=== PATIENT | female | born 1945 | race Caucasian/White ===

== ENCOUNTER 2020-09-13 12:53 | Emergency (ER) | payer MEDICARE, OTHER ==
--- NOTE | 2020-09-13 13:25 | ER Document Report ---
ED Medical Screen (RME) - General Chief Complaint: Shortness Of Breath Stated Complaint: SHORTNESS OF BREATH Time Seen by Provider: 09/13/20 13:17 - HPI Notes: 09/13/20 13:22 75 year old with a history of hypertension, hyperlipidemia and hypothyroidism female presents to ER today with complaints of SOB on exertion that has become progressively worse since starting over the weekend. Reports she started with LUQ abd pain and bloating today. denies any cp, n/v/d, fevers, chills. has not tried any otc meds for her symptoms. Denies any pedal edema. Denies any asthma, emphysema, smoking. Denies any Covid positive exposure. last bowel movement was yesterday, normal for patient. I have greeted and performed a rapid initial assessment of this patient. A comprehensive ED assessment and evaluation of the patient, analysis of test results and completion of the medical decision making process will be conducted by additional ED providers. PHYSICAL EXAMINATION: GENERAL: Well-appearing, well-nourished and in no acute distress. HEAD: Atraumatic, normocephalic. EYES: Pupils equal round extraocular movements intact, conjunctiva are normal. NECK: Normal range of motion CV: s1, s2 regular LUNGS: No respiratory distress abd: LUQ abd pain on palpation, no cva tenderness appreciated. Physical Exam - Vital signs Vitals: Temp Pulse Resp BP Pulse Ox 98.5 F 107 H 20 127/77 H 100 09/13/20 13:02 09/13/20 13:02 09/13/20 13:02 09/13/20 13:02 09/13/20 13:02 Course - Vital Signs Vital signs: Temp Pulse Resp BP Pulse Ox 98.5 F 107 H 20 127/77 H 100 09/13/20 13:02 09/13/20 13:02 09/13/20 13:02 09/13/20 13:02 09/13/20 13:02
--- NOTE | 2020-09-13 14:04 | RADIOLOGY REPORT (SQ) ---
EXAM DESCRIPTION: CHEST SINGLE VIEW IMAGES COMPLETED DATE/TIME: 09/13/2020 1:47 pm REASON FOR STUDY: LUQ abd pain x 3 days, +bloating COMPARISON: None. EXAM PARAMETERS: NUMBER OF VIEWS: One view. TECHNIQUE: Single frontal radiographic view of the chest acquired. RADIATION DOSE: NA LIMITATIONS: None. FINDINGS: LUNGS AND PLEURA: No opacities, masses or pneumothorax. No pleural effusion. MEDIASTINUM AND HILAR STRUCTURES: No masses. Contour normal. HEART AND VASCULAR STRUCTURES: Heart normal in size. Normal vasculature. BONES: No acute findings. HARDWARE: None in the chest. OTHER: No other significant finding. IMPRESSION: NO ACUTE RADIOGRAPHIC FINDING IN THE CHEST. TECHNICAL DOCUMENTATION: JOB ID: [id number] 2010 [employer]- All Rights Reserved Reading location - IP/workstation name: [email or web address]
[2020-09-13 14:08] LABS: ABSOLUTE BASOPHILS # (AUTO) 0.1 10^3/uL (0.0-0.2); ABSOLUTE EOSINOPHILS # (AUTO) 0.2 10^3/uL (0.0-0.6); ABSOLUTE LYMPHOCYTES (AUTO) 1.5 10^3/uL (0.5-4.7); ABSOLUTE NEUT (AUTO) 14.4 10^3/uL (1.7-8.2); BASOPHILS % (AUTO) 0.5 % (0-2); EOSINOPHILS % (AUTO) 0.9 % (0-6); HEMATOCRIT 36.2 % (36.0-47.0); HEMOGLOBIN 12.1 g/dL (12.0-15.5); LYMPHOCYTES % (AUTO) 8.8 % (13-45); MEAN CORPUSCULAR HEMOGLOBIN 26.3 pg (27.0-33.4); MEAN CORPUSCULAR HGB CONC 33.3 g/dL (32.0-36.0); MEAN CORPUSCULAR VOLUME 79 fl (80-97); MONOCYTES % (AUTO) 5.7 % (3-13); PLATELET COUNT 422 10^3/uL (150-450); RED BLOOD COUNT 4.59 10^6/uL (3.72-5.28); RED CELL DISTRIBUTION WIDTH 15.1 % (11.5-14.0); SEGMENTED NEUTROPHILS % (AUTO) 84.1 % (42-78); TOTAL CELLS COUNTED % (AUTO) 100 %; WHITE BLOOD COUNT 17.1 10^3/uL (4.0-10.5)
--- NOTE | 2020-09-13 14:19 | EKG REPORT ---
SEVERITY:- ABNORMAL ECG - SINUS TACHYCARDIA ABNRM R PROG, CONSIDER ASMI OR LEAD PLACEMENT NONSPECIFIC T ABNORMALITIES, LATERAL LEADS : Confirmed by: Ayla Landers MD 13-Sep-2020 14:18:42
[2020-09-13 14:26] LABS: ALBUMIN 3.4 g/dL (3.5-5.0); ALKALINE PHOSPHATASE 94 U/L (38-126); ANION GAP 10 (5-19); ASPARTATE AMINO TRANSFERASE 35 U/L (14-36); BILIRUBIN,DIRECT 0.1 mg/dL (0.0-0.4); BILIRUBIN,TOTAL 0.8 mg/dL (0.2-1.3); BLOOD UREA NITROGEN 24 mg/dL (7-20); CARBON DIOXIDE 25 mmol/L (22-30); CHLORIDE 93 mmol/L (98-107); GLUCOSE 151 mg/dL (75-110); POTASSIUM 4.5 mmol/L (3.6-5.0); TOTAL PROTEIN 6.1 g/dL (6.3-8.2)
--- NOTE | 2020-09-13 14:56 | ER Document Report ---
ED General - General Chief Complaint: Shortness Of Breath Stated Complaint: SHORTNESS OF BREATH Time Seen by Provider: 09/13/20 13:17 Mode of Arrival: Ambulatory Information source: Patient - HPI Notes: Patient presents complaining of shortness of breath for 3 days and abdominal pain for 1 day. No vomiting but some nausea. Decreased appetite. No diarrhea. No problems urination. No cough cold or congestion. She denies any known Covid virus exposures. The abdominal pain is been mild and crampy. Nothing makes it better or worse. It radiates throughout her abdomen. She has had a hysterectomy but no other previous abdominal surgeries. - Related Data Allergies/Adverse Reactions: No Known Allergies Allergy (Verified 09/13/20 14:33) Home Medications: simvastatin, bisoprolol, levothyroxine Past Medical History - General Information source: Patient - Social History Smoking Status: Former Smoker Frequency of alcohol use: None Drug Abuse: None Family History: Reviewed & Not Pertinent Patient has homicidal ideation: No - Past Medical History Cardiac Medical History: Reports: Hx Hypercholesterolemia, Hx Hypertension Past Surgical History: Reports: Hx Section, Hx Hysterectomy, Hx Oral Surgery - wisdom teeth Review of Systems - Review of Systems Constitutional: denies: Chills, Fever Cardiovascular: denies: Chest pain, Palpitations Respiratory: Short of breath. denies: Cough, Hemoptysis -: Yes All other systems reviewed and negative Physical Exam - Vital signs Vitals: Temp Pulse Resp BP Pulse Ox 98.5 F 107 H 20 127/77 H 100 09/13/20 13:02 09/13/20 13:02 09/13/20 13:02 09/13/20 13:02 09/13/20 13:02 Interpretation: Tachycardic - General General appearance: Appears well, Alert - HEENT Head: Normocephalic, Atraumatic Eyes: Normal Pupils: PERRL - Respiratory Respiratory status: No respiratory distress Chest status: Nontender Breath sounds: Decreased air movement Chest palpation: Normal - Cardiovascular Rhythm: Tachycardia Heart sounds: Normal auscultation Murmur: No - Abdominal Inspection: Normal Distension: Distended Bowel sounds: Normal Tenderness: Tender Organomegaly: No organomegaly - Back Back: Normal, Nontender - Extremities General upper extremity: Normal inspection, Nontender, Normal color, Normal ROM, Normal temperature General lower extremity: Normal inspection, Nontender, Normal color, Normal ROM, Normal temperature, Normal weight bearing. No: Annie's sign - Neurological Neuro grossly intact: Yes Cognition: Normal Orientation: AAOx4 [place] Coma Scale Eye Opening: Spontaneous [place] Coma Scale Verbal: Oriented [place] Coma Scale Motor: Obeys Commands [place] Coma Scale Total: 15 Speech: Normal Motor strength normal: LUE, RUE, LLE, RLE Sensory: Normal - Psychological Associated symptoms: Normal affect, Normal mood - Skin Skin Temperature: Warm Skin Moisture: Dry Skin Color: Normal Course - Re-evaluation Re-evalutation: 09/13/20 18:45 Patient presents with abdominal distention and shortness of breath. She is found to have an elevated white blood cell count on laboratories as well. She does have a urinary tract infection. She also has what appears to be metastatic cancer. I have called and discussed this case with the oncologist, Dr. Ennis. He will see the patient in the office tomorrow. Patient is agreeable to this. For the shortness of breath I did consider the possibly patient may have a pulmonary embolism given the diagnosis of possible cancer. However patient has a pulse ox of 100% on room air. In addition she cannot receive the dye because she received the dye for the CAT scan of the abdomen. I told her to make sure if she is still short of breath mild to discuss a a CT scan of the chest to look for a blood clot with the oncologist. - Vital Signs Vital signs: Temp Pulse Resp BP Pulse Ox 98.5 F 107 H 20 127/77 H 100 09/13/20 13:02 09/13/20 13:02 09/13/20 13:02 09/13/20 13:02 09/13/20 13:02 - Laboratory Results Result Diagrams: 09/13/20 13:28 09/13/20 13:28 Laboratory Results Interpreted: 09/13/20 09/13/20 09/13/20 13:28 13:28 15:47 WBC 17.1 H MCV 79 L MCH 26.3 L RDW 15.1 H Lymph % (Auto) 8.8 L Absolute Neuts (auto) 14.4 H Seg Neutrophils % 84.1 H Sodium 128.4 L Chloride 93 L BUN 24 H Est GFR ( Amer) 58 L Est GFR (MDRD) Non-Af 48 L Glucose 151 H Total Protein 6.1 L Albumin 3.4 L Urine Protein 30 H Urine Urobilinogen 2.0 H Ur Leukocyte Esterase LARGE H Urine Ascorbic Acid 40 H Critical Laboratory Results Reviewed: No Critical Results - Radiology Results Critical Radiology Results Reviewed: Yes Attending or Supervising Physician who Reviewed Radiology: GOPI WOODY Discharge - Discharge Clinical Impression: Abdominal pain Qualifiers: Abdominal location: generalized Qualified Code(s): R10.84 - Generalized abdominal pain Dyspnea Qualifiers: Dyspnea type: other forms of dyspnea Qualified Code(s): R06.09 - Other forms of dyspnea UTI (urinary tract infection) Qualifiers: Urinary tract infection type: acute cystitis Hematuria presence: without hematuria Qualified Code(s): N30.00 - Acute cystitis without hematuria Abdominal mass Qualifiers: Abdominal location: left upper quadrant Qualified Code(s): R19.02 - Left upper quadrant abdominal swelling, mass and lump Condition: Stable Disposition: HOME, SELF-CARE Instructions: Abdominal Pain ([facility]), Urinary Tract Infection ([facility]) Prescriptions: Ondansetron [Zofran Odt 4 mg Tablet] 1 - 2 tab PO Q4HP PRN #10 tab.rapdis PRN Reason: Cefdinir 300 mg PO BID 7 Days #14 capsule Hydrocodone/Acetaminophen [[place] 5-325 mg Tablet] 1 tab PO Q6 PRN 3 Days #12 tablet PRN Reason: For Pain Referrals: IWONA WHITFIELD MD [Primary Care Provider] - Follow up as needed BENNY ENNIS MD [ACTIVE STAFF] - Follow up tomorrow
[2020-09-13 16:06] LABS: AMORPHOUS SEDIMENT,URINE TRACE /HPF; APPEARANCE,URINE CLOUDY; BILIRUBIN,URINE NEGATIVE (NEGATIVE); COLOR,URINE AMBER; GLUCOSE, URINE NEGATIVE (NEGATIVE); KETONES,URINE NEGATIVE (NEGATIVE); LEUKOCYTE ESTERASE,URINE LARGE (NEGATIVE); NITRITE,URINE NEGATIVE (NEGATIVE); PROTEIN,URINE 30 mg/dL (NEGATIVE); URINE SPECIFIC GRAVITY 1.019
--- NOTE | 2020-09-13 18:29 | RADIOLOGY REPORT (SQ) ---
EXAM DESCRIPTION: CT ABD/PELVIS WITH IV ORAL IMAGES COMPLETED DATE/TIME: 09/13/2020 2:33 pm REASON FOR STUDY: LUQ abd pain x 3 days, +bloating COMPARISON: None. TECHNIQUE: CT scan of the abdomen and pelvis performed using helical scanning technique with dynamic intravenous contrast injection. Oral contrast was also given. Images reviewed with lung, soft tissu e, and bone windows. Reconstructed coronal and sagittal MPR images reviewed. Delayed images for evalu ation of the urinary system also acquired. All images stored on PACS. All CT scanners at this facility use dose modulation, iterative reconstruction, and/or weight based d osing when appropriate to reduce radiation dose to as low as reasonably achievable (ALARA). [facility]: Dose Right [facility]: CareDose [facility]: Dose Right [facility]: Teradose 4D [facility]: [employer] CONTRAST TYPE AND DOSE: contrast/concentration: Isovue 350.00 mmol/ml; Total Contrast Delivered: 100 .0 ml; Total Saline Delivered: 72.0 ml RENAL FUNCTION: Creatinine 1.12 RADIATION DOSE: CT Rad equipment meets quality standard of care and radiation dose reduction techniq ues were employed. CTDIvol: 15.4 - 18.4 mGy. DLP: 1966 mGy-cm.. LIMITATIONS: None. FINDINGS: LOWER CHEST: Minimal basilar atelectasis/scarring. LIVER: Normal size. No masses. No dilated ducts. SPLEEN: Normal size. No focal lesions. PANCREAS: No masses. No significant calcifications. No adjacent inflammation or peripancreatic fluid collections. Pancreatic duct not dilated. GALLBLADDER: Cholelithiasis with single large gallstone demonstrated measuring up to 2.7 cm. No asso ciated inflammatory changes. ADRENAL GLANDS: No significant masses or asymmetry. RIGHT KIDNEY AND URETER: No solid masses. No significant calcifications. No hydronephrosis or hyd roureter. LEFT KIDNEY AND URETER: No solid masses. No significant calcifications. No hydronephrosis or hydr oureter. AORTA AND VESSELS: No aneurysm. No dissection. Renal arteries, SMA, celiac without stenosis. RETROPERITONEUM: Enlarged left periaortic lymph node suspicious for metastatic adenopathy. Represent ative lymph node measures 2.0 x 1.8 cm (series 4, image 30). BOWEL AND PERITONEAL CAVITY: Multiple masses along the gastrohepatic ligament suspicious for metastat ic lymphadenopathy. There is a mass along the lesser curvature of the stomach measuring approximatel y 5.9 x 4.7 cm which could represent metastatic lymphadenopathy. Cannot exclude an exophytic lesion off of the stomach. There is some diffuse gastric wall thickening. Multiple nodules also demonstrat ed in the left upper quadrant lateral to the stomach. Moderate ascites with multiple small nodules/o mental caking along the anterior abdomen and pelvis suspicious for peritoneal metastatic disease. No small bowel obstruction. There may be some small nodules also demonstrated posteriorly on the right (series 6, image 47 and image 61). Moderate stool in the colon. No significant colon wall thickeni ng. APPENDIX: Partially visualized normal appendix. PELVIS: Status post hysterectomy. Urinary bladder demonstrates a small amount of gas in the lumen, p robably due to recent instrumentation. ABDOMINAL WALL: No masses. No hernias. BONES: Circumscribed small sclerotic lesion in the left iliac bone probably representing a bone islan d. No destructive bone lesions. OTHER: No other significant finding. IMPRESSION: 1. Multiple masses in the central and left upper abdomen suspicious for metastatic dise ase. Mass along the lesser curvature of the stomach could represent metastatic lymphadenopathy. Can not definitively exclude an exophytic mass arising off of the stomach. There is some diffuse gastric wall thickening which could reflect primary neoplasm. 2. Moderate ascites with omental caking and peritoneal nodularity suspicious for peritoneal carcinom atosis. 3. Cholelithiasis. 4. Gas within the urinary bladder lumen is probably iatrogenic. Correlate with any recent history o f instrumentation. TECHNICAL DOCUMENTATION: JOB ID: [id number] Quality ID # [id number]: Final reports with documentation of one or more dose reduction techniques (e.g., Au tomated exposure control, adjustment of the mA and/or kV according to patient size, use of iterative reconstruction technique) 2010 [employer]- All Rights Reserved Reading location - IP/workstation name: [email or web address]
[2020-09-13 19:29] VITALS: BP 116/68
== END 2020-09-13 19:23 | disposition home or self-care (01) ==
LOC: ER 12:53
DX: R10.84 Generalized abdominal pain (principal); R06.09 Other forms of dyspnea; R19.02 Left upper quadrant abdominal swelling, mass and lump; N30.00 Acute cystitis without hematuria; R06.02 Shortness of breath; R11.0 Nausea; D72.829 Elevated white blood cell count, unspecified; E78.00 Pure hypercholesterolemia, unspecified; I10 Essential (primary) hypertension; Z90.710 Acquired absence of both cervix and uterus
CPT/HCPCS: 36415; 71045; 74177; 80053; 81001; 83690; 84484; 85025; 93005; 93010; 99285

== ENCOUNTER 2020-09-15 11:06 | Day surgery (SDC) | payer MEDICARE, OTHER ==
[2020-09-15 12:18] LABS: HEMATOCRIT 35.4 % (36.0-47.0); HEMOGLOBIN 11.5 g/dL (12.0-15.5); MEAN CORPUSCULAR HEMOGLOBIN 25.7 pg (27.0-33.4); MEAN CORPUSCULAR HGB CONC 32.5 g/dL (32.0-36.0); MEAN CORPUSCULAR VOLUME 79 fl (80-97); PLATELET COUNT 400 10^3/uL (150-450); RED BLOOD COUNT 4.48 10^6/uL (3.72-5.28); RED CELL DISTRIBUTION WIDTH 15.5 % (11.5-14.0); WHITE BLOOD COUNT 23.4 10^3/uL (4.0-10.5)
[2020-09-15 12:26] LABS: INTERNATIONAL RATION (INR) 1.21; PROTHROMBIN TIME 15.5 SEC (11.4-15.4)
[2020-09-15 12:27] LABS: PARTIAL THROMBOPLASTIN TIME 29.6 SEC (23.5-35.8)
[2020-09-15 12:41] LABS: BLOOD UREA NITROGEN 33 mg/dL (7-20)
--- NOTE | 2020-09-15 15:35 | RADIOLOGY REPORT (SQ) ---
EXAM DESCRIPTION: U/S ABD PARACENTESIS IMAGES COMPLETED DATE/TIME: 09/15/2020 2:17 pm REASON FOR STUDY: MALIGNANT ASCITES COMPARISON None. LIMITATIONS: None. PROCEDURE: After obtaining informed consent, the patient was brought to the ultrasound suite. The p rocedure was performed with the patient on a gurney. Ultrasound was used to identify a prominent poc ket of ascites in the right lower quadrant. An appropriate access site was selected. The patient wa s prepped and draped in usual sterile fashion. The access site was anesthetized with 7 mL 1% lidoca ine. A Bixv-O-[id number] needle was advanced into the fluid. After aspiration of fluid the needle, th e catheter was advanced off the needle into the fluid. A total of 4750 mL of serosanguineous fluid w as removed. Fluid was sent to lab for analysis per doctor's orders. The patient tolerated the proce dure well left the department in satisfactory condition. IMPRESSION: Successful ultrasound-guided paracentesis COMMENT: Patient medication list reviewed: Yes- Quality ID# [id number]:Eligible professional attests to doc umenting in the medical record they obtained, updated, or reviewed the patient's current medications. TECHNICAL DOCUMENTATION: JOB ID: [id number] 2010 [email or web address]- All Rights Reserved Reading location - IP/workstation name: [email or web address]
[2020-09-15 16:56] VITALS: BP 97/59
== END 2020-09-15 16:20 | disposition home or self-care (01) ==
LOC: RAD 11:06
PROVIDERS: ATTEND Internal Medicine
DX: R18.8 Other ascites (principal); E86.0 Dehydration; R11.0 Nausea; Z79.01 Long term (current) use of anticoagulants; Z79.84 Long term (current) use of oral hypoglycemic drugs; Z79.899 Other long term (current) drug therapy
CPT/HCPCS: 36415; 49083; 82565; 84520; 85027; 85610; 85730; 88305; 88313; 88341; 88342

== ENCOUNTER 2020-09-15 16:38 | Inpatient (IN) | payer MEDICARE ==
--- NOTE | 2020-09-15 17:25 | ER Document Report ---
ED Medical Screen (RME) - General Stated Complaint: SHORTNESS OF BREATH Time Seen by Provider: 09/15/20 17:11 Primary Care Provider: IWONA WHITFIELD MD [Primary Care Provider] - Follow up as needed Notes: 35-year-old female with newly diagnosed masses in the abdomen with ascites comes emergency department for chief complaint of difficulty breathing. Patient states with any exertion including sitting up she becomes short of breath. She denies lower extremity swelling, history of DVT. Patient had abdominal centesis today with drainage of 4700 cc from the abdomen. She states she thought she would feel better afterwards but she still has shortness of breath. She has started following with Dr. Bowser (as of yesterday). - Related Data Allergies/Adverse Reactions: No Known Allergies Allergy (Verified 09/13/20 14:33) Past Medical History - Social History Chew tobacco use (# tins/day): No Frequency of alcohol use: None Drug Abuse: None - Past Medical History Cardiac Medical History: Reports: Hx Hypercholesterolemia, Hx Hypertension Denies: Hx Coronary Artery Disease, Hx Heart Attack Pulmonary Medical History: Denies: Hx Asthma, Hx Bronchitis, Hx COPD, Hx Pneumonia Neurological Medical History: Denies: Hx Cerebrovascular Accident, Hx Seizures Musculoskeltal Medical History: Denies Hx Arthritis Past Surgical History: Reports: Hx Section, Hx Hysterectomy, Hx Oral Surgery - wisdom teeth - Immunizations Hx Diphtheria, Pertussis, Tetanus Vaccination: No - UNKNOWN Physical Exam - Vital signs Vitals: Temp 97.3 F 09/15/20 16:38 - Respiratory Breath sounds: Other - Coarse breath sounds in the lower lung huynh but no overt rales. Speaks in full sentences. No respiratory distress. Course - Re-evaluation Re-evalutation: 09/15/20 17:25 I have greeted and performed a rapid initial assessment of this patient. A comprehensive ED assessment and evaluation of the patient, analysis of test r esults and completion of the medical decision making process will be conducted by additional ED providers. - Vital Signs Vital signs: Temp Pulse Resp BP Pulse Ox 97.3 F 09/15/20 16:38 Doctor's Discharge - Discharge Referrals: IWONA WHITFIELD MD [Primary Care Provider] - Follow up as needed
[2020-09-15 18:14] LABS: HEMOGLOBIN 11.4 g/dL (12.0-15.5); MEAN CORPUSCULAR HEMOGLOBIN 25.7 pg (27.0-33.4); MEAN CORPUSCULAR HGB CONC 32.5 g/dL (32.0-36.0); MEAN CORPUSCULAR VOLUME 79 fl (80-97); PLATELET COUNT 411 10^3/uL (150-450); RED BLOOD COUNT 4.44 10^6/uL (3.72-5.28); RED CELL DISTRIBUTION WIDTH 15.3 % (11.5-14.0); WHITE BLOOD COUNT 20.7 10^3/uL (4.0-10.5)
[2020-09-15 18:32] LABS: ALBUMIN 2.7 g/dL (3.5-5.0); ALKALINE PHOSPHATASE 75 U/L (38-126); ASPARTATE AMINO TRANSFERASE 35 U/L (14-36); BILIRUBIN,DIRECT 0.2 mg/dL (0.0-0.4); BILIRUBIN,TOTAL 0.6 mg/dL (0.2-1.3); BLOOD UREA NITROGEN 35 mg/dL (7-20); CALCIUM 8.1 mg/dL (8.4-10.2); GLUCOSE 143 mg/dL (75-110); POTASSIUM 5.1 mmol/L (3.6-5.0); TOTAL PROTEIN 5.2 g/dL (6.3-8.2)
[2020-09-15 18:37] LABS: CARBON DIOXIDE 26 mmol/L (22-30); CHLORIDE 95 mmol/L (98-107)
[2020-09-15 18:38] LABS: ANION GAP 5 (5-19)
[2020-09-15 18:41] LABS: ABSOLUTE LYMPHOCYTES# (MANUAL) 1.9 10^3/uL (0.5-4.7); ANISOCYTOSIS SLIGHT; BASOPHILS % (MANUAL) 0 % (0-2); EOSINOPHILS % (MANUAL) 0 % (0-6); LYMPHOCYTES % (MANUAL) 9 % (13-45); MONOCYTES % (MANUAL) 5 % (3-13); PLATELET COMMENT ADEQUATE; SEGMENTED NEUTROPHILS % (MAN) 86 % (42-78); TOTAL CELLS COUNTED 100
[2020-09-15 18:42] LABS: HYPOCHROMASIA SLIGHT
[2020-09-15 18:43] LABS: BURR CELLS 1+; OVALOCYTES SLIGHT
[2020-09-15 18:44] LABS: POLYCHROMASIA SLIGHT
[2020-09-15] MEDS ORDERED: MORPHINE SULFATE 10 MG/ML INJ IV ONE (19:00)
--- NOTE | 2020-09-15 19:13 | RADIOLOGY REPORT (SQ) ---
EXAM DESCRIPTION: CTA CHEST IMAGES COMPLETED DATE/TIME: 09/15/2020 3:51 pm REASON FOR STUDY: Dyspnea on exertion, shortness of breath, cancer COMPARISON: Single-view chest 09/13/[address] abdomen pelvis 09/13/2020. TECHNIQUE: CT scan of the chest performed using helical scanning technique with dynamic intravenous contrast injection. Images reviewed with lung, soft tissue and bone windows. Reconstructed coronal and sagittal MPR images reviewed. Additional 3 dimensional post-processing performed to develop Maximal Intensity Projection images (HI P). All images stored on PACS. All CT scanners at this facility use dose modulation, iterative reconstruction, and/or weight based d osing when appropriate to reduce radiation dose to as low as reasonably achievable (ALARA). [facility]: Dose Right [facility]: CareDose [facility]: Dose Right [facility]: Teradose 4D [facility]: [employer] CONTRAST TYPE AND DOSE: contrast/concentration: Isovue 350.00 mmol/ml; Total Contrast Delivered: 74. 0 ml; Total Saline Delivered: 48.0 ml Contrast bolus optimized for the pulmonary arteries. Not diagnostic for the aorta. RENAL FUNCTION: Creatinine 1.49 RADIATION DOSE: CT Rad equipment meets quality standard of care and radiation dose reduction techniq ues were employed. CTDIvol: 9.9 - 14.8 mGy. DLP: 509 mGy-cm. . LIMITATIONS: None. FINDINGS: LUNGS AND PLEURA: Some mild linear opacities likely representing atelectasis. No signific ant consolidation or suspicious pulmonary nodule. No pleural effusion. No pneumothorax. 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 HEART: No pericardial effusion. Coronary artery calcifications. There is some enlargement of the rig ht heart with slight leftward deviation of the intraventricular septum. PULMONARY ARTERIES: Extensive filling defects within the distal aspect of the main right and main lef t pulmonary arteries extending into the lobar, segmental, and subsegmental pulmonary artery supplying all lobes. No larger central saddle pulmonary embolism HILAR AND MEDIASTINAL STRUCTURES: No identified masses or abnormal nodes. HARDWARE: None in the chest. UPPER ABDOMEN: Masses in the upper abdomen are partially visualized and similar to recent CT abdomen pelvis. Mild ascites and evidence of peritoneal carcinomatosis. THYROID AND OTHER SOFT TISSUES: No masses. No adenopathy. BONES: No acute or significant finding. 3D MIPS: Confirm above findings. OTHER: No other significant finding. IMPRESSION: Extensive bilateral pulmonary emboli with evidence of right heart strain. COMMENT: This report was called to JAYLA MARLEY at16:02 [place] time on 09/15/2020. Quality ID # 436: Final reports with documentation of one or more dose reduction techniques (e.g., Au tomated exposure control, adjustment of the mA and/or kV according to patient size, use of iterative reconstruction technique) TECHNICAL DOCUMENTATION: JOB ID: [id number] 2010 [employer]- All Rights Reserved Reading location - IP/workstation name: [email or web address]
--- NOTE | 2020-09-15 20:55 | RADIOLOGY REPORT (SQ) ---
EXAM DESCRIPTION: CT HEAD WITHOUT CLINICAL HISTORY: 75 years Female cancer TECHNIQUE: Noncontrast CT head. All CT scans at this facility use dose modulation, iterative reconstruction, and/or weight based dosing when appropriate to reduce radiation dose to as low as reasonably achievable. COMPARISON: None. FINDINGS: A small subcentimeter area of heterogeneity, with both hyperdense and hypodense components, is seen in the right parietal cortical/subcortical region, incompletely evaluated on this exam. Visualized portions of paranasal sinuses and mastoids are clear. Small well-circumscribed exophytic calcific structures projecting off the outer table of the frontal calvarium bilaterally are nonspecific but favored to represent benign calcific lesions. IMPRESSION: Small area of heterogeneity in the right parietal cortical/subcortical region. Further evaluation with contrast enhanced MRI is recommended. Given presence of hyperdensity, a subtle hemorrhagic component is not excluded.
[2020-09-15] MEDS ORDERED: ENOXAPARIN SODIUM INJ 100 MG/1 ML DISP.SYRIN SUBCUT ONE (21:39)
[2020-09-15] MEDS ORDERED: VANCOMYCIN HCL INJ 1000 MG VIAL IV ONE (21:40)
[2020-09-15] MEDS ORDERED: HEPARIN SOD (PORCINE) 1,000 UNIT/ML 1 ML VIAL IV ONE (21:40)
[2020-09-15] MEDS ORDERED: CEFEPIME 2 GM/D5W RTU 2 GM/50 ML RTUPB IV ONE (21:41)
[2020-09-15] MEDS ORDERED: APIXABAN 5 MG TABLET PO ONE (21:41)
--- NOTE | 2020-09-15 21:49 | ER Document Report ---
ED Respiratory Problem - General Chief Complaint: Shortness Of Breath Stated Complaint: SHORTNESS OF BREATH Time Seen by Provider: 09/15/20 17:11 Primary Care Provider: IWONA WHITFIELD MD [Primary Care Provider] - Follow up as needed Mode of Arrival: Ambulatory Information source: Patient Notes: AYAKA CAMACHO) Course - Re-evaluation Re-evalutation: 09/15/20 19:02 Troponin is elevated at 0.4. I strongly suspect pulmonary embolism. Radiologist called and reports extensive clot load with some right heart strain. I added CT of the head. - Vital Signs Vital signs: Temp Pulse Resp BP Pulse Ox 97.3 F 09/15/20 16:38 - Laboratory Results Result Diagrams: 09/15/20 17:56 09/15/20 17:56 Laboratory Results Interpreted: 09/15/20 09/15/20 17:56 17:56 WBC 20.7 H Hgb 11.4 L Hct 35.0 L MCV 79 L MCH 25.7 L RDW 15.3 H Seg Neuts % (Manual) 86 H Lymphocytes % (Manual) 9 L Abs Neuts (Manual) 17.8 H Sodium 125.5 L Potassium 5.1 H Chloride 95 L BUN 35 H Creatinine 1.53 H Est GFR ( Amer) 40 L Est GFR (MDRD) Non-Af 33 L Glucose 143 H Calcium 8.1 L Total Protein 5.2 L Albumin 2.7 L Critical Laboratory Results Reviewed: Yes Attending or Supervising Physician who Reviewed Labs: HONEY SCRUGGS JR - Radiology Results Critical Radiology Results Reviewed: Yes Attending or Supervising Physician who Reviewed Radiology: HONEY SCRUGGS JR Original Note: ED Medical Screen (BRUCE CAMACHO) - General Stated Complaint: SHORTNESS OF BREATH Time Seen by Provider: 09/15/20 17:11 Primary Care Provider: IWONA WHITFIELD MD [Primary Care Provider] - Follow up as needed Notes: 35-year-old female with newly diagnosed masses in the abdomen with ascites comes emergency department for chief complaint of difficulty breathing. Patient states with any exertion including sitting up she becomes short of breath. She denies lower extremity swelling, history of DVT. Patient had abdominal centesis today with drainage of 4700 cc from the abdomen. She states she thought she would feel better afterwards but she still has shortness of breath. She has started following with Dr. Bowser (as of yesterday). MY NOTES 75-year-old female arrives with chief complaint of having difficulty breathing status post paracentesis today. Patient continues to have shortness of breath and is followed by Dr. Bowser. Patient complains of difficulty moving all extremities all week long. CTA as ordered by Bruce MARLEY it was positive for bilateral PEs but also CT head returned as hyperdensity in the right parietal area subcortical suspected of hemorrhagic and therefore I called Dr. Bowser at 2153 and he advises putting in consult for himself with admission. We will order MRI of her head. We will hold the order for Eliquis and Lovenox heparin until we get a MRI results. - Related Data Allergies/Adverse Reactions: No Known Allergies Allergy (Verified 09/13/20 14:33) Past Medical History - General Information source: Patient - Social History Smoking Status: Never Smoker Cigarette use (# per day): No Chew tobacco use (# tins/day): No Smoking Education Provided: No Frequency of alcohol use: None Drug Abuse: None Lives with: Family Family History: Reviewed & Not Pertinent Patient has suicidal ideation: No Patient has homicidal ideation: No - Past Medical History Cardiac Medical History: Reports: Hx Hypercholesterolemia, Hx Hypertension Denies: Hx Coronary Artery Disease, Hx Heart Attack Pulmonary Medical History: Denies: Hx Asthma, Hx Bronchitis, Hx COPD, Hx Pneumonia Neurological Medical History: Denies: Hx Cerebrovascular Accident, Hx Seizures Musculoskeletal Medical History: Denies Hx Arthritis Past Surgical History: Reports: Hx Section, Hx Hysterectomy, Hx Oral Surgery - wisdom teeth - Immunizations Hx Diphtheria, Pertussis, Tetanus Vaccination: No - UNKNOWN Review of Systems - Review of Systems Constitutional: See HPI, Weakness, Recent illness EENT: No symptoms reported Cardiovascular: See HPI, Dyspnea, Lightheaded Respiratory: See HPI, Short of breath Gastrointestinal: No symptoms reported Genitourinary: No symptoms reported Female Genitourinary: No symptoms reported Musculoskeletal: No symptoms reported Skin: No symptoms reported Hematologic/Lymphatic: No symptoms reported Neurological/Psychological: See HPI, Weakness -: Yes All other systems reviewed and negative Physical Exam - Vital signs Vitals: Temp 97.3 F 09/15/20 16:38 Interpretation: Normal - General General appearance: Appears well, Alert - HEENT Head: Normocephalic, Atraumatic Eyes: Normal Pupils: PERRL - Respiratory Respiratory status: No respiratory distress Chest status: Nontender Breath sounds: Normal Chest palpation: Normal - Cardiovascular Rhythm: Regular Heart sounds: Normal auscultation Murmur: No - Abdominal Inspection: Normal Distension: No distension Bowel sounds: Normal Tenderness: Nontender Organomegaly: No organomegaly - Rectal Hemorrhoids: Other - Deferred - Genitourinary Bimanuel exam: Other - Deferred - Back Back: Normal, Nontender - Extremities General upper extremity: Normal inspection, Nontender, Normal color, Normal ROM, Normal temperature General lower extremity: Normal inspection, Nontender, Normal color, Normal ROM, Normal temperature, Normal weight bearing. No: Annie's sign - Neurological Neuro grossly intact: Yes Cognition: Normal Orientation: AAOx4 [place] Coma Scale Eye Opening: Spontaneous [place] Coma Scale Verbal: Oriented [place] Coma Scale Motor: Obeys Commands [place] Coma Scale Total: 15 Speech: Normal Motor strength normal: LUE, RUE, LLE, RLE Sensory: Normal - Psychological Associated symptoms: Normal affect, Normal mood - Skin Skin Temperature: Warm Skin Moisture: Dry Skin Color: Normal Course - Vital Signs Vital signs: Temp Pulse Resp BP Pulse Ox 97.7 F 20 104/55 L 97 09/15/20 23:32 09/15/20 23:32 09/15/20 23:32 09/15/20 23:32 - Laboratory Results Result Diagrams: 09/15/20 17:56 09/15/20 17:56 Laboratory Results Interpreted: 09/15/20 09/15/20 17:56 17:56 WBC 20.7 H Hgb 11.4 L Hct 35.0 L MCV 79 L MCH 25.7 L RDW 15.3 H Seg Neuts % (Manual) 86 H Lymphocytes % (Manual) 9 L Abs Neuts (Manual) 17.8 H Sodium 125.5 L Potassium 5.1 H Chloride 95 L BUN 35 H Creatinine 1.53 H Est GFR ( Amer) 40 L Est GFR (MDRD) Non-Af 33 L Glucose 143 H Calcium 8.1 L Total Protein 5.2 L Albumin 2.7 L Critical Laboratory Results Reviewed: Yes Attending or Supervising Physician who Reviewed Labs: HONEY SCRUGGS JR - Radiology Results Radiology Results Interpreted: 09/16/20 01:[address] A[address] Castillo radiologist Critical Radiology Results Reviewed: Yes Attending or Supervising Physician who Reviewed Radiology: HONEY SCRUGGS JR - EKG Interpretation by Me EKG shows normal: Sinus rhythm Rate: Normal Rhythm: NSR - 98 bpm with probable inferior infarct age indeterminate 2 3 aVF and also no ST elevation to anterior leads and no ST depression anterior leads and no T wave inversion and no T wave elevation and axis appears to be within normal limits and I read this EKG and I agree with the EKG machine findings Critical Care Note - Critical Care Note Comments: I spoke with Dr. Bowser as per HPI my notes and then with Dr. Escoto at 2200 and he advises continuing with MRI and will await these findings prior to admission. MRI findings arrived around 0 115 and these were negative for any sorts of hemorrhage. It appears patient has subacute versus chronic infarct of parietal area gliosis. I spoke with Dr. Escoto at 0 115 for admission at this time. We will proceed with heparin Lovenox Eliquis Discharge - Discharge Clinical Impression: Brain lesion, Elevated troponin Abdominal mass Qualifiers: Abdominal location: unspecified location Qualified Code(s): R19.00 - Intra- abdominal and pelvic swelling, mass and lump, unspecified site Pulmonary emboli Qualifiers: Pulmonary embolism type: unspecified Chronicity: unspecified Acute cor pulmonale presence: unspecified Qualified Code(s): I26.99 - Other pulmonary embolism without acute cor pulmonale Condition: Stable Disposition: ADMITTED INPATIENT Admitting Provider: [email or web address] Unit Admitted: IMCU Referrals: IWONA WHITFIELD MD [Primary Care Provider] - Follow up as needed
[2020-09-15 22:14] LABS: PROTHROMBIN TIME 15.4 SEC (11.4-15.4)
--- NOTE | 2020-09-16 01:15 | RADIOLOGY REPORT (SQ) ---
EXAM: MRI HEAD WITHOUT CLINICAL INDICATION: 75-year-old female with RIGHT parietal hemorrhage. COMPARISON: None. TECHNIQUE: Multiplanar, multi-sequence MR imaging of the brain without intravenous administration of contrast. FINDINGS: Focal area of curvilinear increased signal intensity is identified on diffusion-weighted imaging present at the level of the RIGHT parietal lobe, (series 4, image 22). No associated decreased signal intensity on ADC to suggest acute ischemia. On FLAIR weighted imaging there appears to be diffusely increased signal intensity without gyral thickening or edema at the level of the RIGHT parietal lobe suggesting gliosis, involving appearance of subacute to chronic infarction. Correlation with postcontrast imaging may be considered to evaluate for acuity. 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 Gradient echo imaging at this location reveals tiny petechial foci of cortically-based decreased signal intensity compatible with hemosiderin and suspected sequela of prior hemorrhage. This finding is likewise identified in a region of cortical gliosis and encephalomalacia on T2 coronal image, (series 10, image 24). Findings are suspected secondary to recent infarction with minimal residual diffusion signal intensity which may reflect subacute infarct versus focal diffusion signal intensity, artifactual of adjacent hemosiderin. Correlation with patient prior imaging and clinical history of recent stroke like symptoms or neurological deficits. 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 Short-term interval follow-up may be considered to evaluate for stability. No additional abnormal increased signal intensity is present on diffusion-weighted imaging to suggest restricted diffusion/acute infarction. T2/flair weighted imaging reveals multifocal areas of patchy increased signal intensity present in a subcortical and periventricular deep white matter distribution, a nonspecific finding however may be seen with small vessel ischemic change. There is no evidence of intracranial mass or edema. Midline structures are within normal limits. The ventricles and basal cisterns are normal in size and configuration. Major intracranial flow voids are identified. The paranasal sinuses and mastoid air cells are patent. IMPRESSION: 1. Increased signal intensity present at the level of the parietal lobe suspected secondary to sequela of subacute versus chronic infarction with associated gliosis, cortical laminar necrosis and sequela of petechial hemorrhage at this site. Please correlate with patient neurological findings and consider short-term interval follow-up for stability. No clearly acute hemorrhage is identified.
[2020-09-16] MEDS ORDERED: HEPARIN SOD (PORCINE) 1,000 UNIT/ML 1 ML VIAL IV ONE (01:45)
[2020-09-16] MEDS ORDERED: APIXABAN 5 MG TABLET PO ONE (01:45)
[2020-09-16] MEDS ORDERED: ENOXAPARIN SODIUM INJ 100 MG/1 ML DISP.SYRIN SUBCUT ONE (01:45)
[2020-09-16] MEDS ORDERED: OXYCODONE-ACETAMINOPHEN 5-325 MG TABLET PO PRN (02:00)
[2020-09-16] MEDS ORDERED: ACETAMINOPHEN 325 MG TABLET PO PRN (02:00)
[2020-09-16] MEDS ORDERED: ONDANSETRON HCL INJ/PF 4 MG/2 ML SDV IV PRN (02:00)
[2020-09-16] MEDS ORDERED: RINGERS SOLUTION,LACTATED 1,000 ML IV PRN (02:00)
[2020-09-16] MEDS ORDERED: CEFTRIAXONE 1 GM/D5W RTU 1 GM/50 ML RTUPB IV ONE (03:00)
--- NOTE | 2020-09-16 03:30 | PDOC H&P ---
History of Present Illness Admission Date/PCP: 09/16/20 01:31 IWONA WHITFIELD MD Patient complains of: Shortness of breath History of Present Illness: NHAN BLANTON is a 75 year old female with a history of hypertension, hyperlipidemia and prediabetes who was diagnosed with abdominal mass with possible malignant sciatic fluid 2 days back status post paracentesis with removal of 4750 mL of acetic fluid this morning is seen at the emergency department for 4 days duration of progressively worsening shortness of breath. After being seen at the ED 2 days back the shortness of breath was thought to be due to massive ascites and patient underwent ultrasound-guided paracentesis this morning. Following the procedure patient continued to feel short of breath and had no interval improvement in her symptoms. She states that her difficulty of breathing was worsening. She also reports a sharp pleuritic chest pain bilaterally when taking a deep breath. She denies hypertension, dizziness, focal weakness of extremities, dysarthria, dysphagia, change in her vision. She also denied any fever, chills, cough, hemoptysis, nausea, vomiting or diarrhea. Past Medical History Cardiac Medical History: Reports: Hyperlipidema, Hypertension Denies: Coronary Artery Disease, Myocardial Infarction Pulmonary Medical History: Denies: Asthma, Bronchitis, Chronic Obstructive Pulmonary Disease (COPD), Pneumonia Neurological Medical History: Denies: Seizures Musculoskeltal Medical History: Denies: Arthritis Hematology: Denies: Anemia Past Surgical History Past Surgical History: Reports: Section, Hysterectomy Social History Information Source: Patient Lives with: Family Smoking Status: Never Smoker Electronic Cigarette use?: No Hx Recreational Drug Use: No Drugs: None - Advance Directive Resuscitation Status: Full Code Family History Family History: Reviewed & Not Pertinent Parental Family History Reviewed: Yes Children Family History Reviewed: Yes Sibling(s) Family History Reviewed.: Yes Medication/Allergy Home Medications: Cefdinir 300 mg PO BID 7 Days #14 capsule 09/13/20 Hydrocodone/Acetaminophen [[place] 5-325 mg Tablet] 1 tab PO Q6 PRN 3 Days #12 tablet 09/13/20 Bisoprolol/Hydrochlorothiazide [Bisoprolol-Hctz 2.5-6.25 mg Tb] 1 tab PO DAILY 09/15/20 Levothyroxine Sodium [Levothyroxine] 150 mg PO DAILY 09/15/20 Ondansetron [Zofran Odt 4 mg Tablet] 8 mg PO Q4HP PRN 09/15/20 Simvastatin 20 mg PO DAILY 09/15/20 Allergies/Adverse Reactions: metformin Adverse Reaction (Verified 09/16/20 06:31) Review of Systems Constitutional: ABSENT: chills, fever(s), headache(s), weight gain, weight loss Eyes: ABSENT: visual disturbances Ears: ABSENT: hearing changes Cardiovascular: PRESENT: as per HPI, dyspnea on exertion. ABSENT: edema, orthropnea, palpitations Respiratory: PRESENT: as per HPI Gastrointestinal: ABSENT: abdominal pain, constipation, diarrhea, hematemesis, hematochezia, nausea, vomiting Genitourinary: ABSENT: hematuria Musculoskeletal: ABSENT: joint swelling Integumentary: ABSENT: rash, wounds Neurological: ABSENT: abnormal gait, abnormal speech, confusion, dizziness, focal weakness, syncope Psychiatric: ABSENT: anxiety, depression, homidical ideation, suicidal ideation Endocrine: ABSENT: cold intolerance, heat intolerance, polydipsia, polyuria Hematologic/Lymphatic: ABSENT: easy bleeding, easy bruising Physical Exam Vital Signs: Temp Pulse Resp BP Pulse Ox 97.7 F 17 104/55 L 97 09/15/20 23:32 09/16/20 02:00 09/15/20 23:32 09/15/20 23:32 Intake & Output 09/14/20 09/15/20 09/16/20 06:59 06:59 06:59 Intake Total 50 Balance 50 Weight 86.183 kg Additional comments: GENERAL APPEARANCE: Alert and oriented x3, in no acute distress HEENT: Normocephalic and atraumatic. No scleral icterus. Moist oral mucosa NECK: Supple. No lymphadenopathy or tenderness. No JVD CHEST: Symmetric. Nontender to palpation. LUNGS: Clear with good air entry bilaterally. No wheezing or crackles HEART: Regular rate and rhythm with normal S1 and S2. No murmurs, gallops, or ru bs. ABDOMEN: soft, active bowel sounds, no direct or rebound tenderness. No organomegaly detected. EXTREMITIES: No cyanosis, clubbing, or edema. MUSCULOSKELETAL: No deformity, atrophy or swelling noted PSYCHIATRIC: Recent and remote memory is intact. Appropriate mood and affect. SKIN: Warm, dry, and well perfused. No lesions or rashes are noted. NEUROLOGIC: No focal sensory or motor deficits are noted. Results Laboratory Results: 09/15/20 17:56 09/15/20 17:56 09/15/20 09/15/20 17:56 17:56 WBC 20.7 H RBC 4.44 Hgb 11.4 L Hct 35.0 L MCV 79 L MCH 25.7 L MCHC 32.5 RDW 15.3 H Plt Count 411 Seg Neutrophils % Not Reportable Sodium 125.5 L Potassium 5.1 H Chloride 95 L Carbon Dioxide 26 Anion Gap 5 BUN 35 H Creatinine 1.53 H Est GFR ( Amer) 40 L Glucose 143 H Calcium 8.1 L Total Bilirubin 0.6 AST 35 Alkaline Phosphatase 75 Total Protein 5.2 L Albumin 2.7 L 09/15/20 17:56 Troponin I 0.440 Impressions: Chest/Abdomen CTA 09/15/20 17:18 IMPRESSION: Extensive bilateral pulmonary emboli with evidence of right heart strain. Head CT 09/15/20 19:02 IMPRESSION: Small area of heterogeneity in the right parietal cortical/subcortical region. Further evaluation with contrast enhanced MRI is recommended. Given presence of hyperdensity, a subtle hemorrhagic component is not excluded. Head MRI 09/15/20 21:48 IMPRESSION: 1. Increased signal intensity present at the level of the parietal lobe suspected secondary to sequela of subacute versus chronic infarction with associated gliosis, cortical laminar necrosis and sequela of petechial hemorrhage at this site. Please correlate with patient neurological findings and consider short-term interval follow-up for stability. No clearly acute hemorrhage is identified. Assessment and Plan - Diagnosis (1) Pulmonary embolism, bilateral Is this a current diagnosis for this admission?: Yes Plan: Patient presents with 4 days duration of shortness of breath At increased risk for hypercoagulable state due to possible malignant abdominal mass CTA of the chest showed extensive bilateral PE in distal main right and main left pulmonary arteries extending to the lobar, segmental and subsegmental arteries Head CT obtained at the ED without contrast was suspicious for right parietal hyper density concerning for hemorrhage in this cortical region MRI of the head done subsequently was significant for subacute versus chronic infarction but no acute hemorrhage was identified Ordered the EKG and echocardiogram to assess for signs of right heart strain Currently patient is hemodynamically stable with systolic blood pressure ranging in the low one hundreds Started on therapeutic Lovenox at the ED and she was also given a dose of apixaban Continue therapeutic Lovenox with the plan to switch to apixaban on discharge We will continue gentle hydration Follow-up with heme-onc recommendations Closely monitor blood pressure and dietary parameters (2) Acute kidney injury Is this a current diagnosis for this admission?: Yes Plan: BUN/creatinine was 35/1.53 from a baseline Cr of 1.122 days back Likely prerenal from poor oral intake versus IV contrast induced nephropathy Continue IV hydration Monitor BMP, avoid nephrotoxic's, renally dose medications. (3) Hyponatremia Is this a current diagnosis for this admission?: Yes Plan: Likely hypovolemic hyponatremia due to poor oral intake Sodium level was 125 on this presentation Obtain urine sodium, urine osmolality and osmolality Continue gentle hydration to avoid overcorrection (4) Elevated troponin Is this a current diagnosis for this admission?: Yes Plan: Likely due to right heart strain from extensive PE EKG showed no significant ST-T wave changes Trend cardiac enzymes Continue telemetry monitoring Continue aspirin and statin (5) Hyperkalemia Is this a current diagnosis for this admission?: Yes Plan: Potassium level was mildly elevated at 5.1 Likely due to acute kidney injury Currently is being hydrated Continue telemetry monitoring Continue monitoring BMP (6) Abdominal mass Qualifiers: Abdominal location: unspecified location Qualified Code(s): R19.00 - Intra- abdominal and pelvic swelling, mass and lump, unspecified site Is this a current diagnosis for this admission?: Yes Plan: CT abdomen showed multiple masses in the central and left upper abdomen area with moderate ascites and diffuse stomach wall thickening with a month along the lesser curvature area on 09/13 Lesions are suspicious for metastatic disease Patient is currently being followed by heme-onc (7) Ascites, malignant Is this a current diagnosis for this admission?: Yes Plan: Status post large-volume paracentesis with removal of 4750 mL fluid this morning Ascites fluid analysis was not found on chart Patient has abdominal pain and leukocytosis Currently on ceftriaxone Follow-up with blood culture (8) UTI (urinary tract infection) Qualifiers: Urinary tract infection type: acute cystitis Hematuria presence: without hematuria Qualified Code(s): N30.00 - Acute cystitis without hematuria Is this a current diagnosis for this admission?: Yes Plan: Urine analysis on 09/13 was significant for large leukocyte esterase with multiple WBCs Was being treated with cefdinir as outpatient Patient denies urinary symptoms at this point Currently on IV ceftriaxone Follow-up with urine culture and sensitivity (9) Hypertension Is this a current diagnosis for this admission?: Yes Plan: Currently patient has soft blood pressure Hold antihypertensive for now Closely monitor vital signs - Time Time Spent with patient: 35 or more minutes Total Critical Time (Minutes): 50 Medications reviewed and adjusted accordingly: Yes Anticipated Discharge Disposition: Home, Self Care Anticipated Discharge Timeframe: within 72 hours - Inpatient Certification Based on my medical assessment, after consideration of the patient's comorbidities, presenting symptoms, or acuity I expect that the services needed warrant INPATIENT care.: Yes I certify that my determination is in accordance with my understanding of Medicare's requirements for reasonable and necessary INPATIENT services [42 CFR 412.3e].: Yes Medical Necessity: Significant Comorbidiites Make Outpatient Treatment Too Risky, Need Close Monitoring Due to Risk of Patient Decompensation, Need For IV Fluids, Need For Continuous Telemetry Monitoring, Need for IV Antibiotics, Risk of Complication if Not Cared For in Hospital Post Hospital Care: D/C or Transfer Summary
[2020-09-16 06:36] LABS: HEMATOCRIT 33.7 % (36.0-47.0); HEMOGLOBIN 11.1 g/dL (12.0-15.5); MEAN CORPUSCULAR HEMOGLOBIN 25.8 pg (27.0-33.4); MEAN CORPUSCULAR VOLUME 78 fl (80-97); PLATELET COUNT 356 10^3/uL (150-450); RED BLOOD COUNT 4.29 10^6/uL (3.72-5.28); RED CELL DISTRIBUTION WIDTH 15.6 % (11.5-14.0)
[2020-09-16 06:53] LABS: ABSOLUTE LYMPHOCYTES# (MANUAL) 0.2 10^3/uL (0.5-4.7); ABSOLUTE MONOCYTES # (MANUAL) 0.9 10^3/uL (0.1-1.4); BASOPHILS % (MANUAL) 0 % (0-2); EOSINOPHILS % (MANUAL) 3 % (0-6); LYMPHOCYTES % (MANUAL) 1 % (13-45); MONOCYTES % (MANUAL) 4 % (3-13); SEGMENTED NEUTROPHILS % (MAN) 92 % (42-78); TOTAL CELLS COUNTED 100
[2020-09-16 06:54] LABS: ANION GAP 7 (5-19); BLOOD UREA NITROGEN 37 mg/dL (7-20); CALCIUM 8.4 mg/dL (8.4-10.2); CARBON DIOXIDE 23 mmol/L (22-30); CHLORIDE 95 mmol/L (98-107); GLUCOSE 145 mg/dL (75-110)
[2020-09-16 06:57] LABS: ANISOCYTOSIS SLIGHT; BURR CELLS 2+; OVALOCYTES 1+; POIKILOCYTOSIS 1+; SCHISTOCYTES SLIGHT; TEAR DROP CELLS SLIGHT; TOXIC GRANULATION 1+
[2020-09-16 06:58] LABS: PLATELET COMMENT ADEQUATE
[2020-09-16] MEDS ORDERED: NORMAL SALINE 1000 ML 500 ML IV ONE (08:05)
--- NOTE | 2020-09-16 08:48 | PDOC CONSULTATION ---
Consultation Consult Date: 09/16/20 Attending physician:: PRASHANT DENIS Provider Consulted: BENNY ENNIS Consult reason:: Patient with what appears to be malignant ascites, omental caking and probable GI malignancy here with large PE and possible cerebral infarct History of Present Illness Admission Date/PCP: 09/16/20 01:31 IWONA WHITFIELD MD Patient complains of: Shortness of breath, dyspnea History of Present Illness: NHAN BLANTON is a 75 year old female who with just recent diagnosis of what appears to be some sort of metastatic disease. She presented just 2 days to the ED where she was found to have a 1 week history of increasing abdominal girth, nausea and vomiting, ultimately CT of the abdomen pelvis with contrast indicated possible gastric lesions, gastric adenopathy, omental caking and ascites. Overall picture seemed possible for some sort of a metastatic GI malignancy, gastric would be most likely. She had paracentesis done yesterday and had some shortness of breath and chest discomfort thereafter, presented to the ER and also had some confusion, therefore had CTA of the chest which indicated large bilateral PE, and CT of the head was concerning for some sort of hemorrhage. Ultimately, MRI confirmed that it was a small infarct rather than hemorrhage. She feels better today. Clinically she has been stable. I have called pathology to ensure that the ascites fluid is being analyzed for cytology. Past Medical History Cardiac Medical History: Reports: Hyperlipidema, Hypertension Denies: Coronary Artery Disease, Myocardial Infarction Pulmonary Medical History: Denies: Asthma, Bronchitis, Chronic Obstructive Pulmonary Disease (COPD), Pneumonia Neurological Medical History: Denies: Seizures Musculoskeltal Medical History: Denies: Arthritis Psychiatric Medical History: Denies: Depression Hematology: Denies: Anemia Past Surgical History Past Surgical History: Reports: Section, Hysterectomy Social History Information Source: Patient Lives with: Family Smoking Status: Never Smoker Electronic Cigarette use?: No Hx Recreational Drug Use: No Drugs: None - Advance Directive Resuscitation Status: Full Code Family History Family History: Reviewed & Not Pertinent Parental Family History Reviewed: Yes Children Family History Reviewed: Yes Sibling(s) Family History Reviewed.: Yes Medication/Allergy Home Medications: Cefdinir 300 mg PO BID 7 Days #14 capsule 09/13/20 Hydrocodone/Acetaminophen [Warba 5-325 mg Tablet] 1 tab PO Q6 PRN 3 Days #12 tablet 09/13/20 Bisoprolol/Hydrochlorothiazide [Bisoprolol-Hctz 2.5-6.25 mg Tb] 1 tab PO DAILY 09/15/20 Levothyroxine Sodium [Levothyroxine] 150 mg PO DAILY 09/15/20 Ondansetron [Zofran Odt 4 mg Tablet] 8 mg PO Q4HP PRN 09/15/20 Simvastatin 20 mg PO DAILY 09/15/20 Allergies/Adverse Reactions: metformin Adverse Reaction (Verified 09/16/20 06:31) Review of Systems Constitutional: ABSENT: chills, fever(s), headache(s), weight gain, weight loss Eyes: ABSENT: visual disturbances Ears: ABSENT: hearing changes Cardiovascular: ABSENT: chest pain, dyspnea on exertion, edema, orthropnea, palpitations Respiratory: ABSENT: cough, hemoptysis Gastrointestinal: ABSENT: abdominal pain, constipation, diarrhea, hematemesis, hematochezia, nausea, vomiting Genitourinary: ABSENT: dysuria, hematuria Musculoskeletal: ABSENT: joint swelling Integumentary: ABSENT: rash, wounds Neurological: ABSENT: abnormal gait, abnormal speech, confusion, dizziness, focal weakness, syncope Psychiatric: ABSENT: anxiety, depression, homidical ideation, suicidal ideation Endocrine: ABSENT: cold intolerance, heat intolerance, polydipsia, polyuria Hematologic/Lymphatic: ABSENT: easy bleeding, easy bruising Physical Exam Vital Signs: Temp Pulse Resp BP Pulse Ox 97.3 F 97 18 82/58 L 96 09/16/20 08:37 09/16/20 07:00 09/16/20 07:56 09/16/20 07:56 09/16/20 06:20 Intake & Output 09/15/20 09/16/20 09/17/20 06:59 06:59 06:59 Intake Total 100 644 Balance 100 644 Weight 86.183 kg General appearance: PRESENT: no acute distress, well-developed, well-nourished Head exam: PRESENT: atraumatic, normocephalic Eye exam: PRESENT: conjunctiva pink, EOMI, PERRLA. ABSENT: scleral icterus Ear exam: PRESENT: normal external ear exam Mouth exam: PRESENT: moist, tongue midline Neck exam: ABSENT: carotid bruit, JVD, lymphadenopathy, thyromegaly Respiratory exam: PRESENT: clear to auscultation xander. ABSENT: rales, rhonchi, wheezes Cardiovascular exam: PRESENT: RRR. ABSENT: diastolic murmur, rubs, systolic murmur Pulses: PRESENT: normal dorsalis pedis pul Vascular exam: PRESENT: normal capillary refill GI/Abdominal exam: PRESENT: normal bowel sounds, soft. ABSENT: distended, guarding, mass, organolmegaly, rebound, tenderness Rectal exam: PRESENT: deferred Extremities exam: PRESENT: full ROM. ABSENT: calf tenderness, clubbing, pedal edema Neurological exam: PRESENT: alert, awake, oriented to person, oriented to place, oriented to time, oriented to situation, CN II-XII grossly intact. ABSENT: motor sensory deficit Psychiatric exam: PRESENT: appropriate affect, normal mood. ABSENT: homicidal ideation, suicidal ideation Skin exam: PRESENT: dry, intact, warm. ABSENT: cyanosis, rash Results Laboratory Results: 09/16/20 06:16 09/16/20 06:16 09/15/20 09/15/20 09/16/20 17:56 17:56 06:16 WBC 20.7 H 23.0 H RBC 4.44 4.29 Hgb 11.4 L 11.1 L Hct 35.0 L 33.7 L MCV 79 L 78 L MCH 25.7 L 25.8 L MCHC 32.5 33.0 RDW 15.3 H 15.6 H Plt Count 411 356 Seg Neutrophils % Not Reportable Not Reportable Sodium 125.5 L Potassium 5.1 H Chloride 95 L Carbon Dioxide 26 Anion Gap 5 BUN 35 H Creatinine 1.53 H Est GFR ( Amer) 40 L Glucose 143 H Calcium 8.1 L Total Bilirubin 0.6 AST 35 Alkaline Phosphatase 75 Total Protein 5.2 L Albumin 2.7 L 09/16/20 06:16 WBC RBC Hgb Hct MCV MCH MCHC RDW Plt Count Seg Neutrophils % Sodium 125.3 L Potassium 5.0 Chloride 95 L Carbon Dioxide 23 Anion Gap 7 BUN 37 H Creatinine 1.30 H Est GFR ( Amer) 48 L Glucose 145 H Calcium 8.4 Total Bilirubin AST Alkaline Phosphatase Total Protein Albumin 09/15/20 09/16/20 09/16/20 17:56 02:51 06:16 Troponin I 0.440 0.381 0.258 Impressions: Chest/Abdomen CTA 09/15/20 17:18 IMPRESSION: Extensive bilateral pulmonary emboli with evidence of right heart strain. Head CT 09/15/20 19:02 IMPRESSION: Small area of heterogeneity in the right parietal cortical/subcortical region. Further evaluation with contrast enhanced MRI is recommended. Given presence of hyperdensity, a subtle hemorrhagic component is not excluded. Head MRI 09/15/20 21:48 IMPRESSION: 1. Increased signal intensity present at the level of the parietal lobe suspected secondary to sequela of subacute versus chronic infarction with associated gliosis, cortical laminar necrosis and sequela of petechial hemorrhage at this site. Please correlate with patient neurological findings and consider short-term interval follow-up for stability. No clearly acute hemorrhage is identified. Status: Image reviewed by me Assessment & Plan - Diagnosis (1) Pulmonary embolism, bilateral Is this a current diagnosis for this admission?: Yes Plan: Bilateral PE, continue with Lovenox for now. Hospitalist team following as well. (2) Abdominal mass Qualifiers: Abdominal location: epigastric Qualified Code(s): R19.06 - Epigastric swelling, mass or lump Is this a current diagnosis for this admission?: Yes Plan: Overall picture concerning for some sort of gastric or GI malignancy, ascites cytology pending - Time Time Spent: Greater than 70 Minutes
--- NOTE | 2020-09-16 08:58 | EKG REPORT ---
SEVERITY:- ABNORMAL ECG - SINUS RHYTHM PROBABLE INFERIOR INFARCT, AGE INDETERMINATE : Confirmed by: Ayla Landers MD 16-Sep-2020 08:57:41
--- NOTE | 2020-09-16 08:58 | EKG REPORT ---
SEVERITY:- NORMAL ECG - SINUS RHYTHM : Confirmed by: Ayla Landers MD 16-Sep-2020 08:57:13
[2020-09-16] MEDS ORDERED: ALBUMIN HUMAN 500 ML IV ONE (09:00)
[2020-09-16] MEDS ORDERED: ENOXAPARIN SODIUM INJ 100 MG/1 ML DISP.SYRIN SUBCUT SCH (10:00)
[2020-09-16] MEDS: FAMOTIDINE 20 MG TABLET PO SCH ×2 (10:17→22:16)
--- NOTE | 2020-09-16 10:51 | RADIOLOGY REPORT (SQ) ---
EXAM DESCRIPTION: VENOUS BILATERAL LOWER IMAGES COMPLETED DATE/TIME: 09/16/2020 10:32 am REASON FOR STUDY: submassive pe. eval for dvt COMPARISON: 09/15/2020 CT TECHNIQUE: Dynamic and static gatica scale and color images acquired of both lower extremity venous sy stems. Selected spectral images acquired with additional compression and augmentation maneuvers. Imag es stored on PACS. LIMITATIONS: None. FINDINGS: RIGHT LEG COMMON FEMORAL AND FEMORAL: Normal phasicity, compression and augmentation. No visualized echogenic m aterial on gatica scale. No defects on color images. POPLITEAL: Normal compression and augmentation. No visualized echogenic material on gatica scale. No de fects on color images. CALF VESSELS: Decreased compressibility with intraluminal defect on grayscale evaluation involving th e 1 of the 2 posterior tibial veins and both peroneal veins compatible with thrombus. GSV AND SSV: Decreased compressibility and intraluminal defect on grayscale evaluation within the SS V compatible with thrombus. GSV demonstrates normal compression. No visualized echogenic material on gatica scale. No defects on color images. ANY DEEP VENOUS INSUFFICIENCY: Not evaluated. ANY EVIDENCE OF POPLITEAL CYST: No. OTHER: No other significant finding. LEFT LEG COMMON FEMORAL AND FEMORAL: Normal phasicity, compression and augmentation. No visualized echogenic m aterial on gatica scale. No defects on color images. POPLITEAL: Normal compression and augmentation. No visualized echogenic material on gatica scale. No de fects on color images. CALF VESSELS: Decreased compressibility and intraluminal defect noted within the peroneal veins and 1 of the 2 posterior tibial veins compatible with thrombus. GSV AND SSV: Normal compression. No visualized echogenic material on gatica scale. No defects on color images. ANY DEEP VENOUS INSUFFICIENCY: Not evaluated. ANY EVIDENCE POPLITEAL CYST: No. OTHER: No other significant finding. IMPRESSION: 1. DVT within the bilateral peroneal and posterior tibial veins. 2. SVT within the right small saphenous vein. TECHNICAL DOCUMENTATION: JOB ID: [id number] [employer]- All Rights Reserved Reading location - IP/workstation name: [email or web address]
--- NOTE | 2020-09-16 11:10 | XCELERA REPORT ---
[address] [address] Transthoracic Echocardiogram Report Name: NHAN BLANTON Age: 75 yrs Gender: Female : 1945 Patient Status: Inpatient Patient Location: [address] [place] [address] Study Date: 09/16/2020 08:33 AM History: PE Height: 69 in Weight: 190 lb BSA: 2.0 m2 Procedure: A complete two-dimensional transthoracic echocardiogram was performed (2D, M-mode, spectral and color flow Doppler). The study was technically difficult with many images being suboptimal in quality. Reason For Study: bilateral PE, to assess for right heart strain Previous Evaluation: No previous studies were available. History: PE. Ordering Physician: PRASHANT DENIS Performed By: Macrina Martinez Interpretation Summary The left ventricle is hyperdynamic. The Ejection Fraction estimate is >70% The right ventricle is mildly dilated. The right ventricular systolic function is mild to moderately reduced. There is a trace amount of mitral regurgitation There is no aortic valve stenosis There is a mild amount of tricuspid regurgitation There is no pericardial effusion. MMode/2D Measurements & Calculations RVDd: 3.6 cm LVIDd: 4.1 cm FS: 31.4 % Ao root diam: 3.2 cm IVSd: 1.4 cm LVIDs: 2.8 cm EDV(Teich): Ao root area: LVPWd: 1.4 cm 76.3 ml 8.0 cm2 ESV(Teich): LA dimension: 3.1 cm 30.7 ml EF(Teich): 59.8 % LVLd ap4: 8.3 cm SV(MOD-sp4): EDV(MOD-sp4): 59.0 ml 76.0 ml LVLs ap4: 6.3 cm ESV(MOD-sp4): 17.0 ml EF(MOD-sp4): 77.6 % Doppler Measurements & Calculations MV E max aleksey: MV P1/2t max aleksey: Ao V2 max: LV V1 max P.2 cm/sec 58.4 cm/sec 220.2 cm/sec 23.5 mmHg MV A max aleksey: MV P1/2t: 47.0 msec Ao max PG: LV V1 mean P.1 cm/sec MVA(P1/2t): 4.7 cm2 19.4 mmHg 9.2 mmHg MV E/A: 0.57 MV dec slope: LV V1 max: 363.6 cm/sec2 242.5 cm/sec MV dec time: 0.16 sec LV V1 mean: 137.6 cm/sec LV V1 VTI: 37.3 cm PA V2 max: TR max aleksey: MV P1/2t-pr_phl: 82.5 cm/sec 265.0 cm/sec 47.0 msec PA max P.7 mmHgTR max P.1 mmHg Left Ventricle The left ventricular cavity is small. There is severe concentric left ventricular hypertrophy. The Ejection Fraction estimate is >70%. The left ventricle is hyperdynamic. No regional wall motion abnormalities noted. Right Ventricle The right ventricle is mildly dilated. The right ventricular systolic function is mild to moderately reduced. Atria The right atrium is normal. The left atrial size is normal. The interatrial septum is intact with no evidence for an atrial septal defect. There is no Doppler evidence for an interatrial shunt. Mitral Valve There is mild mitral leaflet calcification. There is no evidence of mitral valve prolapse. There is no mitral valve stenosis. There is a trace amount of mitral regurgitation. Aortic Valve The aortic valve is sclerotic, but shows no functional abnormality. The aortic valve opens well. The aortic valve is grossly normal. The aortic valve is trileaflet. There is no aortic valve stenosis. Doppler on aortic valve is suboptimal. Tricuspid Valve The tricuspid valve is normal in structure and function. There is no tricuspid stenosis. There is a mild amount of tricuspid regurgitation. Tricuspid regurgitation jet envelope not well defined to measure RV systolic pressure accurately. Pulmonic Valve The pulmonic valve is not well visualized. There is no pulmonic valvular stenosis. There is a trace amount of pulmonic regurgitation. Great Vessels The aortic root is normal size. Effusions There is no pericardial effusion. : PRASHANT DENIS Anil
[2020-09-16] MEDS ORDERED: HEPARIN SOD (PORCINE) 1,000 UNIT/ML 10 ML VIAL IV ONE (11:26)
--- NOTE | 2020-09-16 12:52 | PDOC CONSULTATION ---
Consultation Consult Date: 09/16/20 Attending physician:: JO BONDS Provider Consulted: FEI PELAYO Consult reason:: Hypotension; requested transfer to ICU History of Present Illness Admission Date/PCP: 09/16/20 01:31 IWONA WHITFIELD MD Patient complains of: Hypotension History of Present Illness: NHAN BLANTON is a 75 year old female Past Medical History Cardiac Medical History: Reports: Hyperlipidema, Hypertension Denies: Coronary Artery Disease, Myocardial Infarction Pulmonary Medical History: Denies: Asthma, Bronchitis, Chronic Obstructive Pulmonary Disease (COPD), Pneumonia Neurological Medical History: Denies: Seizures Musculoskeltal Medical History: Denies: Arthritis Psychiatric Medical History: Denies: Depression Hematology: Denies: Anemia Past Surgical History Past Surgical History: Reports: Section, Hysterectomy Social History Lives with: Family Smoking Status: Never Smoker Electronic Cigarette use?: No Hx Recreational Drug Use: No Drugs: None - Advance Directive Resuscitation Status: Full Code Family History Family History: Reviewed & Not Pertinent Parental Family History Reviewed: No Children Family History Reviewed: No Sibling(s) Family History Reviewed.: No Medication/Allergy Home Medications: Cefdinir 300 mg PO BID 7 Days #14 capsule 09/13/20 Hydrocodone/Acetaminophen [Jonancy 5-325 mg Tablet] 1 tab PO Q6 PRN 3 Days #12 tablet 09/13/20 Bisoprolol/Hydrochlorothiazide [Bisoprolol-Hctz 2.5-6.25 mg Tb] 1 tab PO DAILY 09/15/20 Levothyroxine Sodium [Levothyroxine] 150 mg PO DAILY 09/15/20 Aspirin [Ecotrin 81 mg EC Tablet] 81 mg PO DAILY 09/16/20 Atorvastatin Calcium [Lipitor 20 mg Tablet] 20 mg PO QHS 09/16/20 Cholecalciferol (Vitamin D3) [Vitamin D3 1000 Unit Tablet] 1,000 unit PO DAILY 09/16/20 Loratadine/Pseudoephedrine [Claritin-D 24 Hour Tablet] 1 each PO DAILY 09/16/20 Multivitamin [Tab-A-Zachariah (Multiple Vitamin) Tablet] 1 tab PO DAILY 09/16/20 Ondansetron HCl [Zofran 8 mg Tablet] 8 mg PO Q4HP PRN 09/16/20 Oxycodone HCl [Oxy-Ir 5 mg Tablet] 5 mg PO QID 09/16/20 Allergies/Adverse Reactions: metformin Adverse Reaction (Verified 09/16/20 06:31) Review of Systems Constitutional: PRESENT: weight gain. ABSENT: chills, fever(s), headache(s), weight loss Cardiovascular: PRESENT: dyspnea on exertion, edema, orthropnea. ABSENT: chest pain, palpitations Respiratory: PRESENT: dyspnea. ABSENT: cough, hemoptysis Gastrointestinal: PRESENT: abdominal pain, bloating. ABSENT: coffee ground emesis, constipation, diarrhea, dysphagia, nausea, vomiting Genitourinary: ABSENT: difficulty urinating, dysuria, hematuria, nocturia Musculoskeletal: ABSENT: joint swelling Integumentary: ABSENT: rash, wounds Neurological: PRESENT: paresthesias, tingling. ABSENT: abnormal gait, abnormal speech, confusion, dizziness, focal weakness, syncope Psychiatric: ABSENT: anxiety, depression, homidical ideation, suicidal ideation Endocrine: ABSENT: cold intolerance, heat intolerance, menstrual abnormalities, polydipsia, polyuria Hematologic/Lymphatic: ABSENT: easy bleeding, easy bruising, lymphadenopathy Physical Exam Vital Signs: Temp Pulse Resp BP Pulse Ox 97.3 F 97 18 82/58 L 91 L 09/16/20 08:37 09/16/20 07:00 09/16/20 07:56 09/16/20 07:56 09/16/20 09:15 Intake & Output 09/15/20 09/16/20 09/17/20 06:59 06:59 06:59 Intake Total 100 644 Balance 100 644 Weight 86.183 kg General appearance: PRESENT: no acute distress, well-developed, well-nourished Head exam: PRESENT: atraumatic, normocephalic Eye exam: PRESENT: conjunctiva pink, EOMI, PERRLA. ABSENT: scleral icterus Neck exam: PRESENT: full ROM. ABSENT: carotid bruit, JVD, lymphadenopathy, thyromegaly Respiratory exam: PRESENT: clear to auscultation xander, crackles - Bases, symmetrical. ABSENT: rales, rhonchi, tachypnea Cardiovascular exam: PRESENT: RRR. ABSENT: diastolic murmur, rubs, systolic murmur Pulses: PRESENT: normal dorsalis pedis pul, +2 pedal pulses bilateral Vascular exam: PRESENT: normal capillary refill GI/Abdominal exam: PRESENT: ascites, distended, normal bowel sounds, soft. ABSENT: guarding, mass, organolmegaly, rebound, tenderness Extremities exam: PRESENT: pedal edema. ABSENT: calf tenderness, joint swelling Musculoskeletal exam: PRESENT: normal inspection. ABSENT: deformity Neurological exam: PRESENT: alert, awake, oriented to person, oriented to place, oriented to time, oriented to situation, CN II-XII grossly intact. ABSENT: motor sensory deficit Psychiatric exam: PRESENT: appropriate affect. ABSENT: agitated, anxious Skin exam: PRESENT: dry, intact, warm. ABSENT: cyanosis, rash Results Laboratory Results: 09/16/20 06:16 09/16/20 06:16 09/15/20 09/15/20 09/16/20 17:56 17:56 06:16 WBC 20.7 H 23.0 H RBC 4.44 4.29 Hgb 11.4 L 11.1 L Hct 35.0 L 33.7 L MCV 79 L 78 L MCH 25.7 L 25.8 L MCHC 32.5 33.0 RDW 15.3 H 15.6 H Plt Count 411 356 Seg Neutrophils % Not Reportable Not Reportable Sodium 125.5 L Potassium 5.1 H Chloride 95 L Carbon Dioxide 26 Anion Gap 5 BUN 35 H Creatinine 1.53 H Est GFR ( Amer) 40 L Glucose 143 H Calcium 8.1 L Total Bilirubin 0.6 AST 35 Alkaline Phosphatase 75 Total Protein 5.2 L Albumin 2.7 L 09/16/20 06:16 WBC RBC Hgb Hct MCV MCH MCHC RDW Plt Count Seg Neutrophils % Sodium 125.3 L Potassium 5.0 Chloride 95 L Carbon Dioxide 23 Anion Gap 7 BUN 37 H Creatinine 1.30 H Est GFR ( Amer) 48 L Glucose 145 H Calcium 8.4 Total Bilirubin AST Alkaline Phosphatase Total Protein Albumin 09/15/20 09/16/20 09/16/20 17:56 02:51 06:16 Troponin I 0.440 0.381 0.258 Impressions: Chest/Abdomen CTA 09/15/20 17:18 IMPRESSION: Extensive bilateral pulmonary emboli with evidence of right heart strain. Head CT 09/15/20 19:02 IMPRESSION: Small area of heterogeneity in the right parietal cortical/subcortical region. Further evaluation with contrast enhanced MRI is recommended. Given presence of hyperdensity, a subtle hemorrhagic component is not excluded. Head MRI 09/15/20 21:48 IMPRESSION: 1. Increased signal intensity present at the level of the parietal lobe suspected secondary to sequela of subacute versus chronic infarction with associated gliosis, cortical laminar necrosis and sequela of petechial hemorrhage at this site. Please correlate with patient neurological findings and consider short-term interval follow-up for stability. No clearly acute hemorrhage is identified. Venous Doppler Study 09/16/20 00:00 IMPRESSION: 1. DVT within the bilateral peroneal and posterior tibial veins. 2. SVT within the right small saphenous vein. Assessment & Plan - Diagnosis (1) Hypotension Is this a current diagnosis for this admission?: Yes (2) Abdominal mass Qualifiers: Abdominal location: epigastric Qualified Code(s): R19.06 - Epigastric swelling, mass or lump Is this a current diagnosis for this admission?: Yes (3) Ascites, malignant Is this a current diagnosis for this admission?: Yes (4) Pulmonary embolism, bilateral Is this a current diagnosis for this admission?: Yes (5) UTI (urinary tract infection) Qualifiers: Urinary tract infection type: acute cystitis Hematuria presence: without hematuria Qualified Code(s): N30.00 - Acute cystitis without hematuria Is this a current diagnosis for this admission?: Yes - Time Time Spent: 30 to 50 Minutes - Plan Summary Plan Summary: * The patient has a documented blood pressure of 82/58. At this time, the patient is already receiving 50 g albumin infusion (25 g of 25% and 25 g of 5%). In light of her recent large volume paracentesis, which was performed without pretreatment with albumin infusion, this hypotension may be simply a result of fluid shifts induced by a large volume paracentesis. However, she does have other acute issues, including bilateral pulmonary emboli (albeit she is only requiring supplemental oxygen at 2 LPM) and urinary tract infection (for which she has already started on antibiotic therapy). * I understand Dr. Bonds's concern for the potential hemodynamic deterioration of this patient. However, as all of the treatments that I would choose to administer at this time are already underway, I believe it is appropriate to continue with the current course of treatment and continue to monitor her blood pressure. Obviously, failure for her to favorably respond to ongoing treatment would warrant more aggressive measures at blood pressure correction and would mandate transfer to ICU. * I have communicated this position to Dr. Bonds.
[2020-09-16 13:12] LABS: ABSOLUTE BASOPHILS # (AUTO) 0.1 10^3/uL (0.0-0.2); ABSOLUTE EOSINOPHILS # (AUTO) 0.3 10^3/uL (0.0-0.6); ABSOLUTE LYMPHOCYTES (AUTO) 1.2 10^3/uL (0.5-4.7); ABSOLUTE MONOCYTES (AUTO) 1.2 10^3/uL (0.1-1.4); ABSOLUTE NEUT (AUTO) 16.5 10^3/uL (1.7-8.2); BASOPHILS % (AUTO) 0.5 % (0-2); EOSINOPHILS % (AUTO) 1.4 % (0-6); HEMATOCRIT 29.9 % (36.0-47.0); HEMOGLOBIN 9.9 g/dL (12.0-15.5); LYMPHOCYTES % (AUTO) 6.1 % (13-45); MEAN CORPUSCULAR HEMOGLOBIN 25.9 pg (27.0-33.4); MEAN CORPUSCULAR VOLUME 79 fl (80-97); MONOCYTES % (AUTO) 6.3 % (3-13); PLATELET COUNT 352 10^3/uL (150-450); RED CELL DISTRIBUTION WIDTH 15.2 % (11.5-14.0); SEGMENTED NEUTROPHILS % (AUTO) 85.7 % (42-78); TOTAL CELLS COUNTED % (AUTO) 100 %; WHITE BLOOD COUNT 19.2 10^3/uL (4.0-10.5)
[2020-09-16 13:18] LABS: INTERNATIONAL RATION (INR) 1.31; PROTHROMBIN TIME 16.5 SEC (11.4-15.4)
[2020-09-16 13:19] LABS: PARTIAL THROMBOPLASTIN TIME 30.9 SEC (23.5-35.8)
[2020-09-16] MEDS: HEPARIN SODIUM,PORCINE/D5W 25,000 UNIT/250 ML RTUINJ IV PRN (14:57)
[2020-09-16] MEDS ORDERED: MEROPENEM 500 MG VIAL IV ONE (15:05)
[2020-09-16] MEDS ORDERED: HEPARIN SOD (PORCINE) 1,000 UNIT/ML 10 ML VIAL IV PRN (15:30)
[2020-09-16] MEDS: ALBUMIN HUMAN 12.5 GM/50 ML RTUINJ IV SCH ×2 (15:51→17:02)
[2020-09-16] MEDS ORDERED: MEROPENEM 1 GM in NORMAL SALINE 50 ML IV SCH (16:30)
[2020-09-16 16:37] LABS: BLOOD UREA NITROGEN 33 mg/dL (7-20); CALCIUM 7.7 mg/dL (8.4-10.2); CHLORIDE 96 mmol/L (98-107); GLUCOSE 155 mg/dL (75-110)
[2020-09-16 16:48] LABS: CARBON DIOXIDE 23 mmol/L (22-30); POTASSIUM 4.5 mmol/L (3.6-5.0)
[2020-09-16 16:51] LABS: ANION GAP 6 (5-19)
[2020-09-16 17:02] LABS: APPEARANCE,URINE SLIGHTLY-CLOUDY; BILIRUBIN,URINE NEGATIVE (NEGATIVE); COLOR,URINE AMBER; GLUCOSE, URINE 50 mg/dL (NEGATIVE); KETONES,URINE TRACE mg/dL (NEGATIVE); PROTEIN,URINE NEGATIVE (NEGATIVE); URINE SPECIFIC GRAVITY 1.039
--- NOTE | 2020-09-16 18:28 | Progress Note ---
Provider Note Provider Note: This morning, patient was notably hypotensive. She was noted to be in the 80s over 50s. Hypotension could be due to volume depletion following large volume paracentesis yesterday as no albumin was administered with the possibility of contribution from obstructive shock from PE burden. She however looked comfortable. She was hypoxic at 91% on 3 L nasal cannula this morning. I did discuss her current condition with her and her son who was at bedside. Contacted [facility] as well as [facility] for potential transfer. Patient was declined. The paste mixer liquid at [facility] reviewed the images with the CT surgeon over there and determined that patient was not a candidate for any advanced therapy for treatment of her submassive pulmonary embolism. She certainly does not qualify for TPA given her strokes but paste mixer liquid informed that she is not a candidate for thrombectomy or other advanced measures given her significant comorbidities and the location of her clots. We did discuss patient's old petechial hemorrhage findings in the brain and risk of rebleeding with anticoagulation but still patient was declined for transfer. I consulted Dr. Kim for transfer to our ICU for monitoring over the next 24-48hrs and Watch Assembly Inspector has evaluated patient and declines tranfer to ICU recommending continued therapy and monitoring in IMCU. I have discussed risk and benefits of anticoagulation with patient and she agreed to continue anticoagulation therapy. She is placed on a heparin drip. Have instructed her symptoms to watch out for. We will monitor PTTs closely. Currently BP has normalized and she is no longer hypotensive after receiving normal saline and 50 G of albumin.
[2020-09-16] MEDS ORDERED: MEROPENEM 1 GM VIAL IV SCH (22:00)
[2020-09-16] MEDS ORDERED: CEFTRIAXONE 1 GM/D5W RTU 1 GM/50 ML RTUPB IV SCH (22:00)
[2020-09-16 22:13] LABS: INTERNATIONAL RATION (INR) 1.33; PROTHROMBIN TIME 16.7 SEC (11.4-15.4)
[2020-09-16] MEDS: ATORVASTATIN CALCIUM 20 MG TABLET PO SCH (22:15)
[2020-09-17] MEDS: LEVOTHYROXINE SODIUM 0.15 MG TABLET PO SCH (05:30)
[2020-09-17] MEDS: HEPARIN SODIUM,PORCINE/D5W 25,000 UNIT/250 ML RTUINJ IV PRN ×2 (05:32→21:57)
[2020-09-17 08:52] LABS: HEMATOCRIT 32.3 % (36.0-47.0); HEMOGLOBIN 10.6 g/dL (12.0-15.5); MEAN CORPUSCULAR HEMOGLOBIN 25.6 pg (27.0-33.4); MEAN CORPUSCULAR HGB CONC 32.7 g/dL (32.0-36.0); MEAN CORPUSCULAR VOLUME 78 fl (80-97); PLATELET COUNT 396 10^3/uL (150-450); RED BLOOD COUNT 4.13 10^6/uL (3.72-5.28); RED CELL DISTRIBUTION WIDTH 15.5 % (11.5-14.0); WHITE BLOOD COUNT 20.7 10^3/uL (4.0-10.5)
[2020-09-17 08:55] LABS: ALBUMIN 2.8 g/dL (3.5-5.0); ALKALINE PHOSPHATASE 72 U/L (38-126); ANION GAP 7 (5-19); ASPARTATE AMINO TRANSFERASE 35 U/L (14-36); BILIRUBIN,DIRECT 0.2 mg/dL (0.0-0.4); BILIRUBIN,TOTAL 0.8 mg/dL (0.2-1.3); BLOOD UREA NITROGEN 26 mg/dL (7-20); CARBON DIOXIDE 23 mmol/L (22-30); CHLORIDE 97 mmol/L (98-107); GLUCOSE 131 mg/dL (75-110); POTASSIUM 4.4 mmol/L (3.6-5.0); TOTAL PROTEIN 5.1 g/dL (6.3-8.2)
[2020-09-17 09:09] LABS: ABSOLUTE LYMPHOCYTES# (MANUAL) 1.7 10^3/uL (0.5-4.7); BASOPHILS % (MANUAL) 1 % (0-2); EOSINOPHILS % (MANUAL) 3 % (0-6); LYMPHOCYTES % (MANUAL) 8 % (13-45); MONOCYTES % (MANUAL) 5 % (3-13); SEGMENTED NEUTROPHILS % (MAN) 83 % (42-78); TOTAL CELLS COUNTED 100
[2020-09-17 09:10] LABS: ANISOCYTOSIS SLIGHT; HYPOCHROMASIA SLIGHT; OVALOCYTES 1+; POLYCHROMASIA SLIGHT
[2020-09-17 09:11] LABS: BURR CELLS 2+; PLATELET COMMENT ADEQUATE
[2020-09-17] MEDS: CEFTRIAXONE 2 GM/D5W RTU 2 GM/50 ML RTUPB IV SCH (09:50)
[2020-09-17] MEDS: ASPIRIN 81 MG TABLET, ENT COATED PO SCH (09:51)
[2020-09-17] MEDS: MULTIVITAMIN TABLET PO SCH (09:51)
[2020-09-17] MEDS: CHOLECALCIFEROL (D3) 1,000 UNIT (25 MCG) TABLET PO SCH (09:51)
[2020-09-17] MEDS: FAMOTIDINE 20 MG TABLET PO SCH ×2 (09:51→21:57)
[2020-09-17] MEDS ORDERED: LACTULOSE SYRUP 20 GM/30 ML UDCUP PO ONE (10:00)
--- NOTE | 2020-09-17 11:07 | PDOC PROGRESS REPORT ---
Subjective Date:: 09/17/20 Subjective:: Today I had a long discussion with family at bedside about next steps of care, discussed that the PE came from the left lower extremity DVT that was found. Continue with Lovenox, probably will need ultimately Lovenox on discharge rather than something like Xarelto. Discussed that she will be in for at least another 48 hours to see how she does. Discussed with nursing to try and get her up in a chair today and ultimately tomorrow if she is feeling up to it to walk the nelson. Also will need oxygen weaning evaluation. Reason For Visit: ABDOMONAL MASS,PULMONARY EMBOLISM,BRAIN LESIONS, Physical Exam Vital Signs: Temp Pulse Resp BP Pulse Ox 97.8 F 92 18 108/61 94 09/17/20 07:33 09/17/20 07:33 09/17/20 07:33 09/17/20 07:33 09/17/20 04:39 Intake & Output 09/16/20 09/17/20 09/18/20 06:59 06:59 06:59 Intake Total 100 3271 Output Total 2000 Balance 100 1271 Weight 86.183 kg 92.8 kg General appearance: PRESENT: no acute distress, well-developed, well-nourished Head exam: PRESENT: atraumatic, normocephalic Eye exam: PRESENT: conjunctiva pink, EOMI, PERRLA. ABSENT: scleral icterus Ear exam: PRESENT: normal external ear exam Mouth exam: PRESENT: moist, tongue midline Neck exam: ABSENT: carotid bruit, JVD, lymphadenopathy, thyromegaly Respiratory exam: PRESENT: clear to auscultation xander. ABSENT: rales, rhonchi, wheezes Cardiovascular exam: PRESENT: RRR. ABSENT: diastolic murmur, rubs, systolic murmur Pulses: PRESENT: normal dorsalis pedis pul Vascular exam: PRESENT: normal capillary refill GI/Abdominal exam: PRESENT: normal bowel sounds, soft. ABSENT: distended, guarding, mass, organolmegaly, rebound, tenderness Rectal exam: PRESENT: deferred Extremities exam: PRESENT: full ROM. ABSENT: calf tenderness, clubbing, pedal edema Neurological exam: PRESENT: alert, awake, oriented to person, oriented to place, oriented to time, oriented to situation, CN II-XII grossly intact. ABSENT: motor sensory deficit Psychiatric exam: PRESENT: appropriate affect, normal mood. ABSENT: homicidal ideation, suicidal ideation Skin exam: PRESENT: dry, intact, warm. ABSENT: cyanosis, rash Results Laboratory Results: 09/17/20 05:19 09/17/20 05:19 09/16/20 09/16/20 09/16/20 12:59 14:00 15:49 WBC 19.2 H RBC 3.80 Hgb 9.9 L Hct 29.9 L MCV 79 L MCH 25.9 L MCHC 33.0 RDW 15.2 H Plt Count 352 Seg Neutrophils % 85.7 H Sodium 125.1 L Potassium 4.5 Chloride 96 L Carbon Dioxide 23 Anion Gap 6 BUN 33 H Creatinine 1.07 Est GFR ( Amer) > 60 Glucose 155 H Calcium 7.7 L Total Bilirubin AST Alkaline Phosphatase Total Protein Albumin Urine Color HANH Urine Appearance SLIGHTLY-CLOUDY Urine pH 5.0 Ur Specific [place] 1.039 Urine Protein NEGATIVE Urine Glucose (UA) 50 H Urine Ketones TRACE H Urine Blood NEGATIVE Urine RBC (Auto) 4 09/17/20 09/17/20 05:19 05:19 WBC 20.7 H RBC 4.13 Hgb 10.6 L Hct 32.3 L MCV 78 L MCH 25.6 L MCHC 32.7 RDW 15.5 H Plt Count 396 Seg Neutrophils % Not Reportable Sodium 126.5 L Potassium 4.4 Chloride 97 L Carbon Dioxide 23 Anion Gap 7 BUN 26 H Creatinine 0.89 Est GFR ( Amer) > 60 Glucose 131 H Calcium 8.0 L Total Bilirubin 0.8 AST 35 Alkaline Phosphatase 72 Total Protein 5.1 L Albumin 2.8 L Urine Color Urine Appearance Urine pH Ur Specific [place] Urine Protein Urine Glucose (UA) Urine Ketones Urine Blood Urine RBC (Auto) 09/15/20 09/16/20 09/16/20 17:56 02:51 06:16 Troponin I 0.440 0.381 0.258 Impressions: Chest/Abdomen CTA 09/15/20 17:18 IMPRESSION: Extensive bilateral pulmonary emboli with evidence of right heart strain. Head CT 09/15/20 19:02 IMPRESSION: Small area of heterogeneity in the right parietal cortical/subcortical region. Further evaluation with contrast enhanced MRI is recommended. Given presence of hyperdensity, a subtle hemorrhagic component is not excluded. Head MRI 09/15/20 21:48 IMPRESSION: 1. Increased signal intensity present at the level of the parietal lobe suspected secondary to sequela of subacute versus chronic infarction with associated gliosis, cortical laminar necrosis and sequela of petechial hemorrhage at this site. Please correlate with patient neurological findings and consider short-term interval follow-up for stability. No clearly acute hemorrhage is identified. Venous Doppler Study 09/16/20 00:00 IMPRESSION: 1. DVT within the bilateral peroneal and posterior tibial veins. 2. SVT within the right small saphenous vein. Assessment & Plan - Diagnosis (1) Pulmonary embolism, bilateral Is this a current diagnosis for this admission?: Yes Plan: Continue with current anticoagulation regimen. (2) Abdominal mass Qualifiers: Abdominal location: epigastric Qualified Code(s): R19.06 - Epigastric swelling, mass or lump Is this a current diagnosis for this admission?: Yes Plan: Awaiting cytology it is pending per pathology now. - Time Time Spent with patient: 35 or more minutes
--- NOTE | 2020-09-17 16:11 | PDOC PROGRESS REPORT ---
Subjective Date:: 09/17/20 Subjective:: Patient feels well today. Her shortness of breath is improved. She has no naus ea or vomiting. She is yet to have a bowel movement. States she has not had a bowel movement since Saturday. She is passing urine fine. Reason For Visit: ABDOMONAL MASS,PULMONARY EMBOLISM,BRAIN LESIONS, Physical Exam Vital Signs: Temp Pulse Resp BP Pulse Ox 97.8 F 100 18 106/52 L 98 09/17/20 10:00 09/17/20 11:34 09/17/20 11:34 09/17/20 11:34 09/17/20 11:34 Intake & Output 09/16/20 09/17/20 09/18/20 06:59 06:59 06:59 Intake Total 100 3271 Output Total 2000 Balance 100 1271 Weight 86.183 kg 92.8 kg General appearance: PRESENT: no acute distress, cooperative Neck exam: ABSENT: JVD Respiratory exam: PRESENT: clear to auscultation xander, symmetrical, unlabored. ABSENT: accessory muscle use, retraction, tachypnea, wheezes Cardiovascular exam: PRESENT: RRR, +S1, +S2. ABSENT: tachycardia GI/Abdominal exam: PRESENT: distended, soft. ABSENT: rebound, rigid, tenderness Neurological exam: PRESENT: alert, awake, oriented to person, oriented to place, oriented to time Psychiatric exam: ABSENT: agitated, anxious Skin exam: ABSENT: jaundice Results Laboratory Results: 09/17/20 05:19 09/17/20 05:19 09/16/20 09/16/20 09/17/20 14:00 15:49 05:19 WBC 20.7 H RBC 4.13 Hgb 10.6 L Hct 32.3 L MCV 78 L MCH 25.6 L MCHC 32.7 RDW 15.5 H Plt Count 396 Seg Neutrophils % Not Reportable Sodium 125.1 L Potassium 4.5 Chloride 96 L Carbon Dioxide 23 Anion Gap 6 BUN 33 H Creatinine 1.07 Est GFR ( Amer) > 60 Glucose 155 H Calcium 7.7 L Total Bilirubin AST Alkaline Phosphatase Total Protein Albumin Urine Color HANH Urine Appearance SLIGHTLY-CLOUDY Urine pH 5.0 Ur Specific [place] 1.039 Urine Protein NEGATIVE Urine Glucose (UA) 50 H Urine Ketones TRACE H Urine Blood NEGATIVE Urine RBC (Auto) 4 09/17/20 05:19 WBC RBC Hgb Hct MCV MCH MCHC RDW Plt Count Seg Neutrophils % Sodium 126.5 L Potassium 4.4 Chloride 97 L Carbon Dioxide 23 Anion Gap 7 BUN 26 H Creatinine 0.89 Est GFR ( Amer) > 60 Glucose 131 H Calcium 8.0 L Total Bilirubin 0.8 AST 35 Alkaline Phosphatase 72 Total Protein 5.1 L Albumin 2.8 L Urine Color Urine Appearance Urine pH Ur Specific [place] Urine Protein Urine Glucose (UA) Urine Ketones Urine Blood Urine RBC (Auto) 09/15/20 09/16/20 09/16/20 17:56 02:51 06:16 Troponin I 0.440 0.381 0.258 Impressions: Chest/Abdomen CTA 09/15/20 17:18 IMPRESSION: Extensive bilateral pulmonary emboli with evidence of right heart strain. Head CT 09/15/20 19:02 IMPRESSION: Small area of heterogeneity in the right parietal cortical/subcortical region. Further evaluation with contrast enhanced MRI is recommended. Given presence of hyperdensity, a subtle hemorrhagic component is not excluded. Head MRI 09/15/20 21:48 IMPRESSION: 1. Increased signal intensity present at the level of the parietal lobe suspected secondary to sequela of subacute versus chronic infarction with associated gliosis, cortical laminar necrosis and sequela of petechial hemorrhage at this site. Please correlate with patient neurological findings and consider short-term interval follow-up for stability. No clearly acute hemorrhage is identified. Venous Doppler Study 09/16/20 00:00 IMPRESSION: 1. DVT within the bilateral peroneal and posterior tibial veins. 2. SVT within the right small saphenous vein. Assessment and Plan - Diagnosis (1) Acute pulmonary embolism with acute cor pulmonale Qualifiers: Pulmonary embolism type: other Qualified Code(s): I26.09 - Other pulmonary embolism with acute cor pulmonale Is this a current diagnosis for this admission?: Yes Plan: Patient has Submassive PE. CTA shows extensive bilateral pulmonary embolism in the main arteries stretching all the way to the subsegmental branches of lower lobes with evidence of right heart strain on CT and RV dysfunction on echocardi ogram. Patient is not a candidate for TPA. Also not a candidate for other aggressive advanced measures. Continue heparin. PTT this morning was therapeutic. Will monitor. (2) DVT (deep venous thrombosis) Qualifiers: DVT location: lower extremity Affected thrombotic vein of extremity: peroneal Chronicity: acute Laterality: bilateral Qualified Code(s): I82.453 - Acute embolism and thrombosis of peroneal vein, bilateral Is this a current diagnosis for this admission?: Yes Plan: Doppler yesterday shows extensive bilateral DVTs. Likely these are from hypercoagulability from suspected malignancy. Given that patient already has a submassive PE, she may not survive another embolic event. I have discussed case with interventional radiologist Dr. Bustamante at [facility] who will perform IVC filter placement at [facility] this afternoon after which patient to be sent back to [facility]. Preprocedural Covid screen (3) Acute respiratory failure with hypoxia Is this a current diagnosis for this admission?: Yes Plan: Secondary to PE. Was on 3-4 L nasal cannula yesterday. Able to wean her down to 2 L today. (4) Abdominal mass Qualifiers: Abdominal location: epigastric Qualified Code(s): R19.06 - Epigastric swelling, mass or lump Is this a current diagnosis for this admission?: Yes Plan: CT abdomen showed multiple masses in the central and left upper abdomen area with moderate ascites and diffuse stomach wall thickening with a month along the lesser curvature area on 09/13 Lesions are suspicious for metastatic disease Oncology is following. Not yet confirmed but there is very high suspicion for malignancy may be gastric. Cytology from paracentesis is pending. Patient likely will undergo EGD with gastric biopsy as outpatient once her PE and respiratory issue simmers down a bit. (5) Acute kidney injury Is this a current diagnosis for this admission?: Yes Plan: Likely secondary to intravascular depletion. Resolved following albumin infusions yesterday. Last creatinine is 0.89 (6) Ascites, malignant Is this a current diagnosis for this admission?: Yes Plan: Status post large-volume paracentesis with removal of 4750 mL on 09/15/2020. Cytology is pending. (7) Elevated troponin Is this a current diagnosis for this admission?: Yes Plan: Secondary to right heart strain from PE. (8) Hyperkalemia Is this a current diagnosis for this admission?: Yes Plan: Resolved (9) Hypertension Is this a current diagnosis for this admission?: Yes Plan: Hypertensive remains on hold since systolic BP is around 100. (10) Hyponatremia Is this a current diagnosis for this admission?: Yes Plan: Mildly improved today. We will continue to monitor metabolic panel. (11) UTI (urinary tract infection) Qualifiers: Urinary tract infection type: acute cystitis Hematuria presence: without hematuria Qualified Code(s): N30.00 - Acute cystitis without hematuria Is this a current diagnosis for this admission?: Yes Plan: Urine analysis on 09/13 was significant for large leukocyte esterase with multiple WBCs Was being treated with cefdinir as outpatient Continue ceftriaxone for 2 more days. - Time Time Spent with patient: 15-24 minutes Anticipated Discharge Disposition: Home, Self Care Anticipated Discharge Timeframe: within 48 hours
[2020-09-17] MEDS: ATORVASTATIN CALCIUM 20 MG TABLET PO SCH (21:57)
[2020-09-18] MEDS: LEVOTHYROXINE SODIUM 0.15 MG TABLET PO SCH (05:41)
[2020-09-18 07:21] LABS: HEMATOCRIT 33.2 % (36.0-47.0); HEMOGLOBIN 11.1 g/dL (12.0-15.5); MEAN CORPUSCULAR HEMOGLOBIN 26.3 pg (27.0-33.4); MEAN CORPUSCULAR HGB CONC 33.5 g/dL (32.0-36.0); MEAN CORPUSCULAR VOLUME 79 fl (80-97); PLATELET COUNT 475 10^3/uL (150-450); RED BLOOD COUNT 4.22 10^6/uL (3.72-5.28); RED CELL DISTRIBUTION WIDTH 15.6 % (11.5-14.0); WHITE BLOOD COUNT 19.1 10^3/uL (4.0-10.5)
[2020-09-18 07:43] LABS: ANION GAP 7 (5-19); BLOOD UREA NITROGEN 25 mg/dL (7-20); CARBON DIOXIDE 20 mmol/L (22-30); CHLORIDE 96 mmol/L (98-107); GLUCOSE 119 mg/dL (75-110); POTASSIUM 4.9 mmol/L (3.6-5.0)
[2020-09-18 08:58] LABS: FREE T4 (FREE THYROXINE) 1.12 ng/dL (0.78-2.19)
[2020-09-18 09:12] LABS: THYROID STIMULATING HORMONE 21.2 uIU/mL (0.47-4.68)
[2020-09-18] MEDS: CHOLECALCIFEROL (D3) 1,000 UNIT (25 MCG) TABLET PO SCH (09:33)
[2020-09-18] MEDS: FAMOTIDINE 20 MG TABLET PO SCH ×2 (09:33→22:32)
[2020-09-18] MEDS: ASPIRIN 81 MG TABLET, ENT COATED PO SCH (09:33)
[2020-09-18] MEDS: MULTIVITAMIN TABLET PO SCH (09:33)
[2020-09-18] MEDS: CEFTRIAXONE 2 GM/D5W RTU 2 GM/50 ML RTUPB IV SCH (09:34)
[2020-09-18] MEDS ORDERED: POLYETHYLENE GLYCOL 3350 POWDER 17 GM/1 PACKET PO ONE (10:00)
[2020-09-18] MEDS ORDERED: FUROSEMIDE INJ/PF 40 MG/4 ML SDV IV ONE (13:43)
[2020-09-18] MEDS ORDERED: DEXTROSE 40% GEL 15 GM TUBE PO PRN ×2 (13:46)
[2020-09-18] MEDS ORDERED: DEXTROSE 50%-WATER 25 GM/50 ML DISP.SYRIN IV PRN ×2 (13:46)
[2020-09-18] MEDS ORDERED: GLUCAGON,HUMAN RECOMB 1 MG INJ SUBCUT PRN (13:46)
--- NOTE | 2020-09-18 13:51 | PDOC PROGRESS REPORT ---
Subjective Date:: 09/18/20 Subjective:: Complains of increased abdominal tension and distention causing her pain. In te cindy of her breathing she is female. She was mildly short of breath at times very much tolerable. States better than before. Reason For Visit: ABDOMONAL MASS,PULMONARY EMBOLISM,BRAIN LESIONS, Physical Exam Vital Signs: Temp Pulse Resp BP Pulse Ox 97.5 F 104 H 18 103/60 91 L 09/18/20 12:18 09/18/20 12:18 09/18/20 12:18 09/18/20 12:18 09/18/20 12:18 Intake & Output 09/17/20 09/18/20 09/19/20 06:59 06:59 06:59 Intake Total 3271 231 197 Output Total 2000 800 Balance 1271 -569 197 Weight 92.8 kg 93.6 kg General appearance: PRESENT: no acute distress, cooperative Neck exam: ABSENT: JVD Respiratory exam: PRESENT: clear to auscultation xander, unlabored. ABSENT: accessory muscle use, retraction, tachypnea, wheezes Cardiovascular exam: PRESENT: +S1, +S2, tachycardia. ABSENT: irregular rhythm GI/Abdominal exam: PRESENT: ascites, distended, soft, tenderness - Mild. ABSENT: rebound, rigid Extremities exam: PRESENT: pedal edema Neurological exam: PRESENT: alert, awake, oriented to person, oriented to place, oriented to time, oriented to situation Results Laboratory Results: 09/18/20 05:57 09/18/20 05:57 09/18/20 09/18/20 09/18/20 05:57 05:57 05:57 WBC 19.1 H RBC 4.22 Hgb 11.1 L Hct 33.2 L MCV 79 L MCH 26.3 L MCHC 33.5 RDW 15.6 H Plt Count 475 H Sodium 122.8 L Potassium 4.9 Chloride 96 L Carbon Dioxide 20 L Anion Gap 7 BUN 25 H Creatinine 0.71 Est GFR ( Amer) > 60 Glucose 119 H Calcium 8.0 L TSH 21.20 H Free T4 1.12 09/15/20 09/16/20 09/16/20 17:56 02:51 06:16 Troponin I 0.440 0.381 0.258 Impressions: Chest/Abdomen CTA 09/15/20 17:18 IMPRESSION: Extensive bilateral pulmonary emboli with evidence of right heart strain. Head CT 09/15/20 19:02 IMPRESSION: Small area of heterogeneity in the right parietal cortical/subcortical region. Further evaluation with contrast enhanced MRI is recommended. Given presence of hyperdensity, a subtle hemorrhagic component is not excluded. Head MRI 09/15/20 21:48 IMPRESSION: 1. Increased signal intensity present at the level of the parietal lobe suspected secondary to sequela of subacute versus chronic infarction with associated gliosis, cortical laminar necrosis and sequela of petechial hemorrhage at this site. Please correlate with patient neurological findings and consider short-term interval follow-up for stability. No clearly acute hemorrhage is identified. Venous Doppler Study 09/16/20 00:00 IMPRESSION: 1. DVT within the bilateral peroneal and posterior tibial veins. 2. SVT within the right small saphenous vein. Assessment and Plan - Diagnosis (1) Acute pulmonary embolism with acute cor pulmonale Qualifiers: Pulmonary embolism type: other Qualified Code(s): I26.09 - Other pulmonary embolism with acute cor pulmonale Is this a current diagnosis for this admission?: Yes Plan: Patient has Submassive PE. CTA shows extensive bilateral pulmonary embolism in the main arteries stretching all the way to the subsegmental branches of lower lobes with evidence of right heart strain on CT and RV dysfunction on echocardiogram. Patient is not a candidate for TPA. Also not a candidate for other aggressive advanced measures. Continue heparin. Monitor PTT. Will transition to Lovenox shots tomorrow -oncology recommended Lovenox on discharge. (2) DVT (deep venous thrombosis) Qualifiers: DVT location: lower extremity Affected thrombotic vein of extremity: per baires Chronicity: acute Laterality: bilateral Qualified Code(s): I82.453 - Acute embolism and thrombosis of peroneal vein, bilateral Is this a current diagnosis for this admission?: Yes Plan: IVC filter placed on 09/17/[address] Bustamante at [facility]. Groin access site looks good. (3) Acute respiratory failure with hypoxia Is this a current diagnosis for this admission?: Yes Plan: Secondary to PE. We will see if we can get her down to room air today. Othe rwise we will qualify her for oxygen (4) Abdominal mass Qualifiers: Abdominal location: epigastric Qualified Code(s): R19.06 - Epigastric swelling, mass or lump Is this a current diagnosis for this admission?: Yes Plan: CT abdomen showed multiple masses in the central and left upper abdomen area with moderate ascites and diffuse stomach wall thickening with a month along the lesser curvature area on 09/13 Lesions are suspicious for metastatic disease Oncology is following. Not yet confirmed but there is very high suspicion for malignancy may be gastric. Cytology from paracentesis is pending. Patient likely will undergo EGD with gastric biopsy as outpatient once her PE and respiratory issue simmers down a bit. (5) Ascites, malignant Is this a current diagnosis for this admission?: Yes Plan: Status post large-volume paracentesis with removal of 4750 mL on 09/15/2020. Cytology is pending. Today patient complains of further distention. I did discuss about holding off on paracentesis for now but this afternoon it seems that the tension is becoming much more uncomfortable for patient. We will plan for another therapeutic paracentesis tomorrow prior to discharge. (6) Hyponatremia Is this a current diagnosis for this admission?: Yes Plan: Sodium dropped further today. Now at 122. Check urine OSM and sodium. Will give Lasix. Repeat BMP this afternoon. (7) UTI (urinary tract infection) Qualifiers: Urinary tract infection type: acute cystitis Hematuria presence: without hematuria Qualified Code(s): N30.00 - Acute cystitis without hematuria Is this a current diagnosis for this admission?: Yes Plan: Urine analysis on 09/13 was significant for large leukocyte esterase with multiple WBCs Was being treated with cefdinir as outpatient Continue ceftriaxone for 2 days and stop then (8) Elevated troponin Is this a current diagnosis for this admission?: Yes Plan: Secondary to right heart strain from PE. (9) Hyperkalemia Is this a current diagnosis for this admission?: Yes Plan: Resolved (10) Hypertension Is this a current diagnosis for this admission?: Yes Plan: Hypertensive remains on hold since systolic BP is around 100. (11) Acute kidney injury Is this a current diagnosis for this admission?: Yes Plan: Likely secondary to intravascular depletion. Resolved following albumin infusions yesterday. Last creatinine is 0.89 - Time Time Spent with patient: 15-24 minutes Anticipated Discharge Disposition: Home with Home Health Anticipated Discharge Timeframe: within 24 hours
[2020-09-18] MEDS: HEPARIN SODIUM,PORCINE/D5W 25,000 UNIT/250 ML RTUINJ IV PRN (14:18)
[2020-09-18] MEDS: ALBUMIN HUMAN 12.5 GM/50 ML RTUINJ IV SCH ×2 (14:48→15:46)
[2020-09-18 15:43] LABS: URINE SODIUM < 5 mmol/L (30-90)
[2020-09-18 15:45] LABS: OSMOLALITY,URINE 566 mOsm/kg (300-900)
[2020-09-18] MEDS: HYDROCODONE/ACETAMINOPHEN 10-325 MG TABLET PO PRN ×2 (16:37→22:37)
[2020-09-18] MEDS ORDERED: LACTULOSE SYRUP 20 GM/30 ML UDCUP PO ONE ×2 (17:38→23:50)
[2020-09-18 18:43] LABS: ANION GAP 7 (5-19); BLOOD UREA NITROGEN 28 mg/dL (7-20); CARBON DIOXIDE 22 mmol/L (22-30); CHLORIDE 91 mmol/L (98-107); GLUCOSE 180 mg/dL (75-110)
[2020-09-18] MEDS ORDERED: NORMAL SALINE 1000 ML 500 ML IV ONE (19:01)
[2020-09-18] MEDS ORDERED: SODIUM CHLORIDE 1 GM TABLET PO ONE (19:30)
[2020-09-18] MEDS: ATORVASTATIN CALCIUM 20 MG TABLET PO SCH (22:32)
[2020-09-18] MEDS: ENOXAPARIN SODIUM INJ 100 MG/1 ML DISP.SYRIN SUBCUT SCH (22:32)
[2020-09-18 22:42] LABS: BLOOD UREA NITROGEN 29 mg/dL (7-20); CALCIUM 7.8 mg/dL (8.4-10.2); GLUCOSE 163 mg/dL (75-110)
[2020-09-18 22:43] LABS: CARBON DIOXIDE 19 mmol/L (22-30); CHLORIDE 92 mmol/L (98-107)
[2020-09-18 22:45] LABS: ANION GAP 9 (5-19)
[2020-09-18] MEDS ORDERED: NORMAL SALINE 500 ML IV PRN (23:31)
[2020-09-19 06:16] LABS: HEMATOCRIT 31.4 % (36.0-47.0); HEMOGLOBIN 10.5 g/dL (12.0-15.5); MEAN CORPUSCULAR HGB CONC 33.4 g/dL (32.0-36.0); MEAN CORPUSCULAR VOLUME 78 fl (80-97); PLATELET COUNT 503 10^3/uL (150-450); RED BLOOD COUNT 4.04 10^6/uL (3.72-5.28); RED CELL DISTRIBUTION WIDTH 15.5 % (11.5-14.0); WHITE BLOOD COUNT 18.6 10^3/uL (4.0-10.5)
[2020-09-19 06:40] LABS: ANION GAP 13 (5-19); BLOOD UREA NITROGEN 30 mg/dL (7-20); CARBON DIOXIDE 14 mmol/L (22-30); CHLORIDE 94 mmol/L (98-107); GLUCOSE 137 mg/dL (75-110)
[2020-09-19 06:48] LABS: CALCIUM 7.1 mg/dL (8.4-10.2)
[2020-09-19 06:57] LABS: APPEARANCE,URINE SLIGHTLY-CLOUDY; BILIRUBIN,URINE NEGATIVE (NEGATIVE); COLOR,URINE AMBER; GLUCOSE, URINE NEGATIVE (NEGATIVE); KETONES,URINE NEGATIVE (NEGATIVE); LEUKOCYTE ESTERASE,URINE NEGATIVE (NEGATIVE); NITRITE,URINE NEGATIVE (NEGATIVE); PROTEIN,URINE NEGATIVE (NEGATIVE); URINE SPECIFIC GRAVITY 1.025; UROBILINOGEN,URINE NEGATIVE mg/dL (<2.0)
--- NOTE | 2020-09-19 07:59 | PDOC PROGRESS REPORT ---
Subjective Date:: 09/19/20 Subjective:: Having more discomfort this morning with the abdomen. Paracentesis planned for today. Reason For Visit: ABDOMONAL MASS,PULMONARY EMBOLISM,BRAIN LESIONS, Physical Exam Vital Signs: Temp Pulse Resp BP Pulse Ox 98.0 F 97 18 118/64 97 09/19/20 04:32 09/19/20 07:00 09/19/20 04:32 09/19/20 04:32 09/19/20 04:32 Intake & Output 09/18/20 09/19/20 09/20/20 06:59 06:59 06:59 Intake Total 231 2006 Output Total 800 550 Balance -569 1457 Weight 93.6 kg 95.4 kg General appearance: PRESENT: no acute distress, well-developed, well-nourished Head exam: PRESENT: atraumatic, normocephalic Eye exam: PRESENT: conjunctiva pink, EOMI, PERRLA. ABSENT: scleral icterus Ear exam: PRESENT: normal external ear exam Mouth exam: PRESENT: moist, tongue midline Neck exam: ABSENT: carotid bruit, JVD, lymphadenopathy, thyromegaly Respiratory exam: PRESENT: clear to auscultation xander. ABSENT: rales, rhonchi, wheezes Cardiovascular exam: PRESENT: RRR. ABSENT: diastolic murmur, rubs, systolic murmur Pulses: PRESENT: normal dorsalis pedis pul Vascular exam: PRESENT: normal capillary refill GI/Abdominal exam: PRESENT: normal bowel sounds, soft. ABSENT: distended, guarding, mass, organolmegaly, rebound, tenderness Rectal exam: PRESENT: deferred Extremities exam: PRESENT: full ROM. ABSENT: calf tenderness, clubbing, pedal edema Neurological exam: PRESENT: alert, awake, oriented to person, oriented to place, oriented to time, oriented to situation, CN II-XII grossly intact. ABSENT: motor sensory deficit Psychiatric exam: PRESENT: appropriate affect, normal mood. ABSENT: homicidal ideation, suicidal ideation Skin exam: PRESENT: dry, intact, warm. ABSENT: cyanosis, rash Results Laboratory Results: 09/19/20 05:30 09/19/20 05:30 09/18/20 09/18/20 09/18/20 05:57 14:48 18:00 WBC RBC Hgb Hct MCV MCH MCHC RDW Plt Count Sodium 120.1 L* Potassium 5.0 Chloride 91 L Carbon Dioxide 22 Anion Gap 7 BUN 28 H Creatinine 1.25 Est GFR ( Amer) 51 L Glucose 180 H Calcium 8.0 L TSH 21.20 H Free T4 1.12 Urine Color Urine Appearance Urine pH Ur Specific [place] Urine Protein Urine Glucose (UA) Urine Ketones Urine Blood Urine Nitrite Ur Leukocyte Esterase Urine WBC (Auto) Urine RBC (Auto) Urine Osmolality 566 09/18/20 09/19/20 09/19/20 22:18 05:30 05:30 WBC 18.6 H RBC 4.04 Hgb 10.5 L Hct 31.4 L MCV 78 L MCH 26.0 L MCHC 33.4 RDW 15.5 H Plt Count 503 H Sodium 119.6 L* 121.1 L Potassium 5.0 5.0 Chloride 92 L 94 L Carbon Dioxide 19 L 14 L Anion Gap 9 13 BUN 29 H 30 H Creatinine 1.36 H 1.28 H Est GFR ( Amer) 46 L 49 L Glucose 163 H 137 H Calcium 7.8 L 7.1 L TSH Free T4 Urine Color Urine Appearance Urine pH Ur Specific [place] Urine Protein Urine Glucose (UA) Urine Ketones Urine Blood Urine Nitrite Ur Leukocyte Esterase Urine WBC (Auto) Urine RBC (Auto) Urine Osmolality 09/19/20 05:40 WBC RBC Hgb Hct MCV MCH MCHC RDW Plt Count Sodium Potassium Chloride Carbon Dioxide Anion Gap BUN Creatinine Est GFR ( Amer) Glucose Calcium TSH Free T4 Urine Color HANH Urine Appearance SLIGHTLY-CLOUDY Urine pH 5.0 Ur Specific [place] 1.025 Urine Protein NEGATIVE Urine Glucose (UA) NEGATIVE Urine Ketones NEGATIVE Urine Blood NEGATIVE Urine Nitrite NEGATIVE Ur Leukocyte Esterase NEGATIVE Urine WBC (Auto) 1 Urine RBC (Auto) 1 Urine Osmolality 09/15/20 09/16/20 09/16/20 17:56 02:51 06:16 Troponin I 0.440 0.381 0.258 Impressions: Chest/Abdomen CTA 09/15/20 17:18 IMPRESSION: Extensive bilateral pulmonary emboli with evidence of right heart strain. Head CT 09/15/20 19:02 IMPRESSION: Small area of heterogeneity in the right parietal cortical/subcortical region. Further evaluation with contrast enhanced MRI is recommended. Given presence of hyperdensity, a subtle hemorrhagic component is not excluded. Head MRI 09/15/20 21:48 IMPRESSION: 1. Increased signal intensity present at the level of the parietal lobe suspected secondary to sequela of subacute versus chronic infarction with associated gliosis, cortical laminar necrosis and sequela of petechial hemorrhage at this site. Please correlate with patient neurological findings and consider short-term interval follow-up for stability. No clearly acute hemorrhage is identified. Venous Doppler Study 09/16/20 00:00 IMPRESSION: 1. DVT within the bilateral peroneal and posterior tibial veins. 2. SVT within the right small saphenous vein. Assessment & Plan - Diagnosis (1) Pulmonary embolism, bilateral Is this a current diagnosis for this admission?: Yes Plan: Continue with Lovenox for now. (2) Abdominal mass Qualifiers: Abdominal location: epigastric Qualified Code(s): R19.06 - Epigastric swelling, mass or lump Is this a current diagnosis for this admission?: Yes Plan: Awaiting cytology (3) Ascites, malignant Is this a current diagnosis for this admission?: Yes Plan: Worsened again, paracentesis planned for today - Time Time Spent with patient: 35 or more minutes
[2020-09-19 08:18] LABS: INTERNATIONAL RATION (INR) 1.14; PROTHROMBIN TIME 14.8 SEC (11.4-15.4)
[2020-09-19 08:19] LABS: PARTIAL THROMBOPLASTIN TIME 33.9 SEC (23.5-35.8)
[2020-09-19] MEDS: LEVOTHYROXINE SODIUM 0.15 MG TABLET PO SCH (09:19)
[2020-09-19] MEDS: CHOLECALCIFEROL (D3) 1,000 UNIT (25 MCG) TABLET PO SCH (09:20)
[2020-09-19] MEDS: ENOXAPARIN SODIUM INJ 100 MG/1 ML DISP.SYRIN SUBCUT SCH ×2 (09:20→21:37)
[2020-09-19] MEDS: MULTIVITAMIN TABLET PO SCH (09:20)
[2020-09-19] MEDS: FAMOTIDINE 20 MG TABLET PO SCH ×2 (09:20→21:37)
[2020-09-19] MEDS: ASPIRIN 81 MG TABLET, ENT COATED PO SCH (09:20)
[2020-09-19] MEDS: ALBUMIN HUMAN 12.5 GM/50 ML RTUINJ IV SCH ×2 (11:30→14:01)
[2020-09-19] MEDS ORDERED: ALBUMIN HUMAN 12.5 GM/50 ML RTUINJ IV ONE ×2 (12:17→14:30)
--- NOTE | 2020-09-19 12:44 | RADIOLOGY REPORT (SQ) ---
EXAM DESCRIPTION: U/S ABD PARACENTESIS IMAGES COMPLETED DATE/TIME: 09/19/2020 11:49 am REASON FOR STUDY: abdominal pain/distension from ascites COMPARISON None. LIMITATIONS: None. PROCEDURE: The procedure, risks, benefits, and alternatives were discussed with the patient and the patient's family who then gave written consent. The right lower quadrant was then marked utilizing s onographic guidance and a time-out was performed to document correct marking verification. The area around the selected percutaneous access site was then prepped and draped with 2% chlorhexidi ne utilizing standard sterile technique. After that, the selected access site was infiltrated with 5 ml of 1% lidocaine. A 6 [place] [id number] catheter was then introduced into the fluid-filled p eritoneal cavity and the fluid was aspirated. After the fluid was aspirated, the catheter was removed and the entry site was covered with a sterile bandage. No immediate complications were noted. Volume of Fluid: 3800 mL. Quality of the Fluid: Serosanguinous. Was the fluid collected for analysis? No. Images acquired during the procedure were submitted to PACS. The patient tolerated the procedure with local anesthesia. At the end of the procedure the patient's condition was unchanged from the preprocedural baseline. Documentation of [id number] time the proceduralist spent monitoring the patient: 15 minutes. IMPRESSION: Successful ultrasound-guided paracentesis. COMMENT: Patient medication list reviewed: Yes- Quality ID# [id number]:Eligible professional attests to doc umenting in the medical record they obtained, updated, or reviewed the patient's current medications. TECHNICAL DOCUMENTATION: JOB ID: [id number] 2010 [employer]- All Rights Reserved Reading location - IP/workstation name: [email or web address]
[2020-09-19 15:37] LABS: ANION GAP 14 (5-19); BLOOD UREA NITROGEN 32 mg/dL (7-20); CALCIUM 8.3 mg/dL (8.4-10.2); CARBON DIOXIDE 17 mmol/L (22-30); CHLORIDE 93 mmol/L (98-107); GLUCOSE 172 mg/dL (75-110); POTASSIUM 4.6 mmol/L (3.6-5.0)
--- NOTE | 2020-09-19 17:16 | PDOC PROGRESS REPORT ---
Subjective Date:: 09/19/20 Subjective:: Has seen patient twice a day before and after paracentesis. Patient is doing ok ay. She feels better after the paracentesis. Abdominal discomfort seems a lot better. Her breathing also is better following the para. Her cytology from her initial paracentesis has come back positive. Reason For Visit: ABDOMONAL MASS,PULMONARY EMBOLISM,BRAIN LESIONS, Physical Exam Vital Signs: Temp Pulse Resp BP Pulse Ox 97.6 F 102 H 16 94/49 L 95 09/19/20 13:57 09/19/20 14:00 09/19/20 13:57 09/19/20 13:57 09/19/20 13:57 Intake & Output 09/18/20 09/19/20 09/20/20 06:59 06:59 06:59 Intake Total 231 2007 50 Output Total 800 550 Balance -569 1457 50 Weight 93.6 kg 95.4 kg General appearance: PRESENT: no acute distress, cooperative Neck exam: ABSENT: JVD Respiratory exam: PRESENT: clear to auscultation xander, symmetrical, unlabored. ABSENT: tachypnea, wheezes Cardiovascular exam: PRESENT: RRR, +S1, +S2. ABSENT: tachycardia GI/Abdominal exam: PRESENT: ascites, distended, soft, tenderness. ABSENT: firm, guarding, rebound, rigid Neurological exam: PRESENT: alert, awake, oriented to person, oriented to place, oriented to time, oriented to situation Psychiatric exam: ABSENT: agitated, anxious Results Laboratory Results: 09/19/20 05:30 09/19/20 15:00 09/18/20 09/18/20 09/19/20 18:00 22:18 05:30 WBC RBC Hgb Hct MCV MCH MCHC RDW Plt Count Sodium 120.1 L* 119.6 L* 121.1 L Potassium 5.0 5.0 5.0 Chloride 91 L 92 L 94 L Carbon Dioxide 22 19 L 14 L Anion Gap 7 9 13 BUN 28 H 29 H 30 H Creatinine 1.25 1.36 H 1.28 H Est GFR ( Amer) 51 L 46 L 49 L Glucose 180 H 163 H 137 H Calcium 8.0 L 7.8 L 7.1 L Albumin Urine Color Urine Appearance Urine pH Ur Specific Silver Urine Protein Urine Glucose (UA) Urine Ketones Urine Blood Urine Nitrite Ur Leukocyte Esterase Urine WBC (Auto) Urine RBC (Auto) 12/21/20 12/21/20 12/21/20 05:30 05:30 05:40 WBC 18.6 H RBC 4.04 Hgb 10.5 L Hct 31.4 L MCV 78 L MCH 26.0 L MCHC 33.4 RDW 15.5 H Plt Count 503 H Sodium Potassium Chloride Carbon Dioxide Anion Gap BUN Creatinine Est GFR ( Amer) Glucose Calcium Albumin 2.7 L Urine Color HANH Urine Appearance SLIGHTLY-CLOUDY Urine pH 5.0 Ur Specific Silver 1.025 Urine Protein NEGATIVE Urine Glucose (UA) NEGATIVE Urine Ketones NEGATIVE Urine Blood NEGATIVE Urine Nitrite NEGATIVE Ur Leukocyte Esterase NEGATIVE Urine WBC (Auto) 1 Urine RBC (Auto) 1 09/19/20 15:00 WBC RBC Hgb Hct MCV MCH MCHC RDW Plt Count Sodium 123.6 L Potassium 4.6 Chloride 93 L Carbon Dioxide 17 L Anion Gap 14 BUN 32 H Creatinine 1.54 H Est GFR ( Amer) 40 L Glucose 172 H Calcium 8.3 L Albumin Urine Color Urine Appearance Urine pH Ur Specific Silver Urine Protein Urine Glucose (UA) Urine Ketones Urine Blood Urine Nitrite Ur Leukocyte Esterase Urine WBC (Auto) Urine RBC (Auto) 09/15/20 09/16/20 09/16/20 17:56 02:51 06:16 Troponin I 0.440 0.381 0.258 Impressions: Chest/Abdomen CTA 09/15/20 17:18 IMPRESSION: Extensive bilateral pulmonary emboli with evidence of right heart strain. Head CT 09/15/20 19:02 IMPRESSION: Small area of heterogeneity in the right parietal cortical/subcortical region. Further evaluation with contrast enhanced MRI is recommended. Given presence of hyperdensity, a subtle hemorrhagic component is not excluded. Head MRI 09/15/20 21:48 IMPRESSION: 1. Increased signal intensity present at the level of the parietal lobe suspected secondary to sequela of subacute versus chronic infarction with associated gliosis, cortical laminar necrosis and sequela of petechial hemorrhage at this site. Please correlate with patient neurological findings and consider short-term interval follow-up for stability. No clearly acute hemorrhage is identified. Venous Doppler Study 09/16/20 00:00 IMPRESSION: 1. DVT within the bilateral peroneal and posterior tibial veins. 2. SVT within the right small saphenous vein. Paracentesis Ultrasound 09/19/20 00:00 IMPRESSION: Successful ultrasound-guided paracentesis. Assessment and Plan - Diagnosis (1) Adenocarcinoma of stomach, stage 4 Is this a current diagnosis for this admission?: Yes Plan: New diagnosis. Cytology from initial paracentesis has resulted today. Has omental spread. Dr. Bowser initiating chemo tomorrow. (2) Hyponatremia Is this a current diagnosis for this admission?: Yes Plan: Worsened yesterday but seems to be improving now. Wonder if heparin infusion solvent could have played a role in worsening her sodium yesterday. Serial BMPs. I consulted Nephrology and discussed case jack in light of JAIDA - Nephro to see tomorrow. (3) Ascites, malignant Is this a current diagnosis for this admission?: Yes Plan: S/P paracentesis on 09/15 - 4.7L removed S/p therapeutic paracentestis 09/19 - 3.8 L removed. 37.5g of albumin given. (4) Acute pulmonary embolism with acute cor pulmonale Qualifiers: Pulmonary embolism type: other Qualified Code(s): I26.09 - Other pulmonary embolism with acute cor pulmonale Is this a current diagnosis for this admission?: Yes Plan: Submassive PE. CTA shows extensive bilateral pulmonary embolism in the main arteries stretching all the way to the subsegmental branches of lower lobes with evidence of right heart strain on CT and RV dysfunction on echocardiogram. Patient is not a candidate for TPA. Also not a candidate for other aggressive advanced measures. Initially on heparin gtt. Now on Lovenox shots which she will be discharged with. (5) DVT (deep venous thrombosis) Qualifiers: DVT location: lower extremity Affected thrombotic vein of extremity: peroneal Chronicity: acute Laterality: bilateral Qualified Code(s): I82.453 - Acute embolism and thrombosis of peroneal vein, bilateral Is this a current diagnosis for this admission?: Yes Plan: IVC filter placed on 09/17/2020 [was sent to [facility] for the procedure] due to Submassive PE and likely fatality from further embolic event. C/w AC. (6) Acute kidney injury Is this a current diagnosis for this admission?: Yes Plan: Suspect her 3rd spacing of fluid may have left her intravascular depleted. No obstruction on CT. Nephrology has been consulted. (7) Acute respiratory failure with hypoxia Is this a current diagnosis for this admission?: Yes Plan: Secondary to PE. Attempt O2 wean as tolerated. (8) UTI (urinary tract infection) Qualifiers: Urinary tract infection type: acute cystitis Hematuria presence: without hematuria Qualified Code(s): N30.00 - Acute cystitis without hematuria Is this a current diagnosis for this admission?: Yes Plan: Diagnosed as outpt. Completed IV abx course yesterday. (9) Hypertension Is this a current diagnosis for this admission?: Yes Plan: Hypertensive med remains on hold since systolic BPs have been soft. (10) Elevated troponin Is this a current diagnosis for this admission?: Yes Plan: Secondary to right heart strain from PE. - Time Time Spent with patient: 25-34 minutes Anticipated Discharge Disposition: Home with Home Health Anticipated Discharge Timeframe: within 72 hours
[2020-09-19] MEDS: ATORVASTATIN CALCIUM 20 MG TABLET PO SCH (21:37)
[2020-09-20] MEDS: LEVOTHYROXINE SODIUM 0.15 MG TABLET PO SCH (05:52)
[2020-09-20 06:26] LABS: ANION GAP 9 (5-19); BLOOD UREA NITROGEN 33 mg/dL (7-20); CALCIUM 8.1 mg/dL (8.4-10.2); CARBON DIOXIDE 20 mmol/L (22-30); CHLORIDE 93 mmol/L (98-107); GLUCOSE 115 mg/dL (75-110); POTASSIUM 5.1 mmol/L (3.6-5.0)
--- NOTE | 2020-09-20 08:10 | PDOC PROGRESS REPORT ---
Subjective Date:: 09/20/20 Subjective:: Patient feeling better this morning, had long discussion with her yesterday as well as today, spent greater than 45 minutes in discussion. Also discussed her case with her son. She does have adenocarcinoma, consistent with GI primary noted on the malignant ascites, this seems consistent with a probable gastric primary. We discussed this is stage IV disease. We would like to initiate chemotherapy as soon as possible. We have placed order for this, and have asked chemo nursing today to work on getting her treated as soon as possible. They note that today may be possible to treat. Reason For Visit: ABDOMONAL MASS,PULMONARY EMBOLISM,BRAIN LESIONS, Physical Exam Vital Signs: Temp Pulse Resp BP Pulse Ox 98.0 F 99 17 103/74 94 09/20/20 03:03 09/20/20 03:03 09/20/20 03:03 09/20/20 03:03 09/20/20 03:03 Intake & Output 09/19/20 09/20/20 09/21/20 06:59 06:59 06:59 Intake Total 2007 870 Output Total 550 Balance 1457 870 Weight 95.4 kg 91.9 kg General appearance: PRESENT: no acute distress, well-developed, well-nourished Head exam: PRESENT: atraumatic, normocephalic Eye exam: PRESENT: conjunctiva pink, EOMI, PERRLA. ABSENT: scleral icterus Ear exam: PRESENT: normal external ear exam Mouth exam: PRESENT: moist, tongue midline Neck exam: ABSENT: carotid bruit, JVD, lymphadenopathy, thyromegaly Respiratory exam: PRESENT: clear to auscultation xander. ABSENT: rales, rhonchi, wheezes Cardiovascular exam: PRESENT: RRR. ABSENT: diastolic murmur, rubs, systolic murmur Pulses: PRESENT: normal dorsalis pedis pul Vascular exam: PRESENT: normal capillary refill GI/Abdominal exam: PRESENT: normal bowel sounds, soft. ABSENT: distended, guarding, mass, organolmegaly, rebound, tenderness Rectal exam: PRESENT: deferred Extremities exam: PRESENT: full ROM. ABSENT: calf tenderness, clubbing, pedal edema Neurological exam: PRESENT: alert, awake, oriented to person, oriented to place, oriented to time, oriented to situation, CN II-XII grossly intact. ABSENT: motor sensory deficit Psychiatric exam: PRESENT: appropriate affect, normal mood. ABSENT: homicidal ideation, suicidal ideation Skin exam: PRESENT: dry, intact, warm. ABSENT: cyanosis, rash Results Laboratory Results: 09/19/20 05:30 09/20/20 05:30 09/19/20 09/19/20 09/20/20 05:30 15:00 05:30 Sodium 123.6 L 121.7 L Potassium 4.6 5.1 H Chloride 93 L 93 L Carbon Dioxide 17 L 20 L Anion Gap 14 9 BUN 32 H 33 H Creatinine 1.54 H 1.23 Est GFR ( Amer) 40 L 52 L Glucose 172 H 115 H Calcium 8.3 L 8.1 L Albumin 2.7 L 09/15/20 09/16/20 09/16/20 17:56 02:51 06:16 Troponin I 0.440 0.381 0.258 Impressions: Chest/Abdomen CTA 09/15/20 17:18 IMPRESSION: Extensive bilateral pulmonary emboli with evidence of right heart strain. Head CT 09/15/20 19:02 IMPRESSION: Small area of heterogeneity in the right parietal cortical/subcortical region. Further evaluation with contrast enhanced MRI is recommended. Given presence of hyperdensity, a subtle hemorrhagic component is not excluded. Head MRI 09/15/20 21:48 IMPRESSION: 1. Increased signal intensity present at the level of the parietal lobe suspected secondary to sequela of subacute versus chronic infarction with associated gliosis, cortical laminar necrosis and sequela of petechial hemorrhage at this site. Please correlate with patient neurological findings and consider short-term interval follow-up for stability. No clearly acute hemorrhage is identified. Venous Doppler Study 09/16/20 00:00 IMPRESSION: 1. DVT within the bilateral peroneal and posterior tibial veins. 2. SVT within the right small saphenous vein. Paracentesis Ultrasound 09/19/20 00:00 IMPRESSION: Successful ultrasound-guided paracentesis. Assessment & Plan - Diagnosis (1) Pulmonary embolism, bilateral Is this a current diagnosis for this admission?: Yes Plan: Continue current anticoagulation (2) Ascites, malignant Is this a current diagnosis for this admission?: Yes Plan: Paracentesis done yesterday. Hopefully we could wait 1 more week before next paracentesis. (3) Adenocarcinoma of stomach, stage 4 Is this a current diagnosis for this admission?: Yes Plan: Stage IV adenocarcinoma of the stomach most likely, plan for initiation of FOLFOX chemotherapy, placed orders, hopeful initiation of therapy today. - Time Time Spent with patient: 35 or more minutes - Inpatient Certification Based on my medical assessment, after consideration of the patient's comorbidities, presenting symptoms, or acuity I expect that the services needed warrant INPATIENT care.: Yes I certify that my determination is in accordance with my understanding of Medicare's requirements for reasonable and necessary INPATIENT services [42 CFR 412.3e].: Yes Medical Necessity: Risk of Complication if Not Cared For in Hospital
[2020-09-20] MEDS ORDERED: DEXTROSE 5% IV PRN ×2 (09:00)
[2020-09-20] MEDS ORDERED: PALONOSETRON 0.25 MG/5 ML VIAL IV PRN (09:00)
[2020-09-20] MEDS ORDERED: FLUOROURACIL IV PRN ×2 (09:00)
[2020-09-20] MEDS ORDERED: LEUCOVORIN CALCIUM IV PRN (09:00)
[2020-09-20] MEDS ORDERED: DEXTROSE 5%-WATER 250 ML IV PRN (09:00)
[2020-09-20] MEDS ORDERED: WATER IV PRN ×2 (09:00)
[2020-09-20] MEDS ORDERED: CONTAINER EMPTY IV PRN (09:00)
[2020-09-20] MEDS ORDERED: DEXAMETHASONE 10 MG in NS 50 ML IV PRN (09:00)
[2020-09-20] MEDS ORDERED: OXALIPLATIN IV PRN (09:00)
[2020-09-20] MEDS ORDERED: DISPOSABLE IV PRN (09:00)
[2020-09-20] MEDS: SENNOSIDES/DOCUSATE 8.6-50 MG 1 EACH TABLET PO SCH (10:31)
[2020-09-20] MEDS: CHOLECALCIFEROL (D3) 1,000 UNIT (25 MCG) TABLET PO SCH (10:32)
[2020-09-20] MEDS: ASPIRIN 81 MG TABLET, ENT COATED PO SCH (10:33)
[2020-09-20] MEDS: ENOXAPARIN SODIUM INJ 100 MG/1 ML DISP.SYRIN SUBCUT SCH (10:33)
[2020-09-20] MEDS: FAMOTIDINE 20 MG TABLET PO SCH ×2 (10:34→22:18)
[2020-09-20] MEDS: MULTIVITAMIN TABLET PO SCH (10:34)
--- NOTE | 2020-09-20 12:15 | PDOC PROGRESS REPORT ---
Subjective Date:: 09/20/20 Subjective:: Patient is about to get her first chemotherapy treatment. She is worried about recurrent ascites requiring repeated paracenteses. Does not appear to be in any discomfort at this time and she reports her breathing is improved after the second paracentesis. Reason For Visit: ABDOMONAL MASS,PULMONARY EMBOLISM,BRAIN LESIONS, Physical Exam Vital Signs: Temp Pulse Resp BP Pulse Ox 98.0 F 97 18 86/69 L 92 09/20/20 11:14 09/20/20 11:14 09/20/20 07:33 09/20/20 11:14 09/20/20 11:14 Intake & Output 09/19/20 09/20/20 09/21/20 06:59 06:59 06:59 Intake Total 2006 870 Output Total 550 Balance 1457 870 Weight 95.4 kg 91.9 kg General appearance: PRESENT: no acute distress, cooperative, well-developed Head exam: PRESENT: atraumatic, normocephalic Ear exam: PRESENT: normal external ear exam. ABSENT: bleeding, drainage Mouth exam: PRESENT: moist, tongue midline Neck exam: PRESENT: JVD. ABSENT: carotid bruit Respiratory exam: PRESENT: rales - Bilateral bases, symmetrical, unlabored. ABSENT: rhonchi, tachypnea, wheezes Cardiovascular exam: PRESENT: RRR, +S1, +S2. ABSENT: bradycardia, diastolic murmur, irregular rhythm, systolic murmur, tachycardia GI/Abdominal exam: PRESENT: diminished bowel sounds, distended, soft. ABSENT: guarding Rectal exam: PRESENT: deferred Neurological exam: PRESENT: alert, awake, oriented to person, oriented to place, oriented to time, oriented to situation, CN II-XII grossly intact. ABSENT: altered Psychiatric exam: PRESENT: appropriate affect. ABSENT: agitated, anxious Focused psych exam: ABSENT: delusional, paranoid, restlessness Skin exam: PRESENT: dry, normal color, warm Results Laboratory Results: 09/19/20 05:30 09/20/20 05:30 09/19/20 09/20/20 15:00 05:30 Sodium 123.6 L 121.7 L Potassium 4.6 5.1 H Chloride 93 L 93 L Carbon Dioxide 17 L 20 L Anion Gap 14 9 BUN 32 H 33 H Creatinine 1.54 H 1.23 Est GFR ( Amer) 40 L 52 L Glucose 172 H 115 H Calcium 8.3 L 8.1 L 09/15/20 09/16/20 09/16/20 17:56 02:51 06:16 Troponin I 0.440 0.381 0.258 Impressions: Chest/Abdomen CTA 09/15/20 17:18 IMPRESSION: Extensive bilateral pulmonary emboli with evidence of right heart strain. Head CT 09/15/20 19:02 IMPRESSION: Small area of heterogeneity in the right parietal cortical/subcortical region. Further evaluation with contrast enhanced MRI is recommended. Given presence of hyperdensity, a subtle hemorrhagic component is not excluded. Head MRI 09/15/20 21:48 IMPRESSION: 1. Increased signal intensity present at the level of the parietal lobe suspected secondary to sequela of subacute versus chronic infarction with associated gliosis, cortical laminar necrosis and sequela of petechial hemorrhage at this site. Please correlate with patient neurological findings and consider short-term interval follow-up for stability. No clearly acute hemorrhage is identified. Venous Doppler Study 09/16/20 00:00 IMPRESSION: 1. DVT within the bilateral peroneal and posterior tibial veins. 2. SVT within the right small saphenous vein. Paracentesis Ultrasound 09/19/20 00:00 IMPRESSION: Successful ultrasound-guided paracentesis. Assessment and Plan - Diagnosis (1) Adenocarcinoma of stomach, stage 4 Is this a current diagnosis for this admission?: Yes (2) Hyponatremia Is this a current diagnosis for this admission?: Yes (3) Ascites, malignant Is this a current diagnosis for this admission?: Yes (4) Acute pulmonary embolism with acute cor pulmonale Qualifiers: Pulmonary embolism type: other Qualified Code(s): I26.09 - Other pulmonary embolism with acute cor pulmonale Is this a current diagnosis for this admission?: Yes (5) DVT (deep venous thrombosis) Qualifiers: DVT location: lower extremity Affected thrombotic vein of extremity: peroneal Chronicity: acute Laterality: bilateral Qualified Code(s): I82.453 - Acute embolism and thrombosis of peroneal vein, bilateral Is this a current diagnosis for this admission?: Yes (6) Acute kidney injury Is this a current diagnosis for this admission?: Yes (7) Acute respiratory failure with hypoxia Is this a current diagnosis for this admission?: Yes (8) Elevated troponin Is this a current diagnosis for this admission?: Yes (9) UTI (urinary tract infection) Qualifiers: Urinary tract infection type: acute cystitis Hematuria presence: without hematuria Qualified Code(s): N30.00 - Acute cystitis without hematuria Is this a current diagnosis for this admission?: Yes (10) Pain of metastatic malignancy Is this a current diagnosis for this admission?: Yes - Plan Summary Summary: (1) Adenocarcinoma of stomach, stage 4 Is this a current diagnosis for this admission?: Yes Plan: New diagnosis. Cytology from initial paracentesis has resulted today. Has omental spread. Dr. Bowser initiating chemo tomorrow. (2) Hyponatremia Is this a current diagnosis for this admission?: Yes Plan: Worsened yesterday but seems to be improving now. Wonder if heparin infusion solvent could have played a role in worsening her sodium yesterday. Serial BMPs. I consulted Nephrology and discussed case jack in light of JAIDA - Nephro to see tomorrow. (3) Ascites, malignant Is this a current diagnosis for this admission?: Yes Plan: S/P paracentesis on 09/15 - 4.7L removed S/p therapeutic paracentestis 09/19 - 3.8 L removed. 37.5g of albumin given. (4) Acute pulmonary embolism with acute cor pulmonale Qualifiers: Pulmonary embolism type: other Qualified Code(s): I26.09 - Other pulmonary embolism with acute cor pulmonale Is this a current diagnosis for this admission?: Yes Plan: Submassive PE. CTA shows extensive bilateral pulmonary embolism in the main jude cyndi stretching all the way to the subsegmental branches of lower lobes with evidence of right heart strain on CT and RV dysfunction on echocardiogram. Patient is not a candidate for TPA. Also not a candidate for other aggressive advanced measures. Initially on heparin gtt. Now on Lovenox shots which she will be discharged with. (5) DVT (deep venous thrombosis) Qualifiers: DVT location: lower extremity Affected thrombotic vein of extremity: peroneal Chronicity: acute Laterality: bilateral Qualified Code(s): I82.453 - Acute embolism and thrombosis of peroneal vein, bilateral Is this a current diagnosis for this admission?: Yes Plan: IVC filter placed on 09/17/2020 [was sent to [facility] for the procedure] due to Submassive PE and likely fatality from further embolic event. C/w AC. (6) Acute kidney injury Is this a current diagnosis for this admission?: Yes Plan: Suspect her 3rd spacing of fluid may have left her intravascular depleted. No obstruction on CT. Nephrology has been consulted. (7) Acute respiratory failure with hypoxia Is this a current diagnosis for this admission?: Yes Plan: Secondary to PE. Attempt O2 wean as tolerated. (8) UTI (urinary tract infection) Qualifiers: Urinary tract infection type: acute cystitis Hematuria presence: without hematuria Qualified Code(s): N30.00 - Acute cystitis without hematuria Is this a current diagnosis for this admission?: Yes Plan: Diagnosed as outpt. Completed IV abx course yesterday. (9) Hypertension Is this a current diagnosis for this admission?: Yes Plan: Hypertensive med remains on hold since systolic BPs have been soft. (10) Elevated troponin Is this a current diagnosis for this admission?: Yes Plan: Secondary to right heart strain from PE. (11) pain of metastatic malignancy 09/20/2020 I saw the patient twice today. The evening of visit reveals a definite increase in ascites from this morning. The patient is having significant discomfort. In addition to the abdominal pain she is having back pain. Increased difficulty breathing based on the ascites. It is difficult for her to find a comfortable position. The paracentesis yesterday yielded 3800 mL of fluid. She received 12.5 g of albumin before and after. With the rapid reaccumulation will need to give more albumin. I will give her 25 g tonight and then I have ordered 25 g for the morning as well as repeat paracentesis. I will give another 25 g after the procedure. Unfortunately there is no easy answer for this. I did discuss this with the patient. She does understand that at some point the pain medications can suppress her breathing. She accepted this and stated that getting comfortable was the most important thing right now. Metastatic cancer likely gastric primary-we did review the fact that the chemotherapy was palliative. I told her we will need to try and find a middle ground with regard to fluid accumulation and sodium levels. Right now she is on a 1 L fluid restriction. We will see how this works. Dr. Preciado is consulting for the hyponatremia as well. Continue oxygen supplementation for the respiratory failure with hypoxia that is secondary to pulmonary emboli. As I have scheduled a repeat paracentesis in the morning I am holding [employer]'s Lovenox as well as tomorrow morning's Lovenox. The patient is having significant pain. 2 mg of morphine was completely ineffective. We will give an additional 4 mg now and change her dosing to 5 mg every 4 hours as needed. She clearly is anxious and this is understandable given her circumstance. I have also ordered lorazepam as needed. We will trial trazodone for sleep. The BUN and creatinine are slowly improving. We will recheck labs tomorrow. Appreciate Dr. Preciado's input. Post procedure we will continue Lovenox for DVTs and pulmonary emboli. Will discuss with Dr. Bowser regarding ongoing outpatient anticoagulation. As noted above the patient does have an IVC filter at this time. I did order a chest x- ray to rule out pleural effusions. I did explain to the patient that the combination of her pulmonary emboli and ascites are both contributing to her difficulty breathing. - Time Time Spent with patient: 35 or more minutes - Accumulation of 2 visits today Medications reviewed and adjusted accordingly: Yes Anticipated Discharge Disposition: Home with Home Health Anticipated Discharge Timeframe: Unknown
[2020-09-20 16:08] LABS: URINE SODIUM < 5 mmol/L (30-90)
[2020-09-20 16:11] LABS: OSMOLALITY,URINE 567 mOsm/kg (300-900)
[2020-09-20] MEDS: FUROSEMIDE 40 MG TABLET PO SCH (16:13)
[2020-09-20] MEDS: HYDROCODONE/ACETAMINOPHEN 10-325 MG TABLET PO PRN (18:22)
[2020-09-20] MEDS ORDERED: MORPHINE SULFATE 10 MG/ML INJ IV PRN (19:08)
[2020-09-20] MEDS ORDERED: MORPHINE SULFATE 10 MG/ML INJ ONE (20:10)
[2020-09-20] MEDS ORDERED: LORAZEPAM INJ 2 MG/1 ML VIAL IV PRN (20:22)
[2020-09-20] MEDS: ALBUMIN HUMAN 12.5 GM/50 ML RTUINJ IV SCH (22:10)
[2020-09-20] MEDS: TRAZODONE HCL 50 MG TABLET PO PRN (22:18)
[2020-09-20] MEDS: ATORVASTATIN CALCIUM 20 MG TABLET PO SCH (22:18)
--- NOTE | 2020-09-20 22:19 | PDOC CONSULTATION ---
Consultation Consult Date: 09/20/20 Provider Consulted: DANUTA HACKETT Consult reason:: Hyponatremia/JAIDA History of Present Illness Admission Date/PCP: 09/16/20 01:31 IWONA WHITFIELD MD History of Present Illness: NHAN BLANTON is a 75 year old female with history of hypertension, hyperlipidemia and prediabetes who was admitted on 09/16/2020 because of shortness of breath. Patient came in with significant ascites for which an initial paracentesis was obtained upon admission and obtaining about 4.7 L of ascitic fluid followed by albumin infusion. A repeat paracentesis was done yesterday obtaining about 3.8 L of ascitic fluid which made the patient's breathing better this morning. Patient's case is pretty complex with multiple issues including a diagnosis of acute bilateral pulmonary embolism and bilateral lower extremity DVT requiring anticoagulation with Lovenox and IVC filter placed on 09/17/2020. There was also a note of masses in the upper abdomen partially visualized, note of mild ascites and evidence of peritoneal carcinomatosis on initial CT of the abdomen. Oncologist, Dr. Bowser was consulted. 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 Dr. Bowser is initiating chemotherapy today, most likely for palliation only. I am being consulted for hyponatremia and JAIDA. Patient was admitted with a sodium level of 125.5 which went down further to 119.6 on September 18 when her ascites has reaccumulated. Yesterday she had a sodium level of 123.6 and today went back down a little bit again at 121.7. Her TSH was elevated at 21.2 with free T4 of 1.12. On 09/18/2020 her urine sodium was less than 5 with urine osmolality of 566. From the records she was given at least 2 L of normal saline between September 16 to September 19. Her albumin is low at 2.7 recently. She is being given albumin infusions specially post large- volume paracentesis. She admits that her appetite is decreased. She states that she drinks a lot of water at least 2 L a day. She states that she never had any problem with sodium that she is aware of before. She denies any nausea, vomiting nor episodes of confusions. She has no leg swelling. In terms of the kidney function she was admitted with a BUN of 35, creatinine of 1.53 with EGFR of 33. This is improved to 25, creatinine of 0.71 on 09/18/2020. Yesterday the kidney function was worse again with a BUN of 32, creatinine of 1.54. Today she has a BUN of 33, creatinine 1.23 with EGFR 43. On 09/13/2020 she had a BUN of 24, creatinine 1.12 with EGFR 48. She denies any problems with her kidney function before. She states that when her ascites and abdomen is so bloated specially yesterday feels like she could not empty her bladder after paracentesis yesterday she feels better emptying her bladder now. She denies any known previous kidney disease. Previously she takes Excedrin once a day but no other NSAID use. She denies any history of kidney stones. She denies any leg swelling. She admits feeling fatigue. Her blood pressure has been relatively low anywhere between 82-128/40 to 60s. Her weight has gone up from 86.1->95.4 and now down to 91.9 kilograms. Urinalysis yesterday showed negative protein, negative blood with hyaline casts of 24. Past Medical History Cardiac Medical History: Reports: Hyperlipidemia, Hypertension-primary Endocrine Medical History: Reports: Other - Prediabetes Past Surgical History Past Surgical History: Reports: Section, Hysterectomy Social History Information Source: Patient, [facility] Records Lives with: Alone Smoking Status: Never Smoker Electronic Cigarette use?: No Frequency of Alcohol Use: None Hx Recreational Drug Use: No Drugs: None - Advance Directive Resuscitation Status: Full Code Family History Family History: CAD - Mother, DM - Father, Hypertension - Mother Parental Family History Reviewed: Yes Children Family History Reviewed: Yes Sibling(s) Family History Reviewed.: Yes Medication/Allergy Home Medications: Cefdinir 300 mg PO BID 7 Days #14 capsule 09/13/20 Hydrocodone/Acetaminophen [[place] 5-325 mg Tablet] 1 tab PO Q6 PRN 3 Days #12 tablet 09/13/20 Bisoprolol/Hydrochlorothiazide [Bisoprolol-Hctz 2.5-6.25 mg Tb] 1 tab PO DAILY 09/15/20 Levothyroxine Sodium [Levothyroxine] 150 mg PO DAILY 09/15/20 Aspirin [Ecotrin 81 mg EC Tablet] 81 mg PO DAILY 09/16/20 Atorvastatin Calcium [Lipitor 20 mg Tablet] 20 mg PO QHS 09/16/20 Cholecalciferol (Vitamin D3) [Vitamin D3 1000 Unit Tablet] 1,000 unit PO DAILY 09/16/20 Loratadine/Pseudoephedrine [Claritin-D 24 Hour Tablet] 1 each PO DAILY 09/16/20 Multivitamin [Tab-A-Zachariah (Multiple Vitamin) Tablet] 1 tab PO DAILY 09/16/20 Ondansetron HCl [Zofran 8 mg Tablet] 8 mg PO Q4HP PRN 09/16/20 Oxycodone HCl [Oxy-Ir 5 mg Tablet] 5 mg PO QID 09/16/20 Allergies/Adverse Reactions: metformin Adverse Reaction (Verified 09/16/20 06:31) Review of Systems All systems: reviewed and no additional remarkable complaints except as stated Review of Systems: Constitutional: ABSENT: chills, fever(s), headache(s), weight loss; admits fati samuel, decreased appetite and fluid weight gain while here in the hospital. Eyes: ABSENT: visual disturbances Ears: ABSENT: hearing changes Cardiovascular: ABSENT: chest pain, dyspnea on exertion, edema, orthropnea, palpitations Respiratory: ABSENT: cough, hemoptysis; admits shortness of breath which is waxing and waning Gastrointestinal: ABSENT: abdominal pain, constipation, diarrhea, hematemesis, hematochezia, nausea, vomiting; admits abdominal distention Genitourinary: ABSENT: dysuria, hematuria Musculoskeletal: ABSENT: joint swelling Integumentary: ABSENT: rash, wounds Neurological: ABSENT: abnormal gait, abnormal speech, confusion, dizziness, focal weakness, numbness, syncope Psychiatric: ABSENT: anxiety, depression Endocrine: ABSENT: cold intolerance, heat intolerance, polydipsia, polyuria Hematologic/Lymphatic: ABSENT: easy bleeding, easy bruising, lymphadenopathy Physical Exam Vital Signs: Temp Pulse Resp BP Pulse Ox 97.9 F 97 18 92/47 L 93 09/20/20 07:33 09/20/20 07:33 09/20/20 07:33 09/20/20 07:33 09/20/20 07:33 Intake & Output 09/19/20 09/20/20 09/21/20 06:59 06:59 06:59 Intake Total 2006 870 Output Total 550 Balance 1457 870 Weight 95.4 kg 91.9 kg Exam: General appearance: No acute distress, cooperative, well-developed, well-nour ished Head exam: PRESENT: atraumatic, normocephalic Eye exam: PRESENT: Conjunctiva slightly pale , EOMI, PERRLA. ABSENT: conjunctival injection, scleral icterus Mouth exam: PRESENT: moist, neck supple, tongue midline Neck exam: PRESENT: full ROM. ABSENT: carotid bruit, JVD, lymphadenopathy, thyromegaly Respiratory exam: PRESENT: Diminished to auscultation bilaterally. ABSENT: rales, rhonchi, stridor, wheezes Cardiovascular exam: PRESENT: RRR, +S1, +S2. Grade 2/6 systolic murmur Pulses: PRESENT: normal radial pulses, normal dorsalis pedis pulses GI/Abdominal exam: PRESENT: normal bowel sounds, soft. Mild abdominal distention with fluid wave significant for ascites ABSENT: guarding, mass, tenderness Rectal exam: Deferred Extremities exam: PRESENT: full ROM. ABSENT: calf tenderness, pedal edema Musculoskeletal: PRESENT: full ROM. ABSENT: deformity Neurological exam: PRESENT: alert, Awake, Oriented to person, Oriented to place, Oriented to time, reflexes normal, CN II-XII grossly intact. ABSENT: motor sensory deficit Psychiatric exam: PRESENT: appropriate affect, normal mood. ABSENT: homicidal ideation, suicidal ideation Skin exam: PRESENT: intact, dry, warm. ABSENT: rash Results Laboratory Results: 09/19/20 05:30 09/20/20 05:30 09/19/20 09/20/20 15:00 05:30 Sodium 123.6 L 121.7 L Potassium 4.6 5.1 H Chloride 93 L 93 L Carbon Dioxide 17 L 20 L Anion Gap 14 9 BUN 32 H 33 H Creatinine 1.54 H 1.23 Est GFR ( Amer) 40 L 52 L Glucose 172 H 115 H Calcium 8.3 L 8.1 L 09/15/20 09/16/20 09/16/20 17:56 02:51 06:16 Troponin I 0.440 0.381 0.258 Impressions: Chest/Abdomen CTA 09/15/20 17:18 IMPRESSION: Extensive bilateral pulmonary emboli with evidence of right heart strain. Head CT 09/15/20 19:02 IMPRESSION: Small area of heterogeneity in the right parietal cortical/subcortical region. Further evaluation with contrast enhanced MRI is recommended. Given presence of hyperdensity, a subtle hemorrhagic component is not excluded. Head MRI 09/15/20 21:48 IMPRESSION: 1. Increased signal intensity present at the level of the parietal lobe suspected secondary to sequela of subacute versus chronic infarction with associated gliosis, cortical laminar necrosis and sequela of petechial hemorrhage at this site. Please correlate with patient neurological findings and consider short-term interval follow-up for stability. No clearly acute hemorrhage is identified. Venous Doppler Study 09/16/20 00:00 IMPRESSION: 1. DVT within the bilateral peroneal and posterior tibial veins. 2. SVT within the right small saphenous vein. Paracentesis Ultrasound 09/19/20 00:00 IMPRESSION: Successful ultrasound-guided paracentesis. Assessment & Plan - Diagnosis (1) Hyponatremia Is this a current diagnosis for this admission?: Yes Plan: She has a urine sodium less than 5 with urine osmolality 566 indicating a possible prerenal versus hepatorenal-like presentation. Hypothyroidism is currently being treated. I will repeat the patient serum osmolality, urine sodium, urine osmolality, uric acid today. With rapidly accumulating ascites and previously been no response with IV fluids I think the patient's hyponatremia is most likely caused by a hepatorenal-like syndrome with malignancy related ascites. IV fluids is probably not a good idea due to rapidly reaccumulating ascites. I think patient should be treated with albumin infusion intermittently. I will also start some furosemide 40 mg daily. We will do free water restriction to 1 L a day. Instructed and discussed this with patient. Also we need to avoid hypotonic containing IV solutions. I instructed the nurses about this to use saline possible. Her hyponatremia is going to be difficult to control given her condition. Monitor sodium level closely. (2) Acute kidney injury Is this a current diagnosis for this admission?: Yes Plan: This is most likely secondary to acute prerenal azotemia secondary to hepatorenal-like syndrome. She also received IV contrast on admission on 09/15/2020. As her ascites reaccumulate she may also be developing a transient compartment syndrome causing worsening kidney function relieved by large volume paracentesis. Patient is currently nonoliguric. Kidney function improved after paracentesis yesterday. No need of renal replacement therapy. Continue to monitor kidney function. Avoid nephrotoxic medications. (3) Adenocarcinoma of stomach, stage 4 Is this a current diagnosis for this admission?: Yes Plan: Possibly gastric primary. Patient being started on chemotherapy for palliation today. Management per Dr. Bowser. (4) Ascites, malignant Is this a current diagnosis for this admission?: Yes Plan: Secondary to stage IV adenocarcinoma as above. (5) Acute pulmonary embolism with acute cor pulmonale Qualifiers: Pulmonary embolism type: other Qualified Code(s): I26.09 - Other pulmonary embolism with acute cor pulmonale Is this a current diagnosis for this admission?: Yes Plan: On Lovenox. Echocardiogram on 09/16/2020 showed EF of greater than 70% with right ventricle mildly dilated and right systolic function mild to moderately reduced. (6) DVT (deep venous thrombosis) Qualifiers: DVT location: lower extremity Affected thrombotic vein of extremity: peroneal Chronicity: acute Laterality: bilateral Qualified Code(s): I82.453 - Acute embolism and thrombosis of peroneal vein, bilateral Is this a current diagnosis for this admission?: Yes Plan: Status post IVC filter placement on 09/17/2020. (7) Hyperkalemia Is this a current diagnosis for this admission?: Yes Plan: Mild and borderline secondary to JAIDA. (8) Hypothyroidism Is this a current diagnosis for this admission?: Yes Plan: On replacement therapy per hospitalist service. (9) UTI (urinary tract infection) Qualifiers: Urinary tract infection type: acute cystitis Hematuria presence: without hematuria Qualified Code(s): N30.00 - Acute cystitis without hematuria Is this a current diagnosis for this admission?: Yes Plan: Completed antibiotics. - Notes Notes: Thank you very much for this consultation. Discussed with Dr. Degroot.
[2020-09-21] MEDS: ALBUMIN HUMAN 12.5 GM/50 ML RTUINJ IV SCH ×5 (00:05→23:29)
[2020-09-21] MEDS: LEVOTHYROXINE SODIUM 0.15 MG TABLET PO SCH (06:20)
[2020-09-21] MEDS: MORPHINE SULFATE 10 MG/ML INJ IV PRN ×3 (06:21→22:08)
[2020-09-21 07:11] LABS: HEMATOCRIT 30.3 % (36.0-47.0); HEMOGLOBIN 10.1 g/dL (12.0-15.5); MEAN CORPUSCULAR HEMOGLOBIN 25.6 pg (27.0-33.4); MEAN CORPUSCULAR HGB CONC 33.3 g/dL (32.0-36.0); MEAN CORPUSCULAR VOLUME 77 fl (80-97); PLATELET COUNT 563 10^3/uL (150-450); RED BLOOD COUNT 3.94 10^6/uL (3.72-5.28); RED CELL DISTRIBUTION WIDTH 15.9 % (11.5-14.0); WHITE BLOOD COUNT 23.8 10^3/uL (4.0-10.5)
[2020-09-21 07:15] LABS: INTERNATIONAL RATION (INR) 1.07; PROTHROMBIN TIME 14.1 SEC (11.4-15.4)
[2020-09-21 07:16] LABS: PARTIAL THROMBOPLASTIN TIME 33.2 SEC (23.5-35.8)
[2020-09-21 07:31] LABS: ALBUMIN 2.9 g/dL (3.5-5.0); ALKALINE PHOSPHATASE 77 U/L (38-126); ANION GAP 9 (5-19); ASPARTATE AMINO TRANSFERASE 41 U/L (14-36); BILIRUBIN,DIRECT 0.2 mg/dL (0.0-0.4); BILIRUBIN,TOTAL 0.7 mg/dL (0.2-1.3); BLOOD UREA NITROGEN 39 mg/dL (7-20); CALCIUM 8.3 mg/dL (8.4-10.2); CARBON DIOXIDE 19 mmol/L (22-30); CHLORIDE 91 mmol/L (98-107); GLUCOSE 158 mg/dL (75-110); POTASSIUM 5.8 mmol/L (3.6-5.0)
--- NOTE | 2020-09-21 07:39 | PDOC PROGRESS REPORT ---
Subjective Date:: 09/21/20 Subjective:: Had a better night w/ increased morphine. I will start fentanyl patch today. Otherwise pt more distended and planned for para today. Chemo pump continued at present. Will complete chemo tomorrow by around noon or so. Reason For Visit: ABDOMONAL MASS,PULMONARY EMBOLISM,BRAIN LESIONS, Physical Exam Vital Signs: Temp Pulse Resp BP Pulse Ox 98.8 F 91 18 106/54 L 96 09/21/20 04:00 09/21/20 07:00 09/21/20 04:00 09/21/20 04:00 09/21/20 04:00 Intake & Output 09/20/20 09/21/20 09/22/20 06:59 06:59 06:59 Intake Total 870 1596.8 Output Total 500 Balance 870 1096.8 Weight 91.9 kg General appearance: PRESENT: no acute distress, well-developed, well-nourished Head exam: PRESENT: atraumatic, normocephalic Eye exam: PRESENT: conjunctiva pink, EOMI, PERRLA. ABSENT: scleral icterus Ear exam: PRESENT: normal external ear exam Mouth exam: PRESENT: moist, tongue midline Neck exam: ABSENT: carotid bruit, JVD, lymphadenopathy, thyromegaly Respiratory exam: PRESENT: clear to auscultation xander. ABSENT: rales, rhonchi, wheezes Cardiovascular exam: PRESENT: RRR. ABSENT: diastolic murmur, rubs, systolic murmur Pulses: PRESENT: normal dorsalis pedis pul Vascular exam: PRESENT: normal capillary refill GI/Abdominal exam: PRESENT: normal bowel sounds, soft. ABSENT: distended, guarding, mass, organolmegaly, rebound, tenderness Rectal exam: PRESENT: deferred Extremities exam: PRESENT: full ROM. ABSENT: calf tenderness, clubbing, pedal edema Neurological exam: PRESENT: alert, awake, oriented to person, oriented to place, oriented to time, oriented to situation, CN II-XII grossly intact. ABSENT: motor sensory deficit Psychiatric exam: PRESENT: appropriate affect, normal mood. ABSENT: homicidal ideation, suicidal ideation Skin exam: PRESENT: dry, intact, warm. ABSENT: cyanosis, rash Results Laboratory Results: 09/20/20 09/20/20 09/20/20 05:30 05:30 15:30 Serum Osmolality 265 L Uric Acid 9.0 H Urine Osmolality 567 09/15/20 22:00 Blood Blood Culture - Final NO GROWTH IN 5 DAYS 09/15/20 21:45 Blood Blood Culture - Final NO GROWTH IN 5 DAYS 09/15/20 09/16/20 09/16/20 17:56 02:51 06:16 Troponin I 0.440 0.381 0.258 Impressions: Chest/Abdomen CTA 09/15/20 17:18 IMPRESSION: Extensive bilateral pulmonary emboli with evidence of right heart strain. Head CT 09/15/20 19:02 IMPRESSION: Small area of heterogeneity in the right parietal cortical/subcortical region. Further evaluation with contrast enhanced MRI is recommended. Given presence of hyperdensity, a subtle hemorrhagic component is not excluded. Head MRI 09/15/20 21:48 IMPRESSION: 1. Increased signal intensity present at the level of the parietal lobe suspected secondary to sequela of subacute versus chronic infarction with associated gliosis, cortical laminar necrosis and sequela of petechial hemorrhage at this site. Please correlate with patient neurological findings and consider short-term interval follow-up for stability. No clearly acute hemorrhage is identified. Venous Doppler Study 09/16/20 00:00 IMPRESSION: 1. DVT within the bilateral peroneal and posterior tibial veins. 2. SVT within the right small saphenous vein. Paracentesis Ultrasound 09/19/20 00:00 IMPRESSION: Successful ultrasound-guided paracentesis. Assessment & Plan - Diagnosis (1) Pulmonary embolism, bilateral Is this a current diagnosis for this admission?: Yes Plan: cont anticoag as ordered, held for para today, restart after para (2) Ascites, malignant Is this a current diagnosis for this admission?: Yes Plan: Send cytology on today's paracentesis (3) Adenocarcinoma of stomach, stage 4 Is this a current diagnosis for this admission?: Yes Plan: FOLFOX cycle #1 start yesterday. Pump stop tomorrow. (4) Physical deconditioning Is this a current diagnosis for this admission?: Yes Plan: 2nd disease state. Start PT (5) Pain, neoplasm-related Is this a current diagnosis for this admission?: Yes Plan: morphine IV increased, start fentanyl today - Time Time Spent with patient: 35 or more minutes
[2020-09-21] MEDS ORDERED: FENTANYL 25 MCG/HR PATCH.TD72 TD SCH (08:00)
--- NOTE | 2020-09-21 08:30 | RADIOLOGY REPORT (SQ) ---
EXAM DESCRIPTION: CHEST SINGLE VIEW IMAGES COMPLETED DATE/TIME: 09/20/2020 10:30 pm REASON FOR STUDY: dyspnea COMPARISON: 09/13/2020 EXAM PARAMETERS: NUMBER OF VIEWS: One view. TECHNIQUE: Single frontal radiographic view of the chest acquired. RADIATION DOSE: NA LIMITATIONS: None. FINDINGS: LUNGS AND PLEURA: There is blunting of left costophrenic angle consistent with pleural thi ckening or small effusion. Minimal left basilar atelectasis. No pneumothorax or focal consolidation . MEDIASTINUM AND HILAR STRUCTURES: No masses. Contour normal. HEART AND VASCULAR STRUCTURES: Heart normal in size. Normal vasculature. BONES: No acute findings. HARDWARE: None in the chest. OTHER: No other significant finding. IMPRESSION: Suspect small left effusion with minimal left basilar atelectasis. TECHNICAL DOCUMENTATION: JOB ID: [id number] 2010 [employer]- All Rights Reserved Reading location - IP/workstation name: [email or web address]
[2020-09-21] MEDS: MULTIVITAMIN TABLET PO SCH (09:28)
[2020-09-21] MEDS: FAMOTIDINE 20 MG TABLET PO SCH ×2 (09:28→22:09)
[2020-09-21] MEDS: FUROSEMIDE 40 MG TABLET PO SCH (09:28)
[2020-09-21] MEDS: CHOLECALCIFEROL (D3) 1,000 UNIT (25 MCG) TABLET PO SCH (09:28)
[2020-09-21] MEDS: ASPIRIN 81 MG TABLET, ENT COATED PO SCH (09:28)
[2020-09-21] MEDS: SENNOSIDES/DOCUSATE 8.6-50 MG 1 EACH TABLET PO SCH (11:54)
--- NOTE | 2020-09-21 15:34 | RADIOLOGY REPORT (SQ) ---
EXAM DESCRIPTION: U/S ABD PARACENTESIS IMAGES COMPLETED DATE/TIME: 09/21/2020 3:25 pm REASON FOR STUDY: Rapidly re-accumulating peritoneal fluid COMPARISON 09/19/2020 LIMITATIONS: None. PROCEDURE: After obtaining informed consent, the patient was brought to the ultrasound suite. The p rocedure was performed with the patient on a gurney. Ultrasound was used to identify a prominent poc ket of ascites in the right lower quadrant. An appropriate access site was selected. The patient wa s prepped and draped in usual sterile fashion. The access site was anesthetized with 6 mL 1% lidoca ine. A [id number] needle was advanced into the fluid. After aspiration of fluid the needle, th e catheter was advanced off the needle into the fluid. A total of 3,500 mL of serosanguineous fluid was removed. The patient tolerated the procedure well left the department in satisfactory condition. IMPRESSION: Successful ultrasound-guided paracentesis COMMENT: Patient medication list reviewed: Yes- Quality ID# [id number]:Eligible professional attests to doc umenting in the medical record they obtained, updated, or reviewed the patient's current medications. TECHNICAL DOCUMENTATION: JOB ID: [id number] 2010 [employer] All Rights Reserved Reading location - IP/workstation name: [email or web address]
[2020-09-21 19:09] LABS: BLOOD UREA NITROGEN 46 mg/dL (7-20); CALCIUM 8.3 mg/dL (8.4-10.2); CARBON DIOXIDE 20 mmol/L (22-30); CHLORIDE 87 mmol/L (98-107); GLUCOSE 152 mg/dL (75-110); POTASSIUM 5.9 mmol/L (3.6-5.0)
[2020-09-21 19:10] LABS: ANION GAP 12 (5-19)
[2020-09-21] MEDS ORDERED: NORMAL SALINE 1000 ML 1,000 ML IV PRN (19:39)
--- NOTE | 2020-09-21 19:55 | PDOC PROGRESS REPORT ---
Subjective Date:: 09/21/20 Subjective:: Patient had her paracentesis today. Feels better now. She states she had a com fortable night with the morphine. She began to have discomfort after lunch. She now has a fentanyl 25 mcg patch with IV morphine available as needed. Another 3.5 L of fluid was removed. Reason For Visit: ABDOMONAL MASS,PULMONARY EMBOLISM,BRAIN LESIONS, Physical Exam Vital Signs: Temp Pulse Resp BP Pulse Ox 97.3 F 91 18 113/51 L 95 09/21/20 16:50 09/21/20 16:50 09/21/20 16:50 09/21/20 16:50 09/21/20 16:50 Intake & Output 09/20/20 09/21/20 09/22/20 06:59 06:59 06:59 Intake Total 870 1596.8 930 Output Total 500 Balance 870 1096.8 930 Weight 91.9 kg General appearance: PRESENT: cooperative, mild distress, well-developed Respiratory exam: PRESENT: clear to auscultation xander - Anteriorly, symmetrical, unlabored. ABSENT: rales, rhonchi, tachypnea, wheezes Cardiovascular exam: PRESENT: RRR, +S1, +S2. ABSENT: bradycardia, diastolic murmur, irregular rhythm, systolic murmur, tachycardia GI/Abdominal exam: PRESENT: distended, normal bowel sounds, soft, tenderness - Mild nonspecific tenderness Rectal exam: PRESENT: deferred Musculoskeletal exam: PRESENT: ambulatory, normal inspection. ABSENT: deformi ty, dislocation Neurological exam: PRESENT: alert, awake, oriented to person, oriented to place, oriented to time, oriented to situation, CN II-XII grossly intact. ABSENT: al tered Psychiatric exam: PRESENT: anxious. ABSENT: agitated Focused psych exam: ABSENT: delusional, paranoid, restlessness Results Laboratory Results: 09/21/20 06:33 09/21/20 17:41 09/15/20 09/15/20 09/21/20 13:30 13:30 06:33 WBC RBC Hgb Hct MCV MCH MCHC RDW Plt Count Sodium 119.3 L* Potassium 5.8 H Chloride 91 L Carbon Dioxide 19 L Anion Gap 9 BUN 39 H Creatinine 1.48 H Est GFR ( Amer) 42 L Glucose 158 H Calcium 8.3 L Total Bilirubin 0.7 AST 41 H Alkaline Phosphatase 77 Total Protein 5.0 L Albumin 2.9 L Fluid Total Protein 3.8 Fluid Albumin 2.3 09/21/20 09/21/20 06:33 17:41 WBC 23.8 H RBC 3.94 Hgb 10.1 L Hct 30.3 L MCV 77 L MCH 25.6 L MCHC 33.3 RDW 15.9 H Plt Count 563 H Sodium 118.9 L* Potassium 5.9 H Chloride 87 L Carbon Dioxide 20 L Anion Gap 12 BUN 46 H Creatinine 2.00 H Est GFR ( Amer) 29 L Glucose 152 H Calcium 8.3 L Total Bilirubin AST Alkaline Phosphatase Total Protein Albumin Fluid Total Protein Fluid Albumin 09/15/20 22:00 Blood Blood Culture - Final NO GROWTH IN 5 DAYS 09/15/20 21:45 Blood Blood Culture - Final NO GROWTH IN 5 DAYS 09/15/20 09/16/20 09/16/20 17:56 02:51 06:16 Troponin I 0.440 0.381 0.258 Impressions: Chest/Abdomen CTA 09/15/20 17:18 IMPRESSION: Extensive bilateral pulmonary emboli with evidence of right heart strain. Head CT 09/15/20 19:02 IMPRESSION: Small area of heterogeneity in the right parietal cortical/subcortical region. Further evaluation with contrast enhanced MRI is recommended. Given presence of hyperdensity, a subtle hemorrhagic component is not excluded. Head MRI 09/15/20 21:48 IMPRESSION: 1. Increased signal intensity present at the level of the parietal lobe suspected secondary to sequela of subacute versus chronic infarction with associated gliosis, cortical laminar necrosis and sequela of petechial hemorrhage at this site. Please correlate with patient neurological findings and consider short-term interval follow-up for stability. No clearly acute hemorrhage is identified. Venous Doppler Study 09/16/20 00:00 IMPRESSION: 1. DVT within the bilateral peroneal and posterior tibial veins. 2. SVT within the right small saphenous vein. Chest X-Ray 09/20/20 00:00 IMPRESSION: Suspect small left effusion with minimal left basilar atelectasis. Paracentesis Ultrasound 09/21/20 00:00 IMPRESSION: Successful ultrasound-guided paracentesis Assessment and Plan - Diagnosis (1) Adenocarcinoma of stomach, stage 4 Is this a current diagnosis for this admission?: Yes (2) Hyponatremia Is this a current diagnosis for this admission?: Yes (3) Ascites, malignant Is this a current diagnosis for this admission?: Yes (4) Acute pulmonary embolism with acute cor pulmonale Qualifiers: Pulmonary embolism type: other Qualified Code(s): I26.09 - Other pulmonary embolism with acute cor pulmonale Is this a current diagnosis for this admission?: Yes (5) DVT (deep venous thrombosis) Qualifiers: DVT location: lower extremity Affected thrombotic vein of extremity: peroneal Chronicity: acute Laterality: bilateral Qualified Code(s): I82.453 - Acute embolism and thrombosis of peroneal vein, bilateral Is this a current diagnosis for this admission?: Yes (6) Acute kidney injury Is this a current diagnosis for this admission?: Yes (7) Acute respiratory failure with hypoxia Is this a current diagnosis for this admission?: Yes (8) Elevated troponin Is this a current diagnosis for this admission?: Yes (9) UTI (urinary tract infection) Qualifiers: Urinary tract infection type: acute cystitis Hematuria presence: without hematuria Qualified Code(s): N30.00 - Acute cystitis without hematuria Is this a current diagnosis for this admission?: Yes (10) Pain of metastatic malignancy Is this a current diagnosis for this admission?: Yes - Plan Summary Summary: (1) Adenocarcinoma of stomach, stage 4 Is this a current diagnosis for this admission?: Yes Plan: New diagnosis. Cytology from initial paracentesis has resulted today. Has omental spread. Dr. Bowser initiating chemo tomorrow. (2) Hyponatremia Is this a current diagnosis for this admission?: Yes Plan: Worsened yesterday but seems to be improving now. Wonder if heparin infusion solvent could have played a role in worsening her sodium yesterday. Serial BMPs. I consulted Nephrology and discussed case jack in light of JAIDA - Nephro to see tomorrow. (3) Ascites, malignant Is this a current diagnosis for this admission?: Yes Plan: S/P paracentesis on 09/15 - 4.7L removed S/p therapeutic paracentestis 09/19 - 3.8 L removed. 37.5g of albumin given. (4) Acute pulmonary embolism with acute cor pulmonale Qualifiers: Pulmonary embolism type: other Qualified Code(s): I26.09 - Other pulmonary embolism with acute cor pulmonale Is this a current diagnosis for this admission?: Yes Plan: Submassive PE. CTA shows extensive bilateral pulmonary embolism in the main arteries stretching all the way to the subsegmental branches of lower lobes with evidence of right heart strain on CT and RV dysfunction on echocardiogram. Patient is not a candidate for TPA. Also not a candidate for other aggressive advanced measures. Initially on heparin gtt. Now on Lovenox shots which she will be discharged with. (5) DVT (deep venous thrombosis) Qualifiers: DVT location: lower extremity Affected thrombotic vein of extremity: peroneal Chronicity: acute Laterality: bilateral Qualified Code(s): I82.453 - Acute embolism and thrombosis of peroneal vein, bilateral Is this a current diagnosis for this admission?: Yes Plan: IVC filter placed on 09/17/2020 [[facility] due to Submassive PE and likely fatality from further embolic event. C/w AC. (6) Acute kidney injury Is this a current diagnosis for this admission?: Yes Plan: Suspect her 3rd spacing of fluid may have left her intravascular depleted. No obstruction on CT. Nephrology has been consulted. (7) Acute respiratory failure with hypoxia Is this a current diagnosis for this admission?: Yes Plan: Secondary to PE. Attempt O2 wean as tolerated. (8) UTI (urinary tract infection) Qualifiers: Urinary tract infection type: acute cystitis Hematuria presence: without hematuria Qualified Code(s): N30.00 - Acute cystitis without hematuria Is this a current diagnosis for this admission?: Yes Plan: Diagnosed as outpt. Completed IV abx course yesterday. (9) Hypertension Is this a current diagnosis for this admission?: Yes Plan: Hypertensive med remains on hold since systolic BPs have been soft. (10) Elevated troponin Is this a current diagnosis for this admission?: Yes Plan: Secondary to right heart strain from PE. (11) pain of metastatic malignancy 09/20/2020 I saw the patient twice today. The evening of visit reveals a definite increase in ascites from this morning. The patient is having significant discomfort. In addition to the abdominal pain she is having back pain. Increased difficulty breathing based on the ascites. It is difficult for her to find a comfortable position. The paracentesis yesterday yielded 3800 mL of fluid. She received 12.5 g of albumin before and after. With the rapid reaccumulation will need to give more albumin. I will give her 25 g tonight and then I have ordered 25 g for the morning as well as repeat paracentesis. I will give another 25 g after the procedure. Unfortunately there is no easy answer for this. I did discuss this with the patient. She does understand that at some point the pain medications can suppress her breathing. She accepted this and stated that getting comfortable was the most important thing right now. Metastatic cancer likely gastric primary-we did review the fact that the chemotherapy was palliative. I told her we will need to try and find a middle ground with regard to fluid accumulation and sodium levels. Right now she is on a 1 L fluid restriction. We will see how this works. Dr. Preciado is consulting for the hyponatremia as well. Continue oxygen supplementation for the respiratory failure with hypoxia that is secondary to pulmonary emboli. As I have scheduled a repeat paracentesis in the morning I am holding tonight's Lovenox as well as tomorrow morning's Lovenox. The patient is having significant pain. 2 mg of morphine was completely ineffective. We will give an additional 4 mg now and change her dosing to 5 mg every 4 hours as needed. She clearly is anxious and this is understandable given her circumstance. I have also ordered lorazepam as needed. We will trial trazodone for sleep. The BUN and creatinine are slowly improving. We will recheck labs tomorrow. Appreciate Dr. Preciado's input. Post procedure we will continue Lovenox for DVTs and pulmonary emboli. Will discuss with Dr. Bowser regarding ongoing outpatient anticoagulation. As noted above the patient does have an IVC filter at this time. I did order a chest x- ray to rule out pleural effusions. I did explain to the patient that the combination of her pulmonary emboli and ascites are both contributing to her difficulty breathing. 09/21/2020 The patient had another 3.5 L of ascites removed today. Once again she feels better. Unfortunately the fluid has been reaccumulating. I am going to give larger doses of albumin to see if it helps stem the flow of fluid into the abdomen. Her hyponatremia is worsening. I discussed this with nephrology. She is going to get 50 g of albumin tonight and 1 L of normal saline. We will recheck chemistries tomorrow. She has an extremely difficult balance regarding sodium, renal function and ascites. We did have a long talk with the patient and we reviewed the difference between full code, DNR and comfort measures. I explained that at this point a DNR would be most reasonable. If she does arrest we would only be trying to resuscitate her to from her cancer anyway. She is adamant that she does not want any discomfort. She had quite a bit of abdominal pain yesterday. We discussed the approach with comfort measures. I told her that I would like to try some albumin and 1 L of fluid tonight and recheck her labs tomorrow. If you continue to lose ground with renal function and sodium I am afraid that there is little that we would be able to do to reverse her decline. Continue current oxygen supplementation at this time. She was started on a fentanyl patch 25 mcg and she still has IV morphine available if needed. Trazodone is available for sleep at this time. She still remains on anticoagulation for the pulmonary emboli. Unfortunately her right heart failure is not helping. For now we will change her CODE STATUS to DNR. Recheck laboratory studies in the morning and review with Dr. Bowser, Dr. Preciado and the patient. - Time Time Spent with patient: 25-34 minutes Medications reviewed and adjusted accordingly: Yes Anticipated Discharge Disposition: Unknown Anticipated Discharge Timeframe: Unknown
--- NOTE | 2020-09-21 19:59 | ADVANCED CARE ---
- Diagnosis (1) Adenocarcinoma of stomach, stage 4 Diagnosis Current: Yes (2) Hyponatremia Diagnosis Current: Yes (3) Ascites, malignant Diagnosis Current: Yes (4) Acute pulmonary embolism with acute cor pulmonale Diagnosis Current: Yes (5) DVT (deep venous thrombosis) Diagnosis Current: Yes (6) Acute kidney injury Diagnosis Current: Yes (7) Acute respiratory failure with hypoxia Diagnosis Current: Yes (8) Elevated troponin Diagnosis Current: Yes (9) UTI (urinary tract infection) Diagnosis Current: Yes (10) Pain of metastatic malignancy Diagnosis Current: Yes Attendance: Discussion was held at the bedside with the patient, myself and I believe her brother. Resuscitation Status: Do Not Resuscitate Discussion: I had a lengthy discussion with the patient and I believe her brother. I reviewed the lack of progress thus far. She has had 3 paracenteses over the last week with a total of almost 12 L of fluid removed. It is a malignant effusion. With repeated procedures there is also concern for infection. The patient was emphatic about not wanting to have any pain. I told her that there are several unknowns at this time. The major unknowns are whether or not we can stem the accumulation of ascites and how her renal function will hold up at this time. I did review comfort measures and she is seriously considering stopping all treatment. I did tell her to afford may another day or so so that the care team can try other treatment measures. If these fail then I agree comfort measures would not be unreasonable at this time. We are going to have another conference tomorrow. I told her that if she chose a time between 10 AM and noon we can have discussion at the bedside with his many family members on conference call as wish to participate. Care Planning Goals: We did change her CODE STATUS to DO NOT RESUSCITATE tonight. She does have an understanding of comfort measures as well. Document(s) Completed: None Time Spent: 20 minutes
[2020-09-21] MEDS ORDERED: NORMAL SALINE 1000 ML 1,000 ML IV ONE (20:20)
[2020-09-21] MEDS ORDERED: SODIUM POLYSTYRENE SULFONATE 15 GM/60 ML PO ONE (22:00)
[2020-09-21] MEDS: ENOXAPARIN SODIUM INJ 100 MG/1 ML DISP.SYRIN SUBCUT SCH (22:09)
[2020-09-21] MEDS: TRAZODONE HCL 50 MG TABLET PO PRN (22:09)
[2020-09-21] MEDS: ATORVASTATIN CALCIUM 20 MG TABLET PO SCH (22:09)
[2020-09-22] MEDS: ALBUMIN HUMAN 12.5 GM/50 ML RTUINJ IV SCH ×2 (01:00→02:20)
--- NOTE | 2020-09-22 01:00 | PDOC PROGRESS REPORT ---
Subjective Date:: 09/21/20 Subjective:: Reviewed events since last night with regards to increasing abdominal pain and reaccumulation of her ascites. I reviewed discussions of Dr. Degroot with patient. When I see the patient this morning she is more comfortable and he states that her pain is better because she is now started on a fentanyl patch. She said that her breathing is also improved. Her abdominal girth has significantly increased again for the past 24 hours. She is scheduled for paracentesis this afternoon. Her brother is at bedside. Reason For Visit: ABDOMONAL MASS,PULMONARY EMBOLISM,BRAIN LESIONS, Physical Exam Vital Signs: Temp Pulse Resp BP Pulse Ox 97.6 F 93 18 122/64 97 09/21/20 08:28 09/21/20 08:28 09/21/20 08:28 09/21/20 08:28 09/21/20 08:28 Intake & Output 09/20/20 09/21/20 09/22/20 06:59 06:59 06:59 Intake Total 870 1596.8 50 Output Total 500 Balance 870 1096.8 50 Weight 91.9 kg Exam: General appearance: PRESENT: no acute distress, cooperative, well-developed, well-nourished Head exam: PRESENT: atraumatic, normocephalic Eye exam: PRESENT: conjunctiva slightly pale, PERRLA. ABSENT: scleral icterus Neck exam: ABSENT: JVD Respiratory exam: PRESENT: Diminished breath sounds. ABSENT: crackles, rales, rhonchi, unlabored, wheezes Cardiovascular exam: PRESENT: Regular rate rhythm -+S1, +S2. ABSENT: diastolic murmur, systolic murmur GI/Abdominal exam: PRESENT: normal bowel sounds, soft. Positive abdominal diste ntion with ascites which is worse than in the past 24 hours ABSENT: guarding, mass, tenderness Extremities exam: ABSENT: No edema Neurological exam: PRESENT: alert, awake, oriented to person, place and time. Skin exam: PRESENT: dry, warm, Results Laboratory Results: 09/21/20 06:33 09/21/20 06:33 09/20/20 09/20/20 09/20/20 05:30 05:30 15:30 WBC RBC Hgb Hct MCV MCH MCHC RDW Plt Count Sodium Potassium Chloride Carbon Dioxide Anion Gap BUN Creatinine Est GFR ( Amer) Glucose Serum Osmolality 265 L Uric Acid 9.0 H Calcium Total Bilirubin AST Alkaline Phosphatase Total Protein Albumin Urine Osmolality 567 09/21/20 09/21/20 06:33 06:33 WBC 23.8 H RBC 3.94 Hgb 10.1 L Hct 30.3 L MCV 77 L MCH 25.6 L MCHC 33.3 RDW 15.9 H Plt Count 563 H Sodium 119.3 L* Potassium 5.8 H Chloride 91 L Carbon Dioxide 19 L Anion Gap 9 BUN 39 H Creatinine 1.48 H Est GFR ( Amer) 42 L Glucose 158 H Serum Osmolality Uric Acid Calcium 8.3 L Total Bilirubin 0.7 AST 41 H Alkaline Phosphatase 77 Total Protein 5.0 L Albumin 2.9 L Urine Osmolality 09/15/20 22:00 Blood Blood Culture - Final NO GROWTH IN 5 DAYS 09/15/20 21:45 Blood Blood Culture - Final NO GROWTH IN 5 DAYS 09/15/20 09/16/20 09/16/20 17:56 02:51 06:16 Troponin I 0.440 0.381 0.258 Impressions: Chest/Abdomen CTA 09/15/20 17:18 IMPRESSION: Extensive bilateral pulmonary emboli with evidence of right heart strain. Head CT 09/15/20 19:02 IMPRESSION: Small area of heterogeneity in the right parietal cortical/subcortical region. Further evaluation with contrast enhanced MRI is recommended. Given presence of hyperdensity, a subtle hemorrhagic component is not excluded. Head MRI 09/15/20 21:48 IMPRESSION: 1. Increased signal intensity present at the level of the parietal lobe suspected secondary to sequela of subacute versus chronic infarction with associated gliosis, cortical laminar necrosis and sequela of petechial hemorrhage at this site. Please correlate with patient neurological findings and consider short-term interval follow-up for stability. No clearly acute hemorrhage is identified. Venous Doppler Study 09/16/20 00:00 IMPRESSION: 1. DVT within the bilateral peroneal and posterior tibial veins. 2. SVT within the right small saphenous vein. Paracentesis Ultrasound 09/19/20 00:00 IMPRESSION: Successful ultrasound-guided paracentesis. Chest X-Ray 09/20/20 00:00 IMPRESSION: Suspect small left effusion with minimal left basilar atelectasis. Assessment & Plan - Diagnosis (1) Hyponatremia Is this a current diagnosis for this admission?: Yes Plan: She has a urine sodium less than 5 with urine osmolality 566 indicating a pos sible prerenal versus hepatorenal-like presentation. Hypothyroidism is currently being treated. Patient sodium level is worse today despite everything that we did yesterday with fluid restriction, albumin infusion, paracentesis and even furosemide. Patient might still be intravascularly dry despite reaccumulation of ascites. I explained to the patient and her brother at bedside that at this point it would really be very difficult to manage her hyponatremia given her ascites. I will recheck her sodium level after paracentesis today to see if make any difference. If not any better I will try to give her normal saline of at least 1 L. At this point we are running out of options with regards to her treatment with hyponatremia and her overall condition. (2) Acute kidney injury Is this a current diagnosis for this admission?: Yes Plan: This is most likely secondary to acute prerenal azotemia secondary to hepatorenal-like syndrome. She also received IV contrast on admission on 09/15/2020. As her ascites re-accumulates she may also be developing a transient compartment syndrome causing worsening kidney function relieved by large volume paracentesis. Patient is currently non-oliguric. Kidney function improved after paracentesis yesterday but is currently mildly worse again. No need of renal replacement therapy. Continue to monitor kidney function. Avoid nephrotoxic medications. Given the patient's overall condition, she is not a candidate for renal replacement therapy. (3) Adenocarcinoma of stomach, stage 4 Is this a current diagnosis for this admission?: Yes Plan: Possibly gastric primary. Patient being started on chemotherapy for palliation yesterday. Management per Dr. Bowser. (4) Ascites, malignant Is this a current diagnosis for this admission?: Yes Plan: Secondary to stage IV adenocarcinoma as above. Unfortunately her ascites has been reaccumulating as fast as it is being removed. This is not a good prognostic indicator nor is this sustainable. (5) Acute pulmonary embolism with acute cor pulmonale Qualifiers: Pulmonary embolism type: other Qualified Code(s): I26.09 - Other pulmonary embolism with acute cor pulmonale Is this a current diagnosis for this admission?: Yes Plan: On Lovenox. Echocardiogram on 09/16/2020 showed EF of greater than 70% with right ventricle mildly dilated and right systolic function mild to moderately reduced. (6) DVT (deep venous thrombosis) Qualifiers: DVT location: lower extremity Affected thrombotic vein of extremity: peroneal Chronicity: acute Laterality: bilateral Qualified Code(s): I82.453 - Acute embolism and thrombosis of peroneal vein, bilateral Is this a current diagnosis for this admission?: Yes Plan: Status post IVC filter placement on 09/17/2020. (7) Hyperkalemia Is this a current diagnosis for this admission?: Yes Plan: Secondary to JAIDA. Worse today. If repeat BMP after paracentesis still shows hyperkalemia, will give the patient Kayexalate. (8) Hypothyroidism Is this a current diagnosis for this admission?: Yes Plan: On replacement therapy per hospitalist service. (9) UTI (urinary tract infection) Qualifiers: Urinary tract infection type: acute cystitis Hematuria presence: without hematuria Qualified Code(s): N30.00 - Acute cystitis without hematuria Is this a current diagnosis for this admission?: Yes Plan: Completed antibiotics. - Notes Notes: Overall prognosis is grim. Treatment options are limited. Discussed with Dr. Degroot today. At one point, hospice might be an appropriate plan. - Time Time with patient: 15-25 minutes
[2020-09-22] MEDS: LEVOTHYROXINE SODIUM 0.15 MG TABLET PO SCH (06:46)
[2020-09-22 07:02] LABS: HEMATOCRIT 27.5 % (36.0-47.0); HEMOGLOBIN 9.3 g/dL (12.0-15.5); MEAN CORPUSCULAR HGB CONC 33.9 g/dL (32.0-36.0); MEAN CORPUSCULAR VOLUME 77 fl (80-97); RED BLOOD COUNT 3.59 10^6/uL (3.72-5.28); RED CELL DISTRIBUTION WIDTH 15.9 % (11.5-14.0)
[2020-09-22 07:23] LABS: ALBUMIN 2.9 g/dL (3.5-5.0); ALKALINE PHOSPHATASE 57 U/L (38-126); ANION GAP 10 (5-19); ASPARTATE AMINO TRANSFERASE 78 U/L (14-36); BILIRUBIN,DIRECT 0.3 mg/dL (0.0-0.4); BILIRUBIN,TOTAL 0.8 mg/dL (0.2-1.3); BLOOD UREA NITROGEN 51 mg/dL (7-20); CARBON DIOXIDE 20 mmol/L (22-30); CHLORIDE 91 mmol/L (98-107); GLUCOSE 138 mg/dL (75-110); POTASSIUM 5.6 mmol/L (3.6-5.0); TOTAL PROTEIN 4.9 g/dL (6.3-8.2)
[2020-09-22 07:51] LABS: APPEARANCE,URINE SLIGHTLY-CLOUDY; BILIRUBIN,URINE NEGATIVE (NEGATIVE); COLOR,URINE YELLOW; GLUCOSE, URINE NEGATIVE (NEGATIVE); KETONES,URINE NEGATIVE (NEGATIVE); LEUKOCYTE ESTERASE,URINE TRACE (NEGATIVE); NITRITE,URINE NEGATIVE (NEGATIVE); PROTEIN,URINE NEGATIVE (NEGATIVE); URINE SPECIFIC GRAVITY 1.017; UROBILINOGEN,URINE NEGATIVE mg/dL (<2.0)
[2020-09-22 09:32] LABS: ABSOLUTE LYMPHOCYTES# (MANUAL) 0.5 10^3/uL (0.5-4.7); ABSOLUTE MONOCYTES # (MANUAL) 0.6 10^3/uL (0.1-1.4); BAND NEUTROPHILS % (MANUAL) 1 % (3-5); BASOPHILS % (MANUAL) 0 % (0-2); EOSINOPHILS % (MANUAL) 1 % (0-6); LYMPHOCYTES % (MANUAL) 3 % (13-45); MONOCYTES % (MANUAL) 4 % (3-13); SEGMENTED NEUTROPHILS % (MAN) 91 % (42-78); TOTAL CELLS COUNTED 100
[2020-09-22 09:44] LABS: POLYCHROMASIA SLIGHT
[2020-09-22 09:45] LABS: ANISOCYTOSIS 1+; HYPOCHROMASIA SLIGHT
[2020-09-22 09:46] LABS: POIKILOCYTOSIS 1+
[2020-09-22 09:47] LABS: BURR CELLS 1+; OVALOCYTES 2+
[2020-09-22 09:49] LABS: PLATELET CLUMPS PRESENT; PLATELET COMMENT INCREASED; PLATELET LARGE PRESENT
[2020-09-22 09:50] LABS: PLATELET COUNT 469 10^3/uL (150-450)
[2020-09-22] MEDS ORDERED: HYDROMORPHONE HCL INJ/PF 2 MG/ML AMPULE IV ONE (10:00)
--- NOTE | 2020-09-22 10:01 | PDOC PROGRESS REPORT ---
Subjective Date:: 09/22/20 Subjective:: Today we had a long discussion with family, hospitalist team, all of whom were at bedside, the patient herself really wants to be comfort care. She does not want to pursue any further therapy. We will discontinue treatment today. Plan on changing morphine to Dilaudid increasing fentanyl patch and trying to keep her comfortable. Reason For Visit: ABDOMONAL MASS,PULMONARY EMBOLISM,BRAIN LESIONS, Physical Exam Vital Signs: Temp Pulse Resp BP Pulse Ox 97.7 F 92 18 105/54 L 95 09/22/20 08:32 09/22/20 07:00 09/22/20 04:34 09/22/20 04:34 09/22/20 04:34 Intake & Output 09/21/20 09/22/20 09/23/20 06:59 06:59 06:59 Intake Total 1596.8 1450 Output Total 500 420 Balance 1096.8 1030 Weight 91.4 kg General appearance: PRESENT: no acute distress, well-developed, well-nourished Head exam: PRESENT: atraumatic, normocephalic Eye exam: PRESENT: conjunctiva pink, EOMI, PERRLA. ABSENT: scleral icterus Ear exam: PRESENT: normal external ear exam Mouth exam: PRESENT: moist, tongue midline Neck exam: ABSENT: carotid bruit, JVD, lymphadenopathy, thyromegaly Respiratory exam: PRESENT: clear to auscultation xander. ABSENT: rales, rhonchi, wheezes Cardiovascular exam: PRESENT: RRR. ABSENT: diastolic murmur, rubs, systolic murmur Pulses: PRESENT: normal dorsalis pedis pul Vascular exam: PRESENT: normal capillary refill GI/Abdominal exam: PRESENT: normal bowel sounds, soft. ABSENT: distended, guarding, mass, organolmegaly, rebound, tenderness Rectal exam: PRESENT: deferred Extremities exam: PRESENT: full ROM. ABSENT: calf tenderness, clubbing, pedal edema Neurological exam: PRESENT: alert, awake, oriented to person, oriented to place, oriented to time, oriented to situation, CN II-XII grossly intact. ABSENT: motor sensory deficit Psychiatric exam: PRESENT: appropriate affect, normal mood. ABSENT: homicidal ideation, suicidal ideation Skin exam: PRESENT: dry, intact, warm. ABSENT: cyanosis, rash Results Laboratory Results: 09/22/20 06:36 09/22/20 06:36 09/15/20 09/15/20 09/21/20 13:30 13:30 17:41 WBC RBC Hgb Hct MCV MCH MCHC RDW Plt Count Seg Neutrophils % Sodium 118.9 L* Potassium 5.9 H Chloride 87 L Carbon Dioxide 20 L Anion Gap 12 BUN 46 H Creatinine 2.00 H Est GFR ( Amer) 29 L Glucose 152 H Calcium 8.3 L Total Bilirubin AST Alkaline Phosphatase Total Protein Albumin Urine Color Urine Appearance Urine pH Ur Specific [place] Urine Protein Urine Glucose (UA) Urine Ketones Urine Blood Urine Nitrite Ur Leukocyte Esterase Urine WBC (Auto) Urine RBC (Auto) Fluid Total Protein 3.8 Fluid Albumin 2.3 09/22/20 09/22/20 09/22/20 06:36 06:36 07:00 WBC 16.0 H RBC 3.59 L Hgb 9.3 L Hct 27.5 L MCV 77 L MCH 26.0 L MCHC 33.9 RDW 15.9 H Plt Count 469 H Seg Neutrophils % Not Reportable Sodium 120.8 L* Potassium 5.6 H Chloride 91 L Carbon Dioxide 20 L Anion Gap 10 BUN 51 H Creatinine 1.54 H Est GFR ( Amer) 40 L Glucose 138 H Calcium 8.0 L Total Bilirubin 0.8 AST 78 H Alkaline Phosphatase 57 Total Protein 4.9 L Albumin 2.9 L Urine Color YELLOW Urine Appearance SLIGHTLY-CLOUDY Urine pH 5.0 Ur Specific [place] 1.017 Urine Protein NEGATIVE Urine Glucose (UA) NEGATIVE Urine Ketones NEGATIVE Urine Blood MODERATE H Urine Nitrite NEGATIVE Ur Leukocyte Esterase TRACE H Urine WBC (Auto) 9 Urine RBC (Auto) 60 Fluid Total Protein Fluid Albumin 09/15/20 09/16/20 09/16/20 17:56 02:51 06:16 Troponin I 0.440 0.381 0.258 Impressions: Chest/Abdomen CTA 09/15/20 17:18 IMPRESSION: Extensive bilateral pulmonary emboli with evidence of right heart strain. Head CT 09/15/20 19:02 IMPRESSION: Small area of heterogeneity in the right parietal cortical/subcortical region. Further evaluation with contrast enhanced MRI is recommended. Given presence of hyperdensity, a subtle hemorrhagic component is not excluded. Head MRI 09/15/20 21:48 IMPRESSION: 1. Increased signal intensity present at the level of the parietal lobe suspected secondary to sequela of subacute versus chronic infarction with associated gliosis, cortical laminar necrosis and sequela of petechial hemorrhage at this site. Please correlate with patient neurological findings and consider short-term interval follow-up for stability. No clearly acute hemorrhage is identified. Venous Doppler Study 09/16/20 00:00 IMPRESSION: 1. DVT within the bilateral peroneal and posterior tibial veins. 2. SVT within the right small saphenous vein. Chest X-Ray 09/20/20 00:00 IMPRESSION: Suspect small left effusion with minimal left basilar atelectasis. Paracentesis Ultrasound 09/21/20 00:00 IMPRESSION: Successful ultrasound-guided paracentesis Assessment & Plan - Diagnosis (1) Pulmonary embolism, bilateral Is this a current diagnosis for this admission?: Yes Plan: I think continued anticoagulation still would be a good idea in the face of comfort care. (2) Ascites, malignant Is this a current diagnosis for this admission?: Yes Plan: Paracentesis yesterday but still feeling distended. (3) Adenocarcinoma of stomach, stage 4 Is this a current diagnosis for this admission?: Yes Plan: Cycle #1 of FOLFOX given, but patient does not feel like she can continue on with consideration of care, therefore comfort care seems reasonable. (4) Pain, neoplasm-related Is this a current diagnosis for this admission?: Yes Plan: Change morphine to Dilaudid, increase fentanyl patch. Hopefully that will keep her comfortable. - Time Time Spent with patient: 35 or more minutes
[2020-09-22] MEDS ORDERED: ACETAMINOPHEN 650 MG SUPP.RECT PR PRN ×2 (10:10→11:30)
[2020-09-22] MEDS: ENOXAPARIN SODIUM INJ 100 MG/1 ML DISP.SYRIN SUBCUT SCH (10:15)
[2020-09-22] MEDS: CHOLECALCIFEROL (D3) 1,000 UNIT (25 MCG) TABLET PO SCH (10:15)
[2020-09-22] MEDS: FAMOTIDINE 20 MG TABLET PO SCH (10:15)
[2020-09-22] MEDS: MULTIVITAMIN TABLET PO SCH (10:15)
[2020-09-22] MEDS: ASPIRIN 81 MG TABLET, ENT COATED PO SCH (10:15)
[2020-09-22] MEDS: SENNOSIDES/DOCUSATE 8.6-50 MG 1 EACH TABLET PO SCH (10:15)
[2020-09-22] MEDS: LORAZEPAM INJ 2 MG/1 ML VIAL IV PRN ×6 (10:26→22:07)
--- NOTE | 2020-09-22 10:36 | PDOC PROGRESS REPORT ---
Subjective Date:: 09/22/20 Subjective:: Dr. Bowser and I both saw the patient together. Her brother as well as grandson and nephew were present at the bedside. We had a long discussion. See below for details. Reason For Visit: ABDOMONAL MASS,PULMONARY EMBOLISM,BRAIN LESIONS, Physical Exam Vital Signs: Temp Pulse Resp BP Pulse Ox 97.7 F 92 18 105/54 L 95 09/22/20 08:32 09/22/20 07:00 09/22/20 04:34 09/22/20 04:34 09/22/20 04:34 Intake & Output 09/21/20 09/22/20 09/23/20 06:59 06:59 06:59 Intake Total 1596.8 1450 Output Total 500 420 Balance 1096.8 1030 Weight 91.4 kg General appearance: PRESENT: cooperative, mild distress - Mild to moderate dis tress. Abdomen is uncomfortable this morning., well-developed, well-nourished Head exam: PRESENT: atraumatic, normocephalic Respiratory exam: PRESENT: clear to auscultation xander, symmetrical, unlabored. ABSENT: rales, rhonchi, wheezes Cardiovascular exam: PRESENT: RRR, +S1, +S2 GI/Abdominal exam: PRESENT: distended, firm, tenderness Neurological exam: PRESENT: alert, awake, oriented to person, oriented to place, oriented to time, oriented to situation, CN II-XII grossly intact. ABSENT: altered Psychiatric exam: ABSENT: agitated, anxious Focused psych exam: ABSENT: catatonic, delusional Results Laboratory Results: 09/22/20 06:36 09/22/20 06:36 09/15/20 09/15/20 09/21/20 13:30 13:30 17:41 WBC RBC Hgb Hct MCV MCH MCHC RDW Plt Count Seg Neutrophils % Sodium 118.9 L* Potassium 5.9 H Chloride 87 L Carbon Dioxide 20 L Anion Gap 12 BUN 46 H Creatinine 2.00 H Est GFR ( Amer) 29 L Glucose 152 H Calcium 8.3 L Total Bilirubin AST Alkaline Phosphatase Total Protein Albumin Urine Color Urine Appearance Urine pH Ur Specific [place] Urine Protein Urine Glucose (UA) Urine Ketones Urine Blood Urine Nitrite Ur Leukocyte Esterase Urine WBC (Auto) Urine RBC (Auto) Fluid Total Protein 3.8 Fluid Albumin 2.3 09/22/20 09/22/20 09/22/20 06:36 06:36 07:00 WBC 16.0 H RBC 3.59 L Hgb 9.3 L Hct 27.5 L MCV 77 L MCH 26.0 L MCHC 33.9 RDW 15.9 H Plt Count 469 H Seg Neutrophils % Not Reportable Sodium 120.8 L* Potassium 5.6 H Chloride 91 L Carbon Dioxide 20 L Anion Gap 10 BUN 51 H Creatinine 1.54 H Est GFR ( Amer) 40 L Glucose 138 H Calcium 8.0 L Total Bilirubin 0.8 AST 78 H Alkaline Phosphatase 57 Total Protein 4.9 L Albumin 2.9 L Urine Color YELLOW Urine Appearance SLIGHTLY-CLOUDY Urine pH 5.0 Ur Specific [place] 1.017 Urine Protein NEGATIVE Urine Glucose (UA) NEGATIVE Urine Ketones NEGATIVE Urine Blood MODERATE H Urine Nitrite NEGATIVE Ur Leukocyte Esterase TRACE H Urine WBC (Auto) 9 Urine RBC (Auto) 60 Fluid Total Protein Fluid Albumin 09/15/20 09/16/20 09/16/20 17:56 02:51 06:16 Troponin I 0.440 0.381 0.258 Impressions: Chest/Abdomen CTA 09/15/20 17:18 IMPRESSION: Extensive bilateral pulmonary emboli with evidence of right heart strain. Head CT 09/15/20 19:02 IMPRESSION: Small area of heterogeneity in the right parietal cortical/subcortical region. Further evaluation with contrast enhanced MRI is recommended. Given presence of hyperdensity, a subtle hemorrhagic component is not excluded. Head MRI 09/15/20 21:48 IMPRESSION: 1. Increased signal intensity present at the level of the parietal lobe suspected secondary to sequela of subacute versus chronic infarction with associated gliosis, cortical laminar necrosis and sequela of petechial hemorrhage at this site. Please correlate with patient neurological findings and consider short-term interval follow-up for stability. No clearly acute hemorrhage is identified. Venous Doppler Study 09/16/20 00:00 IMPRESSION: 1. DVT within the bilateral peroneal and posterior tibial veins. 2. SVT within the right small saphenous vein. Chest X-Ray 09/20/20 00:00 IMPRESSION: Suspect small left effusion with minimal left basilar atelectasis. Paracentesis Ultrasound 09/21/20 00:00 IMPRESSION: Successful ultrasound-guided paracentesis Assessment and Plan - Diagnosis (1) Adenocarcinoma of stomach, stage 4 Is this a current diagnosis for this admission?: Yes (2) Hyponatremia Is this a current diagnosis for this admission?: Yes (3) Ascites, malignant Is this a current diagnosis for this admission?: Yes (4) Acute pulmonary embolism with acute cor pulmonale Qualifiers: Pulmonary embolism type: other Qualified Code(s): I26.09 - Other pulmonary embolism with acute cor pulmonale Is this a current diagnosis for this admission?: Yes (5) DVT (deep venous thrombosis) Qualifiers: DVT location: lower extremity Affected thrombotic vein of extremity: peroneal Chronicity: acute Laterality: bilateral Qualified Code(s): I82.453 - Acute embolism and thrombosis of peroneal vein, bilateral Is this a current diagnosis for this admission?: Yes (6) Acute kidney injury Is this a current diagnosis for this admission?: Yes (7) Acute respiratory failure with hypoxia Is this a current diagnosis for this admission?: Yes (8) Elevated troponin Is this a current diagnosis for this admission?: Yes (9) UTI (urinary tract infection) Qualifiers: Urinary tract infection type: acute cystitis Hematuria presence: without hematuria Qualified Code(s): N30.00 - Acute cystitis without hematuria Is this a current diagnosis for this admission?: Yes (10) Pain of metastatic malignancy Is this a current diagnosis for this admission?: Yes - Plan Summary Summary: (1) Adenocarcinoma of stomach, stage 4 Is this a current diagnosis for this admission?: Yes Plan: New diagnosis. Cytology from initial paracentesis has resulted today. Has omental spread. Dr. Bowser initiating chemo tomorrow. (2) Hyponatremia Is this a current diagnosis for this admission?: Yes Plan: Worsened yesterday but seems to be improving now. Wonder if heparin infusion solvent could have played a role in worsening her sodium yesterday. Serial BMPs. I consulted Nephrology and discussed case jack in light of JAIDA - Nephro to see tomorrow. (3) Ascites, malignant Is this a current diagnosis for this admission?: Yes Plan: S/P paracentesis on 09/15 - 4.7L removed S/p therapeutic paracentestis 09/19 - 3.8 L removed. 37.5g of albumin given. (4) Acute pulmonary embolism with acute cor pulmonale Qualifiers: Pulmonary embolism type: other Qualified Code(s): I26.09 - Other pulmonary embolism with acute cor pulmonale Is this a current diagnosis for this admission?: Yes Plan: Submassive PE. CTA shows extensive bilateral pulmonary embolism in the main arteries stretching all the way to the subsegmental branches of lower lobes with evidence of right heart strain on CT and RV dysfunction on echocardiogram. Patient is not a candidate for TPA. Also not a candidate for other aggressive advanced measures. Initially on heparin gtt. Now on Lovenox shots which she will be discharged with. (5) DVT (deep venous thrombosis) Qualifiers: DVT location: lower extremity Affected thrombotic vein of extremity: peroneal Chronicity: acute Laterality: bilateral Qualified Code(s): I82.453 - Acute embolism and thrombosis of peroneal vein, bilateral Is this a current diagnosis for this admission?: Yes Plan: IVC filter placed on 09/17/2020 [was sent to [facility] for the procedure] due to Submassive PE and likely fatality from further embolic event. C/w AC. (6) Acute kidney injury Is this a current diagnosis for this admission?: Yes Plan: Suspect her 3rd spacing of fluid may have left her intravascular depleted. No obstruction on CT. Nephrology has been consulted. (7) Acute respiratory failure with hypoxia Is this a current diagnosis for this admission?: Yes Plan: Secondary to PE. Attempt O2 wean as tolerated. (8) UTI (urinary tract infection) Qualifiers: Urinary tract infection type: acute cystitis Hematuria presence: without hematuria Qualified Code(s): N30.00 - Acute cystitis without hematuria Is this a current diagnosis for this admission?: Yes Plan: Diagnosed as outpt. Completed IV abx course yesterday. (9) Hypertension Is this a current diagnosis for this admission?: Yes Plan: Hypertensive med remains on hold since systolic BPs have been soft. (10) Elevated troponin Is this a current diagnosis for this admission?: Yes Plan: Secondary to right heart strain from PE. (11) pain of metastatic malignancy 09/20/2020 I saw the patient twice today. The evening of visit reveals a definite increase in ascites from this morning. The patient is having significant discomfort. In addition to the abdominal pain she is having back pain. Increased difficulty breathing based on the ascites. It is difficult for her to find a comfortable position. The paracentesis yesterday yielded 3800 mL of fluid. She received 12.5 g of albumin before and after. With the rapid reaccumulation will need to give more albumin. I will give her 25 g tonight and then I have ordered 25 g for the morning as well as repeat paracentesis. I will give another 25 g after the procedure. Unfortunately there is no easy answer for this. I did discuss this with the patient. She does understand that at some point the pain medications can suppress her breathing. She accepted this and stated that getting comfortable was the most important thing right now. Metastatic cancer likely gastric primary-we did review the fact that the chemotherapy was palliative. I told her we will need to try and find a middle ground with regard to fluid accumulation and sodium levels. Right now she is on a 1 L fluid restriction. We will see how this works. Dr. Preciado is consulting for the hyponatremia as well. Continue oxygen supplementation for the respiratory failure with hypoxia that is secondary to pulmonary emboli. As I have scheduled a repeat paracentesis in the morning I am holding tonight's Lovenox as well as tomorrow morning's Lovenox. The patient is having significant pain. 2 mg of morphine was completely ineffective. We will give an additional 4 mg now and change her dosing to 5 mg every 4 hours as needed. She clearly is anxious and this is understandable given her circumstance. I have also ordered lorazepam as needed. We will trial trazodone for sleep. The BUN and creatinine are slowly improving. We will recheck labs tomorrow. Appreciate Dr. Preciado's input. Post procedure we will continue Lovenox for DVTs and pulmonary emboli. Will discuss with Dr. Bowser regarding ongoing outpatient anticoagulation. As noted above the patient does have an IVC filter at this time. I did order a chest x- ray to rule out pleural effusions. I did explain to the patient that the combination of her pulmonary emboli and ascites are both contributing to her difficulty breathing. 09/21/2020 The patient had another 3.5 L of ascites removed today. Once again she feels better. Unfortunately the fluid has been reaccumulating. I am going to give larger doses of albumin to see if it helps stem the flow of fluid into the abdomen. Her hyponatremia is worsening. I discussed this with nephrology. She is going to get 50 g of albumin tonight and 1 L of normal saline. We will recheck chemistries tomorrow. She has an extremely difficult balance regarding sodium, renal function and ascites. We did have a long talk with the patient and we reviewed the difference between full code, DNR and comfort measures. I explained that at this point a DNR would be most reasonable. If she does arrest we would only be trying to resuscitate her to from her cancer anyway. She is adamant that she does not want any discomfort. She had quite a bit of abdominal pain yesterday. We discussed the approach with comfort measures. I told her that I would like to try some albumin and 1 L of fluid tonight and recheck her labs tomorrow. If you continue to lose ground with renal function and sodium I am afraid that there is little that we would be able to do to reverse her decline. Continue current oxygen supplementation at this time. She was started on a fentanyl patch 25 mcg and she still has IV morphine available if needed. Trazodone is available for sleep at this time. She still remains on anticoagulation for the pulmonary emboli. Unfortunately her right heart failure is not helping. For now we will change her CODE STATUS to DNR. Recheck laboratory studies in the morning and review with Dr. Bowser, Dr. Preciado and the patient. 09/22/2020 Over the last several days the patient and her family have had several discussions with me. It was regarding the likelihood of any significant palliative results from the chemotherapy and treatment options that we are tr mahnaz. Giving 50 g of albumin and 1 L of fluid last night helped the creatinine. It did not significantly change the serum sodium and already today she is having pain after having had 3.5 L of fluid removed less than [address] Bowser and I both discussed with the patient that it certainly was her choice. It is not unreasonable to desire comfort measures only at this time. We went through the exact changes that we would make. Per Dr. Bowser suggestion we are going to increase her fentanyl patch to 50 mcg from 25. I am going to discontinue the IV morphine and start IV Dilaudid 1.5 mg every 2 hours as needed and I will change the IV lorazepam to every 2 hours as needed. I reassured the patient that if there is any suggestion of pain, agitation or difficulty breathing she will have breakthrough medications to treat this on top of the Duragesic patch. There will also be Tylenol and Zofran available. There will be no parameters on the medications as she wishes to be pain-free. I did review this with her and she is accepting of this. I will change all of the orders. I did discuss the plan with the patient's nurse as well. The family had all questions answered to their satisfaction. I encouraged them to let the nurse know if there are any problems and she would be able to reach me at any time during the day. - Time Time Spent with patient: 25-34 minutes Medications reviewed and adjusted accordingly: Yes Anticipated Discharge Disposition: Unknown Anticipated Discharge Timeframe: Unknown
[2020-09-22] MEDS ORDERED: FENTANYL 50 MCG/HR PATCH.TD72 TD SCH (10:45)
[2020-09-22] MEDS ORDERED: ACETAMINOPHEN 325 MG TABLET PO PRN (11:30)
[2020-09-22] MEDS: HYDROMORPHONE HCL INJ/PF 2 MG/ML AMPULE IV PRN ×5 (13:06→22:07)
[2020-09-23] MEDS: HYDROMORPHONE HCL INJ/PF 2 MG/ML AMPULE IV PRN ×11 (00:10→22:54)
[2020-09-23] MEDS: LORAZEPAM INJ 2 MG/1 ML VIAL IV PRN ×11 (00:10→22:54)
--- NOTE | 2020-09-23 16:06 | PDOC PROGRESS REPORT ---
Subjective Date:: 09/23/20 Subjective:: Family reports that she is comfortable. She is starting to have longer pauses between breaths and rattling breath sounds. Reason For Visit: ABDOMONAL MASS,PULMONARY EMBOLISM,BRAIN LESIONS, Physical Exam Vital Signs: Temp Pulse Resp BP Pulse Ox 97.7 F 92 18 94/51 L 97 09/23/20 10:00 09/22/20 07:33 09/22/20 07:33 09/22/20 07:33 09/22/20 07:33 Intake & Output 09/22/20 09/23/20 09/24/20 06:59 06:59 06:59 Intake Total 1450 1050 Output Total 420 Balance 1030 1050 Weight 91.4 kg 91.6 kg General appearance: PRESENT: no acute distress, other - Obtunded Head exam: PRESENT: atraumatic, normocephalic Respiratory exam: PRESENT: unlabored, other - Bradypnea with rattling breath sounds. ABSENT: tachypnea, wheezes Cardiovascular exam: PRESENT: RRR, +S1, +S2 Rectal exam: PRESENT: deferred Gentrourinary exam: PRESENT: indwelling catheter Musculoskeletal exam: ABSENT: ambulatory Neurological exam: ABSENT: alert, awake Focused psych exam: PRESENT: other - Obtunded Results Laboratory Results: 09/22/20 06:36 09/22/20 06:36 09/15/20 09/16/20 09/16/20 17:56 02:51 06:16 Troponin I 0.440 0.381 0.258 Impressions: Chest/Abdomen CTA 09/15/20 17:18 IMPRESSION: Extensive bilateral pulmonary emboli with evidence of right heart strain. Head CT 09/15/20 19:02 IMPRESSION: Small area of heterogeneity in the right parietal cortical/subcortical region. Further evaluation with contrast enhanced MRI is recommended. Given presence of hyperdensity, a subtle hemorrhagic component is not excluded. Head MRI 09/15/20 21:48 IMPRESSION: 1. Increased signal intensity present at the level of the parietal lobe suspected secondary to sequela of subacute versus chronic infarction with associated gliosis, cortical laminar necrosis and sequela of petechial hemorrhage at this site. Please correlate with patient neurological findings and consider short-term interval follow-up for stability. No clearly acute hemorrhage is identified. Venous Doppler Study 09/16/20 00:00 IMPRESSION: 1. DVT within the bilateral peroneal and posterior tibial veins. 2. SVT within the right small saphenous vein. Chest X-Ray 09/20/20 00:00 IMPRESSION: Suspect small left effusion with minimal left basilar atelectasis. Paracentesis Ultrasound 09/21/20 00:00 IMPRESSION: Successful ultrasound-guided paracentesis Assessment and Plan - Diagnosis (1) Adenocarcinoma of stomach, stage 4 Is this a current diagnosis for this admission?: Yes (2) Hyponatremia Is this a current diagnosis for this admission?: Yes (3) Ascites, malignant Is this a current diagnosis for this admission?: Yes (4) Acute pulmonary embolism with acute cor pulmonale Qualifiers: Pulmonary embolism type: other Qualified Code(s): I26.09 - Other pulmonary embolism with acute cor pulmonale Is this a current diagnosis for this admission?: Yes (5) DVT (deep venous thrombosis) Qualifiers: DVT location: lower extremity Affected thrombotic vein of extremity: peroneal Chronicity: acute Laterality: bilateral Qualified Code(s): I82.453 - Acute embolism and thrombosis of peroneal vein, bilateral Is this a current diagnosis for this admission?: Yes (6) Acute kidney injury Is this a current diagnosis for this admission?: Yes (7) Acute respiratory failure with hypoxia Is this a current diagnosis for this admission?: Yes (8) Elevated troponin Is this a current diagnosis for this admission?: Yes (9) UTI (urinary tract infection) Qualifiers: Urinary tract infection type: acute cystitis Hematuria presence: without hematuria Qualified Code(s): N30.00 - Acute cystitis without hematuria Is this a current diagnosis for this admission?: Yes (10) Pain of metastatic malignancy Is this a current diagnosis for this admission?: Yes - Plan Summary Summary: (1) Adenocarcinoma of stomach, stage 4 Is this a current diagnosis for this admission?: Yes Plan: New diagnosis. Cytology from initial paracentesis has resulted today. Has omental spread. Dr. Bowser initiating chemo tomorrow. (2) Hyponatremia Is this a current diagnosis for this admission?: Yes Plan: Worsened yesterday but seems to be improving now. Wonder if heparin infusion solvent could have played a role in worsening her sodium yesterday. Serial BMPs. I consulted Nephrology and discussed case jack in light of JAIDA - Nephro to see tomorrow. (3) Ascites, malignant Is this a current diagnosis for this admission?: Yes Plan: S/P paracentesis on 09/15 - 4.7L removed S/p therapeutic paracentestis 09/19 - 3.8 L removed. 37.5g of albumin given. (4) Acute pulmonary embolism with acute cor pulmonale Qualifiers: Pulmonary embolism type: other Qualified Code(s): I26.09 - Other pulmonary embolism with acute cor pulmonale Is this a current diagnosis for this admission?: Yes Plan: Submassive PE. CTA shows extensive bilateral pulmonary embolism in the main arteries stretching all the way to the subsegmental branches of lower lobes with evidence of right heart strain on CT and RV dysfunction on echocardiogram. Patient is not a candidate for TPA. Also not a candidate for other aggressive advanced measures. Initially on heparin gtt. Now on Lovenox shots which she will be discharged with. (5) DVT (deep venous thrombosis) Qualifiers: DVT location: lower extremity Affected thrombotic vein of extremity: peroneal Chronicity: acute Laterality: bilateral Qualified Code(s): I82.453 - Acute embolism and thrombosis of peroneal vein, bilateral Is this a current diagnosis for this admission?: Yes Plan: IVC filter placed on 09/17/2020 [was sent to [facility] for the procedure] due to Submassive PE and likely fatality from further embolic event. C/w AC. (6) Acute kidney injury Is this a current diagnosis for this admission?: Yes Plan: Suspect her 3rd spacing of fluid may have left her intravascular depleted. No obstruction on CT. Nephrology has been consulted. (7) Acute respiratory failure with hypoxia Is this a current diagnosis for this admission?: Yes Plan: Secondary to PE. Attempt O2 wean as tolerated. (8) UTI (urinary tract infection) Qualifiers: Urinary tract infection type: acute cystitis Hematuria presence: without hematuria Qualified Code(s): N30.00 - Acute cystitis without hematuria Is this a current diagnosis for this admission?: Yes Plan: Diagnosed as outpt. Completed IV abx course yesterday. (9) Hypertension Is this a current diagnosis for this admission?: Yes Plan: Hypertensive med remains on hold since systolic BPs have been soft. (10) Elevated troponin Is this a current diagnosis for this admission?: Yes Plan: Secondary to right heart strain from PE. (11) pain of metastatic malignancy 09/20/2020 I saw the patient twice today. The evening of visit reveals a definite increase in ascites from this morning. The patient is having significant discomfort. In addition to the abdominal pain she is having back pain. Increased difficulty breathing based on the ascites. It is difficult for her to find a comfortable position. The paracentesis yesterday yielded 3800 mL of fluid. She received 12.5 g of albumin before and after. With the rapid reaccumulation will need to give more albumin. I will give her 25 g tonight and then I have ordered 25 g for the morning as well as repeat paracentesis. I will give another 25 g after the procedure. Unfortunately there is no easy answer for this. I did discuss this with the patient. She does understand that at some point the pain medications can suppress her breathing. She accepted this and stated that getting comfortable was the most important thing right now. Metastatic cancer likely gastric primary-we did review the fact that the chemotherapy was palliative. I told her we will need to try and find a middle ground with regard to fluid accumulation and sodium levels. Right now she is on a 1 L fluid restriction. We will see how this works. Dr. Preciado is consulting for the hyponatremia as well. Continue oxygen supplementation for the respiratory failure with hypoxia that is secondary to pulmonary emboli. As I have scheduled a repeat paracentesis in the morning I am holding tonight's Lovenox as well as tomorrow morning's Lovenox. The patient is having significant pain. 2 mg of morphine was completely ineffective. We will give an additional 4 mg now and change her dosing to 5 mg every 4 hours as needed. She clearly is anxious and this is understandable given her circumstance. I have also ordered lorazepam as needed. We will trial trazodone for sleep. The BUN and creatinine are slowly improving. We will recheck labs tomorrow. Appreciate Dr. Preciado's input. Post procedure we will continue Lovenox for DVTs and pulmonary emboli. Will discuss with Dr. Bowser regarding ongoing outpatient anticoagulation. As noted above the patient does have an IVC filter at this time. I did order a chest x- ray to rule out pleural effusions. I did explain to the patient that the combination of her pulmonary emboli and ascites are both contributing to her difficulty breathing. 09/21/2020 The patient had another 3.5 L of ascites removed today. Once again she feels better. Unfortunately the fluid has been reaccumulating. I am going to give larger doses of albumin to see if it helps stem the flow of fluid into the abdomen. Her hyponatremia is worsening. I discussed this with nephrology. She is going to get 50 g of albumin tonight and 1 L of normal saline. We will recheck chemistries tomorrow. She has an extremely difficult balance regarding sodium, renal function and ascites. We did have a long talk with the patient and we reviewed the difference between full code, DNR and comfort measures. I explained that at this point a DNR would be most reasonable. If she does arrest we would only be trying to resuscitate her to from her cancer anyway. She is adamant that she does not want any discomfort. She had quite a bit of abdominal pain yesterday. We discussed the approach with comfort measures. I told her that I would like to try some albumin and 1 L of fluid tonight and recheck her labs tomorrow. If you continue to lose ground with renal function and sodium I am afraid that there is little that we would be able to do to reverse her decline. Continue current oxygen supplementation at this time. She was started on a fentanyl patch 25 mcg and she still has IV morphine available if needed. Trazodone is available for sleep at this time. She still remains on anticoagulation for the pulmonary emboli. Unfortunately her right heart failure is not helping. For now we will change her CODE STATUS to DNR. Recheck laboratory studies in the morning and review with Dr. Bowser, Dr. Preciado and the patient. 09/22/2020 Over the last several days the patient and her family have had several discussions with me. It was regarding the likelihood of any significant palliative results from the chemotherapy and treatment options that we are trying. Giving 50 g of albumin and 1 L of fluid last night helped the creatinine. It did not significantly change the serum sodium and already today she is having pain after having had 3.5 L of fluid removed less than [address] Bowser and I both discussed with the patient that it certainly was her choice. It is not unreasonable to desire comfort measures only at this time. We went through the exact changes that we would make. [facility] are going to increase her fentanyl patch to 50 mcg from 25. I am going to discontinue the IV morphine and start IV Dilaudid 1.5 mg every 2 hours as needed and I will change the IV lorazepam to every 2 hours as needed. I reassured the patient that if there is any suggestion of pain, agitation or difficulty breathing she will have breakthrough medications to treat this on top of the Duragesic patch. There will also be Tylenol and Zofran available. There will be no parameters on the medications as she wishes to be pain-free. I did review this with her and she is accepting of this. I will change all of the orders. I did discuss the plan with the patient's nurse as well. The family had all questions answered to their satisfaction. I encouraged them to let the nurse know if there are any problems and she would be able to reach me at any time during the day. 09/23/2020 The patient is obtunded. The family feels that she is comfortable as she requested. I did remove her oxygen today. She is beginning to have rattling breath sounds with lower respiratory rate. The family did not have any new questions and more pleased with the care despite the unfortunate circumstance. We will continue aggressive comfort measures. Life expectancy is probably less than 24 hours. - Time Time Spent with patient: Less than 15 minutes Medications reviewed and adjusted accordingly: Yes Anticipated Discharge Disposition: Anticipated Discharge Timeframe: within 48 hours
[2020-09-24] MEDS: HYDROMORPHONE HCL INJ/PF 2 MG/ML AMPULE IV PRN ×10 (00:55→21:31)
[2020-09-24] MEDS: LORAZEPAM INJ 2 MG/1 ML VIAL IV PRN ×9 (03:37→21:32)
--- NOTE | 2020-09-24 10:47 | PDOC PROGRESS REPORT ---
Subjective Date:: 09/24/20 Subjective:: Spoke with family who is at bedside, patient seems comfortable, respirations have slowed. Reason For Visit: ABDOMONAL MASS,PULMONARY EMBOLISM,BRAIN LESIONS, Physical Exam Vital Signs: Temp Pulse Resp BP Pulse Ox 98.2 F 84 12 69/28 L 86 L 09/24/20 07:24 09/24/20 07:24 09/24/20 07:24 09/24/20 07:24 09/24/20 07:24 Intake & Output 09/23/20 09/24/20 09/25/20 06:59 06:59 06:59 Intake Total 1050 Balance 1050 Weight 91.6 kg 91.2 kg General appearance: PRESENT: no acute distress, well-developed, well-nourished Head exam: PRESENT: atraumatic, normocephalic Eye exam: PRESENT: conjunctiva pink, EOMI, PERRLA. ABSENT: scleral icterus Ear exam: PRESENT: normal external ear exam Mouth exam: PRESENT: moist, tongue midline Neck exam: ABSENT: carotid bruit, JVD, lymphadenopathy, thyromegaly Respiratory exam: PRESENT: clear to auscultation xander. ABSENT: rales, rhonchi, wheezes Cardiovascular exam: PRESENT: RRR. ABSENT: diastolic murmur, rubs, systolic murmur Pulses: PRESENT: normal dorsalis pedis pul Vascular exam: PRESENT: normal capillary refill GI/Abdominal exam: PRESENT: normal bowel sounds, soft. ABSENT: distended, guarding, mass, organolmegaly, rebound, tenderness Rectal exam: PRESENT: deferred Extremities exam: PRESENT: full ROM. ABSENT: calf tenderness, clubbing, pedal edema Neurological exam: PRESENT: alert, awake, oriented to person, oriented to place, oriented to time, oriented to situation, CN II-XII grossly intact. ABSENT: motor sensory deficit Psychiatric exam: PRESENT: appropriate affect, normal mood. ABSENT: homicidal ideation, suicidal ideation Skin exam: PRESENT: dry, intact, warm. ABSENT: cyanosis, rash Results Laboratory Results: 09/22/20 06:36 09/22/20 06:36 09/15/20 09/16/20 09/16/20 17:56 02:51 06:16 Troponin I 0.440 0.381 0.258 Impressions: Chest/Abdomen CTA 09/15/20 17:18 IMPRESSION: Extensive bilateral pulmonary emboli with evidence of right heart strain. Head CT 09/15/20 19:02 IMPRESSION: Small area of heterogeneity in the right parietal cortical/subcortical region. Further evaluation with contrast enhanced MRI is recommended. Given presence of hyperdensity, a subtle hemorrhagic component is not excluded. Head MRI 09/15/20 21:48 IMPRESSION: 1. Increased signal intensity present at the level of the parietal lobe suspected secondary to sequela of subacute versus chronic infarction with associated gliosis, cortical laminar necrosis and sequela of petechial hemorrhage at this site. Please correlate with patient neurological findings and consider short-term interval follow-up for stability. No clearly acute hemorrhage is identified. Venous Doppler Study 09/16/20 00:00 IMPRESSION: 1. DVT within the bilateral peroneal and posterior tibial veins. 2. SVT within the right small saphenous vein. Chest X-Ray 09/20/20 00:00 IMPRESSION: Suspect small left effusion with minimal left basilar atelectasis. Paracentesis Ultrasound 09/21/20 00:00 IMPRESSION: Successful ultrasound-guided paracentesis Assessment & Plan - Diagnosis (1) Pulmonary embolism, bilateral Is this a current diagnosis for this admission?: Yes Plan: Anticoagulation discontinued, comfort care only (2) Ascites, malignant Is this a current diagnosis for this admission?: Yes Plan: Comfort care only for now (3) Adenocarcinoma of stomach, stage 4 Is this a current diagnosis for this admission?: Yes Plan: Cycle #1 of FOLFOX given but patient wanted comfort care only, continued now, seems comfortable (4) Pain, neoplasm-related Is this a current diagnosis for this admission?: Yes Plan: Continue with current pain regimen - Time Time Spent with patient: 15-24 minutes Anticipated discharge: Other - Likely within 24 to 48 hours Disposition: We will follow peripherally only for now - Inpatient Certification Based on my medical assessment, after consideration of the patient's comorbidities, presenting symptoms, or acuity I expect that the services needed warrant INPATIENT care.: Yes I certify that my determination is in accordance with my understanding of Medicare's requirements for reasonable and necessary INPATIENT services [42 CFR 412.3e].: Yes Medical Necessity: Need for Pain Control
--- NOTE | 2020-09-24 18:22 | PDOC PROGRESS REPORT ---
Subjective Date:: 09/24/20 Subjective:: The patient's son reported to the nurse that the patient was exhibiting some sig ns of increased pain. There was grimacing and apparently air hunger. I was contacted and felt it was appropriate to increase her IV analgesia. At the time of this visit the son reports that the higher dose was effective and she has been comfortable ever since. Reason For Visit: ABDOMONAL MASS,PULMONARY EMBOLISM,BRAIN LESIONS, Physical Exam Vital Signs: Temp Pulse Resp BP Pulse Ox 98.2 F 84 12 69/28 L 86 L 09/24/20 10:00 09/24/20 07:24 09/24/20 07:24 09/24/20 07:24 09/24/20 07:24 Intake & Output 09/23/20 09/24/20 09/25/20 06:59 06:59 06:59 Intake Total 1050 Balance 1050 Weight 91.6 kg 91.2 kg General appearance: PRESENT: other - Obtunded Respiratory exam: PRESENT: other - Readily breath sounds Cardiovascular exam: PRESENT: RRR, +S1, +S2 GI/Abdominal exam: PRESENT: distended, soft Rectal exam: PRESENT: deferred Gentrourinary exam: PRESENT: indwelling catheter Neurological exam: PRESENT: other - Obtunded. ABSENT: alert, awake Psychiatric exam: PRESENT: other - Obtunded Focused psych exam: ABSENT: restlessness Results Laboratory Results: 09/22/20 06:36 09/22/20 06:36 09/15/20 09/16/20 09/16/20 17:56 02:51 06:16 Troponin I 0.440 0.381 0.258 Impressions: Chest/Abdomen CTA 09/15/20 17:18 IMPRESSION: Extensive bilateral pulmonary emboli with evidence of right heart strain. Head CT 09/15/20 19:02 IMPRESSION: Small area of heterogeneity in the right parietal cortical/subcortical region. Further evaluation with contrast enhanced MRI is recommended. Given presence of hyperdensity, a subtle hemorrhagic component is not excluded. Head MRI 09/15/20 21:48 IMPRESSION: 1. Increased signal intensity present at the level of the parietal lobe suspected secondary to sequela of subacute versus chronic infarction with associated gliosis, cortical laminar necrosis and sequela of petechial hemorrhage at this site. Please correlate with patient neurological findings and consider short-term interval follow-up for stability. No clearly acute hemorrhage is identified. Venous Doppler Study 09/16/20 00:00 IMPRESSION: 1. DVT within the bilateral peroneal and posterior tibial veins. 2. SVT within the right small saphenous vein. Chest X-Ray 09/20/20 00:00 IMPRESSION: Suspect small left effusion with minimal left basilar atelectasis. Paracentesis Ultrasound 09/21/20 00:00 IMPRESSION: Successful ultrasound-guided paracentesis Assessment and Plan - Diagnosis (1) Adenocarcinoma of stomach, stage 4 Is this a current diagnosis for this admission?: Yes (2) Hyponatremia Is this a current diagnosis for this admission?: Yes (3) Ascites, malignant Is this a current diagnosis for this admission?: Yes (4) Acute pulmonary embolism with acute cor pulmonale Qualifiers: Pulmonary embolism type: other Qualified Code(s): I26.09 - Other pulmonary embolism with acute cor pulmonale Is this a current diagnosis for this admission?: Yes (5) DVT (deep venous thrombosis) Qualifiers: DVT location: lower extremity Affected thrombotic vein of extremity: peroneal Chronicity: acute Laterality: bilateral Qualified Code(s): I82.453 - Acute embolism and thrombosis of peroneal vein, bilateral Is this a current diagnosis for this admission?: Yes (6) Acute kidney injury Is this a current diagnosis for this admission?: Yes (7) Acute respiratory failure with hypoxia Is this a current diagnosis for this admission?: Yes (8) Elevated troponin Is this a current diagnosis for this admission?: Yes (9) UTI (urinary tract infection) Qualifiers: Urinary tract infection type: acute cystitis Hematuria presence: without hematuria Qualified Code(s): N30.00 - Acute cystitis without hematuria Is this a current diagnosis for this admission?: Yes (10) Pain of metastatic malignancy Is this a current diagnosis for this admission?: Yes - Plan Summary Summary: (1) Adenocarcinoma of stomach, stage 4 Is this a current diagnosis for this admission?: Yes Plan: New diagnosis. Cytology from initial paracentesis has resulted today. Has omental spread. Dr. Bowser initiating chemo tomorrow. (2) Hyponatremia Is this a current diagnosis for this admission?: Yes Plan: Worsened yesterday but seems to be improving now. Wonder if heparin infusion solvent could have played a role in worsening her sodium yesterday. Serial BMPs. I consulted Nephrology and discussed case jack in light of JAIDA - Nephro to see tomorrow. (3) Ascites, malignant Is this a current diagnosis for this admission?: Yes Plan: S/P paracentesis on 09/15 - 4.7L removed S/p therapeutic paracentestis 09/19 - 3.8 L removed. 37.5g of albumin given. (4) Acute pulmonary embolism with acute cor pulmonale Qualifiers: Pulmonary embolism type: other Qualified Code(s): I26.09 - Other pulmonary embolism with acute cor pulmonale Is this a current diagnosis for this admission?: Yes Plan: Submassive PE. CTA shows extensive bilateral pulmonary embolism in the main arteries stretching all the way to the subsegmental branches of lower lobes with evidence of right heart strain on CT and RV dysfunction on echocardiogram. Patient is not a candidate for TPA. Also not a candidate for other aggressive advanced measures. Initially on heparin gtt. Now on Lovenox shots which she will be discharged with. (5) DVT (deep venous thrombosis) Qualifiers: DVT location: lower extremity Affected thrombotic vein of extremity: peroneal Chronicity: acute Laterality: bilateral Qualified Code(s): I82.453 - Acute embolism and thrombosis of peroneal vein, bilateral Is this a current diagnosis for this admission?: Yes Plan: IVC filter placed on 09/17/2020 [was sent to [facility] for the procedure] due to Submassive PE and likely fatality from further embolic event. C/w AC. (6) Acute kidney injury Is this a current diagnosis for this admission?: Yes Plan: Suspect her 3rd spacing of fluid may have left her intravascular depleted. No obstruction on CT. Nephrology has been consulted. (7) Acute respiratory failure with hypoxia Is this a current diagnosis for this admission?: Yes Plan: Secondary to PE. Attempt O2 wean as tolerated. (8) UTI (urinary tract infection) Qualifiers: Urinary tract infection type: acute cystitis Hematuria presence: without hematuria Qualified Code(s): N30.00 - Acute cystitis without hematuria Is this a current diagnosis for this admission?: Yes Plan: Diagnosed as outpt. Completed IV abx course yesterday. (9) Hypertension Is this a current diagnosis for this admission?: Yes Plan: Hypertensive med remains on hold since systolic BPs have been soft. (10) Elevated troponin Is this a current diagnosis for this admission?: Yes Plan: Secondary to right heart strain from PE. (11) pain of metastatic malignancy 09/20/2020 I saw the patient twice today. The evening of visit reveals a definite increase in ascites from this morning. The patient is having significant discomfort. In addition to the abdominal pain she is having back pain. Increased difficulty breathing based on the ascites. It is difficult for her to find a comfortable position. The paracentesis yesterday yielded 3800 mL of fluid. She received 12.5 g of albumin before and after. With the rapid reaccumulation will need to give more albumin. I will give her 25 g tonight and then I have ordered 25 g for the morning as well as repeat paracentesis. I will give another 25 g after the procedure. Unfortunately there is no easy answer for this. I did discuss this with the patient. She does understand that at some point the pain medications can suppress her breathing. She accepted this and stated that getting comfortable was the most important thing right now. Metastatic cancer likely gastric primary-we did review the fact that the chemotherapy was palliative. I told her we will need to try and find a middle ground with regard to fluid accumulation and sodium levels. Right now she is on a 1 L fluid restriction. We will see how this works. Dr. Preciado is consulting for the hyponatremia as well. Continue oxygen supplementation for the respiratory failure with hypoxia that is secondary to pulmonary emboli. As I have scheduled a repeat paracentesis in the morning I am holding tonight's Lovenox as well as tomorrow morning's Lovenox. The patient is having significant pain. 2 mg of morphine was completely ineffective. We will give an additional 4 mg now and change her dosing to 5 mg every 4 hours as needed. She clearly is anxious and this is understandable given her circumstance. I have also ordered lorazepam as needed. We will trial trazodone for sleep. The BUN and creatinine are slowly improving. We will recheck labs tomorrow. Appreciate Dr. Preciado's input. Post procedure we will continue Lovenox for DVTs and pulmonary emboli. Will discuss with Dr. Bowser regarding ongoing outpatient anticoagulation. As noted above the patient does have an IVC filter at this time. I did order a chest x- ray to rule out pleural effusions. I did explain to the patient that the combination of her pulmonary emboli and ascites are both contributing to her difficulty breathing. 09/21/2020 The patient had another 3.5 L of ascites removed today. Once again she feels better. Unfortunately the fluid has been reaccumulating. I am going to give larger doses of albumin to see if it helps stem the flow of fluid into the abdomen. Her hyponatremia is worsening. I discussed this with nephrology. She is going to get 50 g of albumin tonight and 1 L of normal saline. We will recheck chemi stries tomorrow. She has an extremely difficult balance regarding sodium, renal function and ascites. We did have a long talk with the patient and we reviewed the difference between full code, DNR and comfort measures. I explained that at this point a DNR would be most reasonable. If she does arrest we would only be trying to resuscitate her to from her cancer anyway. She is adamant that she does not want any discomfort. She had quite a bit of abdominal pain yesterday. We discussed the approach with comfort measures. I told her that I would like to try some albumin and 1 L of fluid tonight and recheck her labs tomorrow. If you continue to lose ground with renal function and sodium I am afraid that there is little that we would be able to do to reverse her decline. Continue current oxygen supplementation at this time. She was started on a fentanyl patch 25 mcg and she still has IV morphine available if needed. Trazodone is available for sleep at this time. She still remains on anticoagulation for the pulmonary emboli. Unfortunately her right heart failure is not helping. For now we will change her CODE STATUS to DNR. Recheck laboratory studies in the morning and review with Dr. Bowser, Dr. Preciado and the patient. 09/22/2020 Over the last several days the patient and her family have had several discussions with me. It was regarding the likelihood of any significant palliative results from the chemotherapy and treatment options that we are trying. Giving 50 g of albumin and 1 L of fluid last night helped the creatinine. It did not significantly change the serum sodium and already today she is having pain after having had 3.5 L of fluid removed less than [address] Bowser and I both discussed with the patient that it certainly was her choice. It is not unreasonable to desire comfort measures only at this time. We went through the exact changes that we would make. Per Dr. Bowser suggestion we are going to increase her fentanyl patch to 50 mcg from 25. I am going to discontinue the IV morphine and start IV Dilaudid 1.5 mg every 2 hours as needed and I will change the IV lorazepam to every 2 hours as needed. I reassured the patient that if there is any suggestion of pain, agitation or difficulty breathing she will have breakthrough medications to treat this on top of the Duragesic patch. There will also be Tylenol and Zofran available. There will be no parameters on the medications as she wishes to be pain-free. I did review this with her and she is accepting of this. I will change all of the orders. I did discuss the plan with the patient's nurse as well. The family had all questions answered to their satisfaction. I encouraged them to let the nurse know if there are any problems and she would be able to reach me at any time during the day. 09/23/2020 The patient is obtunded. The family feels that she is comfortable as she requested. I did remove her oxygen today. She is beginning to have rattling breath sounds with lower respiratory rate. The family did not have any new questions and more pleased with the care despite the unfortunate circumstance. We will continue aggressive comfort measures. Life expectancy is probably less than 24 hours. 09/24/2020 Patient appears comfortable now. Discussed with the patient's son the circumstances for increased pain medications. The change certainly is appr opriate. The patient still has low respiratory rate with shallow inspirations. She exhibits a rattling breath sounds. Overall she does appear to be without pain. Discussed with the son the goal is present option of adjusting medications based on the patient. The nursing staff provides excellent care and the family is very pleased. Plan was discussed with nursing. - Time Time Spent with patient: Less than 15 minutes Medications reviewed and adjusted accordingly: Yes Anticipated Discharge Disposition: Other Anticipated Discharge Timeframe: within 48 hours - Life expectancy 24 to 48 hours
[2020-09-24 20:59] VITALS: BP 71/26
--- NOTE | 2020-09-25 07:50 | Death Summary ---
Summary Date : 09/24/20 Time of :: 22:06 Autopsy: No Resuscitation Status: Comfort Measures Only Primary Care Provider: [facility] Consult[facility] Provider: Ilana Bowser - Final Diagnosis (1) Adenocarcinoma of stomach, stage 4 Is this a current diagnosis for this admission?: Yes (2) Hyponatremia Is this a current diagnosis for this admission?: Yes (3) Ascites, malignant Is this a current diagnosis for this admission?: Yes (4) Acute pulmonary embolism with acute cor pulmonale Is this a current diagnosis for this admission?: Yes (5) DVT (deep venous thrombosis) Is this a current diagnosis for this admission?: Yes (6) Acute kidney injury Is this a current diagnosis for this admission?: Yes (7) Acute respiratory failure with hypoxia Is this a current diagnosis for this admission?: Yes (8) Elevated troponin Is this a current diagnosis for this admission?: Yes (9) UTI (urinary tract infection) Is this a current diagnosis for this admission?: Yes (10) Pain of metastatic malignancy Is this a current diagnosis for this admission?: Yes Hospital Course:: The patient was admitted on 09/16/2020. She was having increasing difficulty breathing as well as increasing abdominal girth with pain. She was experiencing increasing fatigue and dyspnea. That was the first time she had ever experienced the symptoms. Evaluation in the hospital revealed extensive bilateral pulmonary emboli with right heart strain. This caused a transient increase of her troponin but this began to resolve. She required oxygen therapy for acute respiratory failure with hypoxia most likely due to the large volume ascites pushing up on her diaphragm. She was having abdominal pain due to the extent of the ascites. Imaging also discovered multiple lesions (adeno carcinoma) in the abdomen likely gastric primary but unsure as there were extensive metastatic lesions. She had rapidly accumulating ascites. She had large-volume paracenteses on September 15 (4750 mL), September 19 (3800 mL) and September 21 (3500 mL) for a total of just over 12 L in 6 days. She had severe hyponatremia that was not responsive to treatment. She exhibited worsening renal function. Nephrology and oncology were consulted. Overall it was felt that there was no hope of correcting her hyponatremia. Her renal function continued to decline and after extensive discussions the patient preferred comfort measures only. At that point, after several discussions with the patient and family, she requested comfort measures only status. Palliative chemotherapy has been initiated but oncology felt it would be at least a week or 2 before and a positive effect will be seen. She was unwilling to mostly due to her pain in the abdomen as well as low back. Once this choice was made the treatment plan was changed accordingly. She had IV Dilaudid, IV lorazepam, IV Zofran and acetaminophen available. During the course of the remaining days it was felt that the patient was still having some episodes of discomfort and then started to exhibit air hunger. Dilaudid dose was increased accordingly. When I saw her on the morning of 24 September she appeared more comfortable. Her son was present at the bedside and stated that the increased dose of medication was effective. The patient did at 10:06 PM September 24, 2020
== END 2020-09-24 23:50 | DRG 175 ==
LOC: ER 16:38 → EH 09-16 01:31 → 5 09-16 06:27
PROVIDERS: ADMIT Student in an Organized Health Care Education/Training Program; ATTEND Hospitalist
PROC: B24BZZ4 Ultrasonography of Heart with Aorta, Transesophageal (ICD-10-PCS; 2020-09-16)
PROC: 0W9G3ZZ Drainage of Peritoneal Cavity, Percutaneous Approach (ICD-10-PCS; principal; 2020-09-19)
PROC: 0W9G3ZX Drainage of Peritoneal Cavity, Percutaneous Approach, Diagnostic (ICD-10-PCS; 2020-09-21)
DX: I26.09 Other pulmonary embolism with acute cor pulmonale (principal); J96.01 Acute respiratory failure with hypoxia; R18.0 Malignant ascites; N17.9 Acute kidney failure, unspecified; C16.9 Malignant neoplasm of stomach, unspecified; E87.1 Hypo-osmolality and hyponatremia; N39.0 Urinary tract infection, site not specified; I82.453 Acute embolism and thrombosis of peroneal vein, bilateral; N30.00 Acute cystitis without hematuria; R77.8 Other specified abnormalities of plasma proteins; G89.3 Neoplasm related pain (acute) (chronic); I10 Essential (primary) hypertension; E78.5 Hyperlipidemia, unspecified; E87.5 Hyperkalemia; I95.9 Hypotension, unspecified; E03.9 Hypothyroidism, unspecified; Z20.828 Contact with and (suspected) exposure to other viral communicable diseases; Z60.2 Problems related to living alone; Z83.3 Family history of diabetes mellitus; Z82.49 Family history of ischemic heart disease and other diseases of the circulatory system; Z79.899 Other long term (current) drug therapy; Z79.82 Long term (current) use of aspirin; Z88.8 Allergy status to other drugs, medicaments and biological substances
CPT/HCPCS: 36415; 49083; 70450; 70551; 71045; 71275; 74177; 80048; 80053; 81001; 82040; 82042; 82533; 83690; 83930; 83935; 84157; 84300; 84439; 84443; 84484; 84550; 85025; 85027; 85610; 85730; 87040; 93005; 93010; 93306; 93970; 96365; 96366; 96367; 96368; 96375; 96411; 96413; 96415; 96416; 96417; 99285; 0241U; C9803; J0640; J0692; J0696; J1100; J1170; J1644; J1650; J1940; J2060; J2270; J2405; J2469; J3370; J3490; J7030; J7040; J7060; J7120; J9190; J9263; P9041; P9047